=== PATIENT | female | born 1940 | race Asian ===

== ENCOUNTER 2022-01-25 21:34 | Inpatient (IN) | payer MEDICARE, OTHER ==
[~2022-01-25] VITALS: Ht 144.8 cm; Wt 56.7 kg
--- NOTE | 2022-01-25 22:19 | NUR ---
BIBPA/DAUGHTER FOR EVALUATION OF L1 FRACTURE. REFFERED BY DR SWIFT. PATIENT ALERT AND ORIENTED X3. AMBULATORY BUT BROUGHT IN BY STRETCHER. PATIENT IN BED 04 ON MONITOR AND POX AWAITING MD SARMIENTO.
[2022-01-25] MEDS ORDERED: MORPHINE SULFATE INJ 4 MG/ML DISP.SYRIN ONE (22:48)
[2022-01-25] MEDS ORDERED: MORPHINE SULFATE INJ 2 MG/ML DISP.SYRIN IV ONE (23:00)
--- NOTE | 2022-01-25 23:00 | NUR ---
BLOOD COLLECTED AND SENT TO LAB
--- NOTE | 2022-01-25 23:00 | NUR ---
COVID SWAB DONE AND SENT TO LAB
[2022-01-25 23:32] LABS: BASOPHILS % (AUTO) 0.2 % (0.0-2.0); EOSINOPHILS % (AUTO) 0.1 % (0.0-6.0); HEMATOCRIT 30 % (33-45); HEMOGLOBIN 9.9 g/dL (11.5-14.8); LYMPHOCYTES # (AUTO) 0.6 K/uL (0.8-4.8); LYMPHOCYTES % (AUTO) 11.1 % (20.0-44.0); MEAN CORPUSCULAR HGB CONC 34 g/dl (31.0-36.0); MEAN CORPUSCULAR VOLUME 94 fL (82-100); MONOCYTES # (AUTO) 0.3 K/uL (0.1-1.30); MONOCYTES % (AUTO) 5.8 % (2.0-12.0); NEUTROPHILS # (AUTO) 4.5 K/uL (1.8-8.9); NEUTROPHILS % (AUTO) 82.8 % (43.0-81.0); PLATELET COUNT (AUTO) 513 K/uL (150-450); RED BLOOD CELL COUNT(AUTO) 3.15 MIL/uL (4.0-5.2); WHITE BLOOD COUNT (AUTO) 5.4 K/uL (4.3-11.0)
[2022-01-25 23:44] LABS: CALCIUM, SERUM 9.1 mg/dL (8.5-10.1); CREATININE 1.2 mg/dL (0.6-1.3); POTASSIUM 5.7 mmol/L (3.5-5.1)
[2022-01-26] VITALS (32 sets, daily range): BP systolic 46–145; BP diastolic 27–100
[2022-01-26] MEDS ORDERED: DEXTROSE 50%-WATER 50 ML DISP.SYRIN IVP STA (00:10)
[2022-01-26] MEDS ORDERED: ACETAMINOPHEN 325 MG TABLET PO PRN (00:30)
[2022-01-26] MEDS ORDERED: MORPHINE SULFATE INJ 2 MG/ML DISP.SYRIN IV PRN (00:30)
[2022-01-26] MEDS ORDERED: ONDANSETRON HCL/PF 4 MG/2 ML VIAL IVP PRN (00:30)
--- NOTE | 2022-01-26 00:53 | NUR ---
REPORT GIVEN TO PHOEBE JHAVERI
[2022-01-26] MEDS ORDERED: Calcium Gluconate 1GM/10ML 4.65 MEQ in IV NS 0.9% 100 ML IV ONE (01:12)
[2022-01-26] MEDS ORDERED: INSULIN REGULAR, HUMAN 100 UNIT/ML 10 ML VIAL IV STA (01:13)
[2022-01-26] MEDS ORDERED: INSULIN REGULAR, HUMAN 100 UNIT/ML 10 ML VIAL ONE (02:13)
[2022-01-26] MEDS ORDERED: DEXTROSE 50%-WATER 50 ML DISP.SYRIN ONE (02:13)
[2022-01-26] MEDS ORDERED: Calcium Gluconate 0.465 MEQ/ML VIAL IV ONE (02:30)
[2022-01-26] MEDS: IV NS 0.9% 1,000 ML IV SCH ×2 (02:40→16:25)
[2022-01-26] MEDS ORDERED: ACETAMINOPHEN 325 MG TABLET ONE (02:44)
--- NOTE | 2022-01-26 03:05 | NUR ---
RT NOTE NASOTRACHEAL SUCTION DONE, MODERATE THICK BROWN SECRETIONS NOTED. PHOEBE SANDERSON AT BEDSIDE. B/S IMPROVED POST SUCTION.
[2022-01-26] MEDS ORDERED: VANCOMYCIN 1 GM VIAL ONE (03:58)
[2022-01-26] MEDS ORDERED: VANCOMYCIN 1 GM in IV D5W 250 ML IV SCH (04:00)
[2022-01-26] MEDS ORDERED: IV NS 0.9% 1,000 ML BAG IV ONE (04:00)
[2022-01-26] MEDS ORDERED: PIPERACILLIN /TAZOBACTAM 3.375 G VIAL IV ONE (05:06)
[2022-01-26] MEDS ORDERED: NOREPINEPHRINE 4 MG/4 ML AMPUL IV ONE (05:47)
--- NOTE | 2022-01-26 05:58 | NUR ---
LEVOPHED INITIATED AT 01.MCG/KG/MIN FOR SBP IN 60S.
[2022-01-26] MEDS ORDERED: PIPERACILLIN /TAZOBACTAM 3.375 G in IV D5W 50 ML IV SCH (06:00)
[2022-01-26] MEDS ORDERED: NOREPINEPHRINE 8 MG in IV NS 0.9% 242 ML IV PRN (06:00)
--- NOTE | 2022-01-26 06:12 | NUR ---
LEVOPHED TITRATED UP TO 0.2MCG/KG/MIN
[2022-01-26 06:13] LABS: HEMOGLOBIN 8.2 g/dL (11.5-14.8)
--- NOTE | 2022-01-26 07:30 | NUR ---
RECIVED PT FROM BIBI RN PT AWAKE AND ALERT FALLOW comand resportion spont and easy ON LEVOPHED DRIP AT 0.2MCg/kg/min infused and patent on rt for arm
--- NOTE | 2022-01-26 07:35 | NUR ---
WATING FOR ICU BED
--- NOTE | 2022-01-26 07:56 | NUR ---
room [id number]
[2022-01-26] MEDS ORDERED: PANT40TA49 PO (08:01)
[2022-01-26] MEDS ORDERED: METH750T3 PO (08:01)
[2022-01-26] MEDS ORDERED: AMLO-212 PO (08:01)
[2022-01-26] MEDS ORDERED: MULT-447 PO (08:01)
[2022-01-26] MEDS ORDERED: LOSA25TA27 PO (08:01)
[2022-01-26] MEDS ORDERED: GABA-532 PO (08:01)
[2022-01-26] MEDS ORDERED: CHOL100043 PO (08:01)
[2022-01-26] MEDS ORDERED: NEBI5TAB8 PO (08:01)
[2022-01-26] MEDS ORDERED: ATOR10TA PO (08:01)
[2022-01-26 08:07] LABS: ABG BASE EXCESS -5.7 mmol/L; ABG OXYGEN SATURATION 95.8 % (92.0-98.5); ABG PCO2 41.4 mmHg (35.0-45.0); ABG PH 7.306 (7.350-7.450); ABG PO2 90.2 mmHg (75.0-100.0); AaDO2 75.1 mmHg; COHb 0.4 % (0.5-1.5); MetHb 0.3 % (0.0-1.5); O2Hb 95.1 % (94.0-97.0); SITE, ABG Right Radial
--- NOTE | 2022-01-26 08:18 | NUR ---
HAND OFF TO ERIC LOWRY AT BED SIDE SEE PT condition up ate
[2022-01-26] MEDS ORDERED: ENOXAPARIN SODIUM 30 MG/0.3 ML DISP.SYRIN SQ SCH (09:00)
--- NOTE | 2022-01-26 09:00 | NUR ---
BILINGUAL TRAINER NOTES PATIENT ADMITTED FROM ER 81 Y/OLD FEMALE ON Dx OF FALL LOWER BACK FX, HYPOTENSION ON LEVOPHED 0.2 MCG/KG/MIN. PATIENT A/O X3, ON O2-2LNC. NO SOB, NO RESPIRATORY DISTRESS. SKIN ASSESSMENT DONE INTACT ONLY BRUISES BILATERAL FOOT, INNER SIDE, AND SCAB ON RIGHT KNEE. PICTURE TAKEN. PATIENT REFUSED PAIN. IV ACCESS ON RFA INTACT. INFUSING NS @75 ML/HR INTACT. CALL LIGHT WITHIN TO REACH. WILL FOLLOW UP.
[2022-01-26 09:42] LABS: ALANINE AMINOTRANSFERASE 94 U/L (12-78); ALBUMIN 1.6 g/dL (3.4-5.0); ALKALINE PHOSPHATASE 227 U/L (46-116); ASPARTATE AMINOTRANSFERASE 35 U/L (15-37); BILIRUBIN,TOTAL 0.8 mg/dL (0.2-1.0); CALCIUM, SERUM 8.7 mg/dL (8.5-10.1); CARBON DIOXIDE 22 mmol/L (21-32); CHLORIDE 92 mmol/L (98-107); CREATININE 1.3 mg/dL (0.6-1.3); GLUCOSE 82 mg/dL (74-106); MAGNESIUM 2.1 mg/dL (1.8-2.4); PHOSPHORUS 4.4 mg/dL (2.5-4.9); POTASSIUM 4.4 mmol/L (3.5-5.1); SODIUM SERUM 124 mmol/L (136-145); TOTAL PROTEIN, SERUM 5.4 g/dL (6.4-8.2); UREA NITROGEN, BLOOD 28 mg/dL (7-18)
[2022-01-26] MEDS ORDERED: ANESTHESIA TRAY IN PYXIS 1 EA TRAY MC ONE (10:10)
[2022-01-26] MEDS: IV NS 0.9% 1,000 ML IV PRN ×2 (10:11→16:25)
[2022-01-26] MEDS: NOREPINEPHRINE 8 MG in IV NS 0.9% 242 ML IV PRN ×3 (10:23→21:39)
[2022-01-26] MEDS ORDERED: BUPIVACAINE 0.25% 75 MG/30 ML VIAL ONE (10:33)
--- NOTE | 2022-01-26 11:00 | NUR ---
RN NOTES ORTHOPEDIC PA AT BEDSIDE AT THIS TIME ASSESSING PATIENT.PER PA PATIENT WILL GO SURGERY TOMORROW 1300PM. 1130- GET CALL FROM ORTHOPEDIC PA AND NOTIFIED SURGEON POSTPONED SURGERY,BECAUSE OF PATIENT COVID-19 POSITIVE.
[2022-01-26 11:24] LABS: EOSINOPHILS % (AUTO) 0.2 % (0.0-6.0); HEMATOCRIT 32 % (33-45); HEMOGLOBIN 10.3 g/dL (11.5-14.8); LYMPHOCYTES # (AUTO) 0.2 K/uL (0.8-4.8); LYMPHOCYTES % (AUTO) 13.5 % (20.0-44.0); MEAN CORPUSCULAR HGB CONC 32 g/dl (31.0-36.0); MEAN CORPUSCULAR VOLUME 99 fL (82-100); MONOCYTES # (AUTO) 0.2 K/uL (0.1-1.30); NEUTROPHILS # (AUTO) 1.4 K/uL (1.8-8.9); NEUTROPHILS % (AUTO) 77.3 % (43.0-81.0); PLATELET COUNT (AUTO) 383 K/uL (150-450); RED BLOOD CELL COUNT(AUTO) 3.23 MIL/uL (4.0-5.2)
[2022-01-26 11:34] LABS: WHITE BLOOD COUNT (AUTO) 1.8 K/uL (4.3-11.0)
[2022-01-26] MEDS: PIPERACILLIN /TAZOBACTAM 2.25 G in IV D5W 50 ML IV SCH ×2 (12:35→17:24)
--- NOTE | 2022-01-26 14:14 | NUR ---
rn notes patient picker/puller at this time for emergency surgery laparoscopic bowl surgery via surgeon Dr Shah. family next to the bed.
[2022-01-26] MEDS ORDERED: FENTANYL PF 100MCG/2ML AMPUL ONE (14:41)
[2022-01-26] MEDS ORDERED: ROCURONIUM BROMIDE 50 MG/5 ML ONE (14:42)
[2022-01-26] MEDS ORDERED: MIDAZOLAM HCL 2 MG/2ML VIAL ONE (14:42)
[2022-01-26] MEDS ORDERED: FAMOTIDINE/PF INJ 20 MG/2 ML VIAL IV ONE (14:42)
[2022-01-26] MEDS ORDERED: METHYLENE BLUE 10 ML VIAL ONE (15:29)
[2022-01-26 15:32] LABS: BAND % (MANUAL) 46 % (0.0-5.0); LYMPHOCYTES % (MANUAL) 18 % (16-48); METAMYELOCYTES % 5 % (0-0); MONOCYTES % (MANUAL) 5 % (0-11.0); MYELOCYTES % 1 % (0-0); NEUTROPHILS % (MANUAL) 25 (42-76)
--- NOTE | 2022-01-26 16:25 | NUR ---
RN NOTES PATIENT BACK AT THIS TIME FROM SURGERY, MECHANICAL VENTILATOR SETTING TUBE 7.0/18, AC-16, PEEP-5, TV- 400, FIO2-100%. PATIENT SEDATED AT THIS TIME. NG TUBE INSERTED, PATIENT HAS ABDOMINAL BIG INCISION, DRESSING INTACT, AND CLEAN. LAWRENCE PRESENT AND INTACT. APPLIED DVT PUMP. BILATERAL WRIST RESTRAIN INTACT, KELLY DRAINING VIA GRAVITY LIGHT YELLOW OUTPUT.IV ACCESS ON GLADIS MIDLINE INTACT INFUSING LEVOPHED 0.4MCG/KG/MIN, AND NS@250ML/HR. ASSIST TURN AND REPOSTION. WILL FOLLOW UP.
--- NOTE | 2022-01-26 16:48 | NUR ---
PT. received from OR and placed into mechanical ventilator via ET tube size 7.0 secured @ 18 cm lipline with settings below as ordered: AC 16 VT 400 ml FIO2 100% PEEP +5 BREATH SOUNDS CLEAR BILATERAL, SXN SMALL AMNT WHITISH SECRETIONS. VENT PLUGGED INTO RED OUTLET WITH ALARMS ON AND FUNCTIONAL. BVM @ BEDSIDE Addendum: 01/26/22 at 1656 by SELENE ROBLES RT Amended: Links added.
[2022-01-26] MEDS ORDERED: PROPOFOL 100 ML IV PRN (17:30)
[2022-01-26 17:37] LABS: ABG OXYGEN SATURATION 99.6 % (92.0-98.5); ABG PCO2 35.4 mmHg (35.0-45.0); ABG PH 7.252 (7.350-7.450); ABG PO2 412.3 mmHg (75.0-100.0); AaDO2 265.3 mmHg; MetHb 0.5 % (0.0-1.5); O2Hb 99.1 % (94.0-97.0); PEEP,BG 5 cm H2O; SITE, ABG Right Brachial; VT, ABG 400 mL
--- NOTE | 2022-01-26 17:47 | NUR ---
vent changes below per dr. rogers: vt 425 ml fio2 40% rn aware on vent changes made Addendum: 01/26/22 at 1747 by SELENE ROBLES RT Amended: Links added.
--- NOTE | 2022-01-26 18:30 | NUR ---
rn notes patient still sedated, no acute respiratory distress, [place]-10ml, urine output 600ml, dvt pump on, rechecked bilateral wrist circulation , restrain intact. infusing Levophed 0.4 mcg/kg/min, and ns @250 ml/he on andrew midline intact. assist turn and reposition q 2 hr.endorsed oncoming nurse lj.
--- NOTE | 2022-01-26 19:41 | NUR ---
RCVD PT ORALLY INTUBATED W/ 7.0 ETT SECURED @ 18 CM LIP LINE ON VENT WITH THE SETTINGS OF AC 16,VT 425, FIO2 40%, PEEP 5. PT IS SEDATED. VENT PLUGGED INTO RED OUTLET, VENT ALARMS ON AND AUDIBLE. AMBU BAG @ BEDSIDE. NO RESPIRATORY DISTRESS NOTED AT THIS TIME. WILL CONTINUE TO MONITOR T/O SHIFT.
[2022-01-27] VITALS (96 sets, daily range): BP systolic 55–143; BP diastolic 23–80
[2022-01-27] MEDS: PIPERACILLIN /TAZOBACTAM 2.25 G in IV D5W 50 ML IV SCH ×5 (00:14→23:29)
[2022-01-27] MEDS ORDERED: NOREPINEPHRINE 8MG/250ML RTU 250 ML IV ONE ×2 (02:18→06:16)
[2022-01-27] MEDS: NOREPINEPHRINE 8 MG in IV NS 0.9% 242 ML IV PRN ×2 (02:37→06:38)
[2022-01-27] MEDS: MORPHINE SULFATE INJ 2 MG/ML DISP.SYRIN IV PRN ×2 (02:59→19:58)
[2022-01-27] MEDS: VANCOMYCIN 0.75 GM in IV D5W 250 ML IV SCH (03:26)
[2022-01-27 04:24] LABS: EOSINOPHILS % (AUTO) 0.5 % (0.0-6.0); HEMATOCRIT 30 % (33-45); HEMOGLOBIN 9.6 g/dL (11.5-14.8); LYMPHOCYTES # (AUTO) 0.2 K/uL (0.8-4.8); LYMPHOCYTES % (AUTO) 4.8 % (20.0-44.0); MEAN CORPUSCULAR HGB CONC 33 g/dl (31.0-36.0); MEAN CORPUSCULAR VOLUME 96 fL (82-100); MONOCYTES # (AUTO) 0.1 K/uL (0.1-1.30); MONOCYTES % (AUTO) 2.7 % (2.0-12.0); NEUTROPHILS # (AUTO) 4.4 K/uL (1.8-8.9); PLATELET COUNT (AUTO) 311 K/uL (150-450); RED BLOOD CELL COUNT(AUTO) 3.08 MIL/uL (4.0-5.2); WHITE BLOOD COUNT (AUTO) 4.8 K/uL (4.3-11.0)
[2022-01-27 04:49] LABS: ALANINE AMINOTRANSFERASE 66 U/L (12-78); ALKALINE PHOSPHATASE 173 U/L (46-116); ASPARTATE AMINOTRANSFERASE 47 U/L (15-37); BILIRUBIN,TOTAL 0.8 mg/dL (0.2-1.0); CALCIUM, SERUM 7.1 mg/dL (8.5-10.1); CARBON DIOXIDE 15 mmol/L (21-32); CHLORIDE 102 mmol/L (98-107); CREATININE 1.5 mg/dL (0.6-1.3); GLUCOSE 110 mg/dL (74-106); MAGNESIUM 1.8 mg/dL (1.8-2.4); PHOSPHORUS 4.4 mg/dL (2.5-4.9); POTASSIUM 4.6 mmol/L (3.5-5.1); SODIUM SERUM 131 mmol/L (136-145); TOTAL PROTEIN, SERUM 5.1 g/dL (6.4-8.2); UREA NITROGEN, BLOOD 28 mg/dL (7-18)
[2022-01-27 04:54] LABS: ALBUMIN 1.3 g/dL (3.4-5.0)
[2022-01-27 05:45] LABS: ABG BASE EXCESS -13.1 mmol/L; ABG OXYGEN SATURATION 97.7 % (92.0-98.5); ABG PCO2 26.1 mmHg (35.0-45.0); ABG PH 7.284 (7.350-7.450); ABG PO2 109.7 mmHg (75.0-100.0); AaDO2 145.5 mmHg; COHb 0.2 % (0.5-1.5); MetHb 0.5 % (0.0-1.5); PEEP,BG 5 cm H2O; SITE, ABG Right Radial; VENT MODE, BG AC 16 425 40% +5; VT, ABG 425 mL
--- NOTE | 2022-01-27 07:05 | NUR ---
RN NOTES RECEIVED PT ON BED, INTUBATED AND SEDATED , ON DIPRIVAN AT 5 MCG/KG/MIN, RESPONDS TO PAINFUL STIMULI, ON TELE ST HR IN 120'S , KELLY DRAINING TO GRAVITY, ABD SURGICAL SITE ,CDI WITH LAWRENCE DRAIN ATTACHED TO BULB SUCTION, WITH SMALL AMOUNT OF BLOODY DRAINAGE, KELLY DRAINING TO GRAVITY, NGT INPLACED, PLACEMENT VERIFIED, IV SITE CDI, LEVO AT .8 FOR BP SUPPORT AND DIPRIVAN AT 5 MCG /KG/MIN RUNNING FOR SEDATION , SR UP x3, CALL LIGHT WITHIN EASY REACH, BED LOCKED AND IN LOWEST POSITION, CONTINUE TO MONITOR.
[2022-01-27] MEDS ORDERED: IV D5/ 0.9% NACL 1,000 ML IV PRN (07:30)
--- NOTE | 2022-01-27 07:38 | NUR ---
RN NOTES ENDORSED CARE OF PATIENT TO AM NURSE. PATIENT IS INTUBATED UNDER MECHANICAL VENTILATION WITH ORDERED SETTINGS, TOLERATING WELL, NO SOB NOTED, O2 SAT 99%. PATIENT IS SEDATED ON DIPRIVAN AT 5 MCG/KG/MIN. BP CONTROL WITH LEVO DRIP AT 0.8 MCG/KG/MIN. PATIENT HAS A LAWRENCE DRAINAGE, DRAINING SEROSANGUINEOUS FLUIDS. SAFETY MEASURES IMPLEMENTED PER HOSPITAL PROTOCOLS. ENDORSED CARE OF PATIENT TO AM NURSE FOR SUELLEN.
[2022-01-27] MEDS ORDERED: NOREPINEPHRINE 32 MG in IV NS 0.9% 218 ML IV PRN (10:30)
[2022-01-27] MEDS: Sodium Bicarbonate 100 MEQ in IV D5 / 0.2% NACL 1,000 ML IV SCH ×2 (10:31→20:31)
[2022-01-27] MEDS ORDERED: IV NS 0.9% 1,000 ML IV ONE (11:30)
--- NOTE | 2022-01-27 13:50 | NUR ---
RN NOTES HR IN 140"S , RR =27 , DR ATKINSON NOTIFIED , ORDER RECEIVED TO CHANGE LEVO TO WEST DRIP PER MD ORDER .
[2022-01-27] MEDS: PHENYLEPHRINE 100 MG in IV NS 0.9% 240 ML IV PRN (15:20)
[2022-01-27] MEDS: HEPARIN SODIUM, PORCINE 5000 UNITS/1 ML VIAL SQ SCH (16:18)
--- NOTE | 2022-01-27 18:30 | NUR ---
RN NOTES PT REMAINS INTUBATED , MORE ALET/ FOLLOWS SIMPLE COMMAND, TOLERAING VENT SETTING WELL, ON LEVO AT .2 MCG/KG/MIN, WEST AT 3 MCG/KG/MIN , IN PROCESS OF SWITCHING LEVO TO WEST , NGT TUBE TO BULB SUCTION WITH SMALL AMOUNT OF BLOODY DRAINAGE ,DRESSING TO ABD CDI, KELLY DRAINING TO GRAVITY, SR UP x3, CALL LIGHT WITHIN EASY REACH, BED LOCKED AND IN LOWEST POSITION, CONTINUE TO MONITOR .
[2022-01-28] VITALS (95 sets, daily range): BP systolic 69–149; BP diastolic 29–96
[2022-01-28] MEDS: Sodium Bicarbonate 100 MEQ in IV D5 / 0.2% NACL 1,000 ML IV SCH ×2 (04:14→10:16)
[2022-01-28] MEDS: VANCOMYCIN 0.75 GM in IV D5W 250 ML IV SCH (04:15)
[2022-01-28 04:41] LABS: CALCIUM, SERUM 6.2 mg/dL (8.5-10.1); CREATININE 1.2 mg/dL (0.6-1.3); POTASSIUM 3.5 mmol/L (3.5-5.1)
[2022-01-28] MEDS: PHENYLEPHRINE 100 MG in IV NS 0.9% 240 ML IV PRN (05:10)
[2022-01-28] MEDS: PIPERACILLIN /TAZOBACTAM 2.25 G in IV D5W 50 ML IV SCH ×4 (05:30→23:29)
--- NOTE | 2022-01-28 07:34 | NUR ---
RN/ICU PT RECEIVED IN STABLE CONDITON ON MECHANICAL VENILATOR NO S/S OF RESPIRATORY DISTRESS, BREATHS ARE EVEN AND UNLABORED. BEDSIDE MONITOR SHOWS SINUS TACHY C. 116, BP STABLE 97/49 REST OF VITAL WNL. PER REPORT DURING WEENING PT WAS ABLE TO BE ALERT AND ABLE TO FOLLOW COMMANDS. FURTHER WEENING WILL ASSESS FOR EXTUATION READINESS. PT IS ON LEVO 0.2 AND WEST AT 3 RUNNING THROUGH GLADIS MIDLINE. NG TUBE SET TO INTERMITTANT SUCTION IN PLACE NO S/S OF MIGRATION. KELLY CATHETER IN PLACE DRAINING URINE.
--- NOTE | 2022-01-28 08:00 | NUR ---
UPON FURTHER ASSESSMENT PT IS ALERT AND ABLE TO FOLLOW COMMANDS OFF LEVO CHANGED TO SIMV
[2022-01-28 09:00] LABS: BASOPHILS % (AUTO) 0.1 % (0.0-2.0); EOSINOPHILS % (AUTO) 0.2 % (0.0-6.0); HEMATOCRIT 21 % (33-45); LYMPHOCYTES # (AUTO) 0.2 K/uL (0.8-4.8); LYMPHOCYTES % (AUTO) 2.3 % (20.0-44.0); MEAN CORPUSCULAR HGB CONC 33 g/dl (31.0-36.0); MEAN CORPUSCULAR VOLUME 94 fL (82-100); MONOCYTES % (AUTO) 0.4 % (2.0-12.0); NEUTROPHILS # (AUTO) 9.7 K/uL (1.8-8.9); PLATELET COUNT (AUTO) 189 K/uL (150-450); RED BLOOD CELL COUNT(AUTO) 2.27 MIL/uL (4.0-5.2)
[2022-01-28] MEDS: HEPARIN SODIUM, PORCINE 5000 UNITS/1 ML VIAL SQ SCH ×2 (09:00→17:00)
[2022-01-28 09:03] LABS: ABG BASE EXCESS -1.6 mmol/L; ABG OXYGEN SATURATION 98.4 % (92.0-98.5); ABG PCO2 29.8 mmHg (35.0-45.0); ABG PH 7.478 (7.350-7.450); ABG PO2 122.2 mmHg (75.0-100.0); AaDO2 128.7 mmHg; COHb 0.3 % (0.5-1.5); MetHb 0.5 % (0.0-1.5); O2Hb 97.6 % (94.0-97.0); SITE, ABG Right Brachial; VENT MODE, BG SIMV 425 RR 4 40% +5
[2022-01-28] MEDS: HYDROCORTISONE SOD SUCCINATE 100 MG/2 ML VIAL IV SCH ×3 (09:28→21:11)
--- NOTE | 2022-01-28 09:50 | NUR ---
PT EXTUBATED OXYGENATING WELL NO LABOR. SLIGHT WHEEZING NOTED AFTER 5 MINUTES POST EXTUBATION BREATHING TREATMENT TO BE GIVEN
[2022-01-28] MEDS ORDERED: IPRATROPIUM NEB FS 0.5 MG/2.5 ML AMPUL.NEB NEB PRN (10:30)
[2022-01-28] MEDS ORDERED: ALBUTEROL HALF STRENGTH 1.25 MG/3 ML VIAL.NEB NEB PRN (10:30)
[2022-01-28] MEDS: ALBUTEROL HALF STRENGTH 1.25 MG/3 ML VIAL.NEB NEB SCH ×2 (15:37→19:49)
[2022-01-28] MEDS: IPRATROPIUM NEB FS 0.5 MG/2.5 ML AMPUL.NEB NEB SCH ×2 (15:37→19:49)
[2022-01-28] MEDS: IV D5/ 0.9% NACL 1,000 ML IV PRN (18:13)
[2022-01-28 21:40] LABS: BAND % (MANUAL) 4 % (0.0-5.0); LYMPHOCYTES % (MANUAL) 5 % (16-48); MONOCYTES % (MANUAL) 4 % (0-11.0); NEUTROPHILS % (MANUAL) 87 (42-76)
[2022-01-29] VITALS (96 sets, daily range): BP systolic 68–154; BP diastolic 32–104
[2022-01-29] MEDS: ALBUTEROL HALF STRENGTH 1.25 MG/3 ML VIAL.NEB NEB SCH ×4 (01:00→19:42)
[2022-01-29] MEDS: IPRATROPIUM NEB FS 0.5 MG/2.5 ML AMPUL.NEB NEB SCH ×4 (01:00→19:42)
--- NOTE | 2022-01-29 03:35 | NUR ---
DIRECTOR OF ADULT EPILEPSY PT NOTED IN RESP DIST ABG W/RESULTS pH 7.2 pCO2 49.5 pO2 181.7 HCO3 20.[address] PT ON BIPAP.
[2022-01-29 03:38] LABS: ABG BASE EXCESS -7.1 mmol/L; ABG OXYGEN SATURATION 98.8 % (92.0-98.5); ABG PCO2 49.5 mmHg (35.0-45.0); ABG PO2 181.7 mmHg (75.0-100.0); AaDO2 191.7 mmHg; COHb 0.3 % (0.5-1.5); MetHb 0.1 % (0.0-1.5); O2Hb 98.4 % (94.0-97.0); SITE, ABG Left Radial; VENT MODE, BG SM
--- NOTE | 2022-01-29 03:39 | NUR ---
STAT ABG DONE. RN NOTIFIED WITH THE RESULT.
--- NOTE | 2022-01-29 03:51 | NUR ---
PT PLACED ON BIPAP PER RUBBER BELT SPLICER BATACLAN.
[2022-01-29] MEDS: IV D5/ 0.9% NACL 1,000 ML IV PRN (04:01)
[2022-01-29] MEDS: PHENYLEPHRINE 100 MG in IV NS 0.9% 240 ML IV PRN (04:02)
[2022-01-29] MEDS: HYDROCORTISONE SOD SUCCINATE 100 MG/2 ML VIAL IV SCH ×3 (05:17→20:52)
[2022-01-29] MEDS: PIPERACILLIN /TAZOBACTAM 2.25 G in IV D5W 50 ML IV SCH ×3 (05:18→17:15)
[2022-01-29 05:55] LABS: CREATININE 1.1 mg/dL (0.6-1.3); POTASSIUM 2.9 mmol/L (3.5-5.1)
[2022-01-29 06:02] LABS: CALCIUM, SERUM 5.9 mg/dL (8.5-10.1)
--- NOTE | 2022-01-29 06:57 | NUR ---
ENGINEER AUTOMATED EQUIPMENT CALLED LAB FOR VANCO TROUGH RESULTS; THEY WILL CALL BACK WHEN READY. WILL ENDORSE TO DAY SHIFT TO ADMINISTER.
[2022-01-29] MEDS: VANCOMYCIN 0.75 GM in IV D5W 250 ML IV SCH (07:49)
[2022-01-29 07:58] LABS: BASOPHILS % (AUTO) 0.1 % (0.0-2.0); EOSINOPHILS % (AUTO) 0.1 % (0.0-6.0); HEMATOCRIT 26 % (33-45); HEMOGLOBIN 8.5 g/dL (11.5-14.8); LYMPHOCYTES # (AUTO) 0.2 K/uL (0.8-4.8); LYMPHOCYTES % (AUTO) 2.8 % (20.0-44.0); MEAN CORPUSCULAR HGB CONC 33 g/dl (31.0-36.0); MEAN CORPUSCULAR VOLUME 93 fL (82-100); MONOCYTES % (AUTO) 0.7 % (2.0-12.0); NEUTROPHILS # (AUTO) 6.9 K/uL (1.8-8.9); NEUTROPHILS % (AUTO) 96.3 % (43.0-81.0); PLATELET COUNT (AUTO) 96 K/uL (150-450); RED BLOOD CELL COUNT(AUTO) 2.75 MIL/uL (4.0-5.2); WHITE BLOOD COUNT (AUTO) 7.2 K/uL (4.3-11.0)
--- NOTE | 2022-01-29 09:04 | NUR ---
LATEST KAELA BP 90/60. LATEST AUTOMATIC CUFF BP AFTER SHOWS 89/58. PER DR. DONNELLY ORDER, IVF HAVE BEEN DISCONTINUED.
[2022-01-29] MEDS: HEPARIN SODIUM, PORCINE 5000 UNITS/1 ML VIAL SQ SCH ×2 (09:18→16:17)
[2022-01-29] MEDS: POTASSIUM CL. PREMIX PERIPHER. 50 ML IV SCH ×6 (09:19→14:49)
[2022-01-29 10:26] LABS: LYMPHOCYTES % (MANUAL) 9 % (16-48); MONOCYTES % (MANUAL) 9 % (0-11.0); NEUTROPHILS % (MANUAL) 82 (42-76)
--- NOTE | 2022-01-29 12:58 | NUR ---
Titrate FiO2 to 40%
--- NOTE | 2022-01-29 19:22 | NUR ---
rn notes pt is resting in bed, a/ox 1. on cont. bipap sating at 100%. tele reads st in 100's. iv access on rfa 18g and andrew midline runing bonnie at 1.5 mcg/kg/min. all safety measures in place, all fall precautions in place. will endorse to operations supervisor 2nd shift rn for lj.
[2022-01-30] VITALS (73 sets, daily range): BP systolic 81–218; BP diastolic 29–113
[2022-01-30] MEDS: PIPERACILLIN /TAZOBACTAM 2.25 G in IV D5W 50 ML IV SCH ×5 (00:01→23:30)
[2022-01-30] MEDS: IPRATROPIUM NEB FS 0.5 MG/2.5 ML AMPUL.NEB NEB SCH ×4 (01:40→19:30)
[2022-01-30] MEDS: ALBUTEROL HALF STRENGTH 1.25 MG/3 ML VIAL.NEB NEB SCH ×4 (01:40→19:30)
[2022-01-30 05:04] LABS: CREATININE 0.9 mg/dL (0.6-1.3); POTASSIUM 3.2 mmol/L (3.5-5.1)
[2022-01-30] MEDS: HYDROCORTISONE SOD SUCCINATE 100 MG/2 ML VIAL IV SCH ×3 (06:17→21:14)
--- NOTE | 2022-01-30 08:00 | NUR ---
RN NOTES RECEIVED PATIENT WITH BIPAP. NO ACUTE RESPIRATORY DISTRESS. , NGT INTACT WITH INTERMITTENT SUCTION, INFUSING LEVOPHED 1.1 MCG/KG/MIN. KEEP HOB ELEVATED. ABDOMINAL DRESSING INTACT, PATIENT HAS GENERALIZED EDEMA, ELEVATED USING PILLOWS, [id number] INTACT ON GLADIS [id number]. LAWRENCE INTACT. DVT PUMP ON. DUE MEDICATION ADMINISTERED, KELLY DRAINING VIA GRAVITY. WILL FOLLOW UP.
--- NOTE | 2022-01-30 08:05 | NUR ---
RT PATIENT REMOVED FROM BIPAP AND PLACED ON 3L NC MIESHA WELL. PATIENT AWAKE, RESPONSIVE, WITH NO COMPLAINTS OF SOB AT THIS TIME. PHOEBE HAYES NOTIFIED. Addendum: 01/30/22 at 0908 by SLAVA SILVA RT Amended: Links added.
[2022-01-30] MEDS: POTASSIUM CL. PREMIX PERIPHER. 50 ML IV SCH ×6 (08:41→14:20)
[2022-01-30] MEDS: HEPARIN SODIUM, PORCINE 5000 UNITS/1 ML VIAL SQ SCH ×2 (08:42→17:20)
[2022-01-30] MEDS: IV D5/ 0.9% NACL 1,000 ML IV PRN ×2 (09:56→18:22)
[2022-01-30] MEDS: FUROSEMIDE 40 MG/4 ML VIAL IV SCH ×3 (10:50→17:20)
--- NOTE | 2022-01-30 11:08 | NUR ---
rn notes per Dr Shah get order d/c ng, and swallow evaluation. order taken and carried out.
--- NOTE | 2022-01-30 12:00 | NUR ---
RN NOTES PATIENT AWAKE, NO ACUTE RESPIRATORY DISTRESS, TOLERATING NC @2L. PATIENT A/O X3/4, FAMILY NEXT TO THE BED. HELD LEVOPHED. ASSIST TURN AND REPOSTION Q 2 HR. WILL FOLLOW UP.
[2022-01-30] MEDS: IV NS 0.9% 250 ML IV PRN (17:00)
--- NOTE | 2022-01-30 18:37 | NUR ---
RN NOTES PM CARE DONE, PATIENT ROOM AIR, DUE MEDICATION ADMINISTERED, DRESSING CHANGED, PATIENT REFUSED PAIN, ASSIST TURN AND REPOSTION Q 2 HR. INFUSING D5NS@125 ML./HR ON GLADIS MIDLINE. DUE MEDICATION ADMINISTERED. KELLY OUTPUT WAS 2000ML, BP X3 WITH GREEN COLOR. CALL LIGHT WITHIN TO REACH. ENDORSED ONCOMING NURSE FOLLOW PLAN OF CARE.
[2022-01-31] VITALS (10 sets, daily range): BP systolic 91–168; BP diastolic 51–105
--- NOTE | 2022-01-31 | NUR ---
ROSA MARIA SANDHU NOTE PT CORE TEMP WAS LOW, BODY COLD TO TOUCH LATOYA SKAGGS INFORMED AND RECEIVED NEW ORDER FOR ASHLEY CAI. Addendum: 02/01/22 at 0407 by SANCHEZ GRANADOS RN WRONG DATE IT'S 02/01 NOT 01/31
[2022-01-31] MEDS: IV D5/ 0.9% NACL 1,000 ML IV PRN (01:35)
[2022-01-31] MEDS: IPRATROPIUM NEB FS 0.5 MG/2.5 ML AMPUL.NEB NEB SCH ×4 (01:47→20:12)
[2022-01-31] MEDS: ALBUTEROL HALF STRENGTH 1.25 MG/3 ML VIAL.NEB NEB SCH ×4 (01:48→20:11)
[2022-01-31] MEDS: PIPERACILLIN /TAZOBACTAM 2.25 G in IV D5W 50 ML IV SCH ×3 (05:00→17:35)
[2022-01-31] MEDS: HYDROCORTISONE SOD SUCCINATE 100 MG/2 ML VIAL IV SCH ×3 (05:00→21:23)
[2022-01-31 05:05] LABS: BASOPHILS % (AUTO) 0.1 % (0.0-2.0); HEMATOCRIT 28 % (33-45); HEMOGLOBIN 9.4 g/dL (11.5-14.8); LYMPHOCYTES # (AUTO) 0.2 K/uL (0.8-4.8); LYMPHOCYTES % (AUTO) 2.5 % (20.0-44.0); MEAN CORPUSCULAR HGB CONC 34 g/dl (31.0-36.0); MEAN CORPUSCULAR VOLUME 91 fL (82-100); MONOCYTES # (AUTO) 0.2 K/uL (0.1-1.30); MONOCYTES % (AUTO) 2.2 % (2.0-12.0); NEUTROPHILS # (AUTO) 7.3 K/uL (1.8-8.9); NEUTROPHILS % (AUTO) 95.2 % (43.0-81.0); PLATELET COUNT (AUTO) 111 K/uL (150-450); RED BLOOD CELL COUNT(AUTO) 3.05 MIL/uL (4.0-5.2); WHITE BLOOD COUNT (AUTO) 7.7 K/uL (4.3-11.0)
[2022-01-31 05:26] LABS: CALCIUM, SERUM 6.1 mg/dL (8.5-10.1)
[2022-01-31 05:35] LABS: POTASSIUM 2.8 mmol/L (3.5-5.1)
[2022-01-31 06:06] LABS: BAND % (MANUAL) 6 % (0.0-5.0); BASOPHILS % (MANUAL) 0 % (0.0-2.0); EOSINOPHILS % (MANUAL) 0 % (0-4); LYMPHOCYTES % (MANUAL) 4 % (16-48); MONOCYTES % (MANUAL) 3 % (0-11.0); NEUTROPHILS % (MANUAL) 87 (42-76)
--- NOTE | 2022-01-31 06:27 | NUR ---
BUSINESS OPERATIONS ANALYST NO OUTPUT FROM LAWRENCE DRAINAGE
--- NOTE | 2022-01-31 07:30 | NUR ---
RN NOTES RECEIVED PATIENT WITH BIPAP. NO ACUTE RESPIRATORY DISTRESS. , NGT INTACT WITH INTERMITTENT SUCTION, KEEP HOB ELEVATED. ABDOMINAL DRESSING INTACT, PATIENT HAS GENERALIZED EDEMA, ELEVATED USING PILLOWS, IV ACCESS INTACT ON GLADIS MIDLINE D5NS @125ML/HR. LAWRENCE INTACT. PATIENT NPO. KELLY DRAINING VIA GRAVITY. WILL CONTINUE THE CARE THROUGHOUT THE SHIFT.
[2022-01-31] MEDS ORDERED: POTASSIUM CL. PREMIX PERIPHER. 50 ML IV SCH (08:00)
[2022-01-31] MEDS ORDERED: AMIODARONE 150 MG in IV D5W 100 ML IV ONE (08:30)
[2022-01-31] MEDS: HEPARIN SODIUM, PORCINE 5000 UNITS/1 ML VIAL SQ SCH ×3 (08:40→18:46)
[2022-01-31] MEDS: MORPHINE SULFATE INJ 2 MG/ML DISP.SYRIN IV PRN (08:41)
[2022-01-31] MEDS: AMIODARONE 450 MG in IV D5W 250 ML IV PRN ×3 (08:58→19:50)
[2022-01-31] MEDS ORDERED: POTASSIUM CHLORIDE 20 MEQ TAB.PRT.SR PO ONE (11:00)
[2022-01-31] MEDS: IV NS 0.9% 250 ML IV PRN (11:23)
[2022-01-31 13:01] LABS: ABG BASE EXCESS -3.2 mmol/L; ABG OXYGEN SATURATION 93.1 % (92.0-98.5); ABG PCO2 33.1 mmHg (35.0-45.0); ABG PH 7.415 (7.350-7.450); ABG PO2 71.5 mmHg (75.0-100.0); AaDO2 38.6 mmHg; COHb 0.3 % (0.5-1.5); MetHb 0.1 % (0.0-1.5); O2Hb 92.7 % (94.0-97.0); SITE, ABG Right Radial; VENT MODE, BG ROOM AIR
[2022-01-31 17:16] LABS: OCCULT BLOOD STOOL POSITIVE (NEGATIVE)
[2022-01-31] MEDS ORDERED: FUROSEMIDE 40 MG/4 ML VIAL IV ONE (18:30)
--- NOTE | 2022-01-31 20:00 | NUR ---
ROSA MARIA RN NOTE PT IN BED AWAKE. A/O X 2, NO SOB, NO DISTRESS OR DISCOMFORT NOTED. DENIES PAIN. NOTED PT O2 SAT 88%, O2 2L NC APPLIED O2 SAT CAME UP 93%. ALSO RT IS GIVING BREATHING TX. WHICH IS HELPING.ON TELE MONITOR AFIB CONTROLLED HR 70. ABD SX DRESSING I/C/D. LAWRENCE DRAINING WITH SEROSANGUINEOUS FLUID. AMIO DRIP 0.5 MG/HR INFUSING WELL. B/P ON LOW SIDE. F/C INTACT AND PATENT DRAINING YELLOWISH COLOR URINE. ALL NEEDS ATTENDED. FAMILY AT BED SIDE. CONTINUE TO MONITOR HER.
--- NOTE | 2022-01-31 21:57 | NUR ---
ROSA MARIA RN NOTE ON TELE PT BECOME SR HR 72. CONTINUE TO MONITOR.
[2022-02-01] VITALS: BP 118/71
--- NOTE | 2022-02-01 00:02 | NUR ---
ROSA MARIA RN NOTE INFORMED DR KLEIN REGARDING MAG LEVEL 1.6. PER MD FOLLOW UP IN AM TEAM.
[2022-02-01] MEDS: PIPERACILLIN /TAZOBACTAM 2.25 G in IV D5W 50 ML IV SCH ×4 (00:45→17:00)
[2022-02-01] MEDS: IPRATROPIUM NEB FS 0.5 MG/2.5 ML AMPUL.NEB NEB SCH ×4 (02:37→20:13)
[2022-02-01] MEDS: ALBUTEROL HALF STRENGTH 1.25 MG/3 ML VIAL.NEB NEB SCH ×4 (02:37→20:13)
[2022-02-01 04:00] VITALS: BP 126/76
[2022-02-01] MEDS: HYDROCORTISONE SOD SUCCINATE 100 MG/2 ML VIAL IV SCH ×3 (05:25→21:15)
--- NOTE | 2022-02-01 06:15 | NUR ---
ROSA MARIA RN NOTE INFORMED DR MOTA PT HR 57 AND RYTHEM CHANGED TO SR SINCE [address] DEL VALLE TO STOPPED AMIO DRIP. PT IN NO DISTRESS.
--- NOTE | 2022-02-01 06:30 | NUR ---
ROSA MARIA RN NOTE PT IN BED ASLEEP, REMAIN JARED HUGGER ON. PT CORE TEMP STILL LOW. PT AT TIME NON COMPLIANT C/O B HUGGER TOO WARM. ON TELE SB 57. ABD SURGICAL DSG CHANGED DUE TO SPOILED. PT IN NO DISTRESS OR DISCOMFORT NOTED. KEPT HER DRY AND CLEAN. ALL NEEDS ATTENDED. WILL ENDORSE TO DAY SHIFT NURSE FOR CONTINUE TO CARE.
[2022-02-01 06:37] LABS: HEMATOCRIT 29 % (33-45); HEMOGLOBIN 9.5 g/dL (11.5-14.8); LYMPHOCYTES # (AUTO) 0.2 K/uL (0.8-4.8); LYMPHOCYTES % (AUTO) 2.6 % (20.0-44.0); MEAN CORPUSCULAR HGB CONC 33 g/dl (31.0-36.0); MEAN CORPUSCULAR VOLUME 92 fL (82-100); MONOCYTES # (AUTO) 0.1 K/uL (0.1-1.30); MONOCYTES % (AUTO) 1.3 % (2.0-12.0); NEUTROPHILS # (AUTO) 7.6 K/uL (1.8-8.9); NEUTROPHILS % (AUTO) 96.1 % (43.0-81.0); PLATELET COUNT (AUTO) 96 K/uL (150-450); RED BLOOD CELL COUNT(AUTO) 3.13 MIL/uL (4.0-5.2); WHITE BLOOD COUNT (AUTO) 7.9 K/uL (4.3-11.0)
--- NOTE | 2022-02-01 07:29 | NUR ---
RN OPENING NOTES PT IN BED AWAKE, ALERT AND RESPOSIVE. DENIES PAIN, NO FACIAL GRIMACING NOTED. ON 4L 02 VIA NC, LABORED BREATHING NOTED, NOT IN DISTRESS. ON TELE MONITOR READING SR WITH HR= 67. ABDOMINAL DRESSING DRESSING I/C/D. LAWRENCE DRAINING WITH LESS THAN 5CC SEROSANGUINEOUS FLUID F/C PATENT AND INTACT DRAINING YELLOWISH COLOR URINE. GLADIS MIDLINE NOTED PATENT AND INTACT, TKO. BED IN LOWEST POSITION. CALL LIGHT WITHIN REACH. BED RAILS UP. ALL NEEDS ATTENDED. WILL CONTINUE TO MONITOR.
[2022-02-01 08:00] VITALS: BP 145/67
[2022-02-01 08:07] LABS: ALANINE AMINOTRANSFERASE 37 U/L (12-78); ALKALINE PHOSPHATASE 191 U/L (46-116); ASPARTATE AMINOTRANSFERASE 25 U/L (15-37); BILIRUBIN,TOTAL 0.4 mg/dL (0.2-1.0); CARBON DIOXIDE 27 mmol/L (21-32); GLUCOSE 217 mg/dL (74-106); MAGNESIUM 1.4 mg/dL (1.8-2.4); PHOSPHORUS 2.3 mg/dL (2.5-4.9); TOTAL PROTEIN, SERUM 5.1 g/dL (6.4-8.2); UREA NITROGEN, BLOOD 26 mg/dL (7-18)
[2022-02-01 08:11] LABS: ALBUMIN 1.3 g/dL (3.4-5.0); CALCIUM, SERUM 5.9 mg/dL (8.5-10.1)
[2022-02-01] MEDS: HEPARIN SODIUM, PORCINE 5000 UNITS/1 ML VIAL SQ SCH ×2 (08:11→16:29)
[2022-02-01 08:15] LABS: CHLORIDE 103 mmol/L (98-107); POTASSIUM 2.9 mmol/L (3.5-5.1); SODIUM SERUM 139 mmol/L (136-145)
--- NOTE | 2022-02-01 09:00 | NUR ---
RN NOTES PATIENT SEEN BY MD ON BEDSIDE, INFORMED RUE SWELLING, WITH NEW ORDER: ULTRASOUND, D/C D5 05/02 NS FLUIDS AND CHANGED DIET TO SOFT DIET. NOTED AND CARRIED OUT. WILL CONTINUE TO MONITOR PATIENT. Addendum: 02/01/22 at 1043 by SELMA ROTHMAN RN WRONG CHART, WRONG ENTRY
[2022-02-01] MEDS: POTASSIUM CL. PREMIX PERIPHER. 50 ML IV SCH ×10 (09:11→20:20)
--- NOTE | 2022-02-01 10:55 | NUR ---
RN NOTES SEEN BY PT, PER PT PATIENT IS OK TO SIT AT THE EDGE OF THE BED. WILL CONTINUE TO MONITOR PATIENT.
[2022-02-01] MEDS ORDERED: Calcium Gluconate 0.465 MEQ/ML VIAL IV ONE (11:30)
[2022-02-01] MEDS ORDERED: ERGOCALCIFEROL (VITAMIN D 2) 50,000 UNIT CAPSULE PO SCH (11:30)
[2022-02-01 12:00] VITALS: BP 152/69
[2022-02-01] MEDS ORDERED: Calcium Gluconate 1GM/10ML 4.65 MEQ in IV NS 0.9% 100 ML IV ONE ×2 (12:00→13:00)
[2022-02-01] MEDS: ERGOCALCIFEROL (VITAMIN D2) 8,000 UNIT/ML PO SCH (12:13)
[2022-02-01 12:14] LABS: CALCIUM, SERUM 5.1 mg/dL (8.5-10.1)
[2022-02-01 12:15] LABS: BAND % (MANUAL) 13 % (0.0-5.0); LYMPHOCYTES % (MANUAL) 10 % (16-48); MONOCYTES % (MANUAL) 5 % (0-11.0); NEUTROPHILS % (MANUAL) 72 (42-76)
--- NOTE | 2022-02-01 12:45 | NUR ---
RN NOTES RECEIVED CALL FROM LABORATORY CALCIUM=5.1, NOTED PATIENT ON CALCIUM GLUCONATE. WILL CONTINUE TO MONITOR PATIENT.
--- NOTE | 2022-02-01 12:55 | NUR ---
RN NOTES TELEGRAPH MECHANIC NURSE PLACED PERIPHERAL LINE AT RIGHT HAND, PATENT AND INTACT. WILL CONTINUE TO MONITOR.
--- NOTE | 2022-02-01 13:32 | NUR ---
TEST BORE HELPER NOT SEEN BY RN SASHA DAVIS PATIENT CONDITION UPDATED , RT AT BEDSIDE ON BREATHING TX WILL. CONT TO MONITOR
--- NOTE | 2022-02-01 13:33 | NUR ---
director telemetry note ras hernandez at bedside notified that ca 2.1 albumin 1.3 with chest congestion and bp 152/69, ordered suction prn and stated will check medication for bp and hr , aware that patient has poor appetite
[2022-02-01] MEDS ORDERED: POTASSIUM PHOSPHATE MM 7.5 MMOL in IV NS 0.9% 100 ML IV SCH ×2 (15:00→21:00)
--- NOTE | 2022-02-01 15:30 | NUR ---
telephone operators supervisor note Millard cath is leaking patent refusing to place new Millard ,purewick placed, will monitor closely
[2022-02-01 16:00] VITALS: BP 141/62
--- NOTE | 2022-02-01 17:20 | NUR ---
television news photographer note dressing changed on mid abdomen s\p surgery, incision site intact ,no bleeding or drainage noted keep clean dry checked on bladder scanner for urinary retention no urine noted abdomen soft to touch ,no discomfort, able to urinate 200 ml using purewick ,will monitor
--- NOTE | 2022-02-01 17:35 | NUR ---
RN NOTES INFORMED MARCOS LEVEL GLASS FORMING MACHINE OPERATOR REGARDING BLOOD PRESSURE OF 141/62 HR=90, PATIENT S/P AMNIO DRIP LAST NIGHT, PER LEVEL GLASS FORMING MACHINE OPERATOR WILL RESUME HOME BP MEDICATIONS, WILL FOLLOW UP. WILL CONTINUE TO MONITOR PATIENT.
[2022-02-01] MEDS: LOSARTAN POTASSIUM 25 MG TABLET PO SCH (17:49)
[2022-02-01] MEDS: ATORVASTATIN 10 MG TABLET PO SCH (17:50)
[2022-02-01] MEDS: GABAPENTIN 100 MG CAPSULE PO SCH (17:51)
[2022-02-01] MEDS: METHOCARBAMOL (750MG) 750 MG TABLET PO SCH (18:37)
--- NOTE | 2022-02-01 18:38 | NUR ---
telemarketer supervisor note patient in bed awake alert ,on4l nc no sob noted at this time, with purewick noted yellow color urine, son at bedside, on tele monitor sr hr 85, .abdominal dressing keep clean dry and intact, cont on kcl iv infusion by rt upper arm mid line , rt hand hl intact and flushed well, bed in lowest and locked position , call light within reach, will cont to monitor
--- NOTE | 2022-02-01 18:51 | NUR ---
RN NOTES PATIENT'S SON REQUESTED METHOCARBAMOL TO TAKE IN A LATER TIME, WILL ENDORSE TO NIGHT NURSE.
[2022-02-01 20:00] VITALS: BP 140/63
--- NOTE | 2022-02-01 20:00 | NUR ---
EQUIPMENT WASHER NOTE PT IN BED AWAKE. A/O X 2, NO SOB, NO DISTRESS OR DISCOMFORT NOTED. DENIES PAIN. PT REMAIN CONGESTED. ON O2 4L VIA N/C O2 SAT 99%. ABD SURGICAL SITE DSG I/C/D. LAWRENCE DRAINAGE I/P DRAINING GREENISH/YELLOWISH COLOR FLUIDS PT IS GETTING POTASSIUM CHLORIDE 10 MEQ AT 50 ML/HR GLADIS MIDLINE, NO SS OF INFILTRATION NOTED. ALSO STARTED ON MAG IVF ORDERED. LUNGS SOUNDS WITH CRACKLES. ALL NEEDS ATTENDED. KEPT HER DRY AND CLEAN. REPOSITION HER FOR COMFORT AND SKIN MANAGEMENT. VSS. CONTINUE TO MONITOR HER. Addendum: 02/02/22 at 0007 by SANCHEZ GRANADOS RN ON TELE SR HR 68
[2022-02-01] MEDS: Magnesium 1GM/D5W 100ML PREMIX 100 ML IV SCH ×3 (20:21→22:24)
[2022-02-01] MEDS: METOPROLOL TARTRATE 25 MG TABLET PO SCH (21:15)
[2022-02-02] VITALS: BP 148/71
[2022-02-02] MEDS: IPRATROPIUM NEB FS 0.5 MG/2.5 ML AMPUL.NEB NEB SCH ×4 (00:40→19:41)
[2022-02-02] MEDS: ALBUTEROL HALF STRENGTH 1.25 MG/3 ML VIAL.NEB NEB SCH ×4 (00:40→19:41)
[2022-02-02] MEDS: PIPERACILLIN /TAZOBACTAM 2.25 G in IV D5W 50 ML IV SCH ×4 (00:44→17:46)
[2022-02-02 04:00] VITALS: BP 138/83
[2022-02-02] MEDS: HYDROCORTISONE SOD SUCCINATE 100 MG/2 ML VIAL IV SCH ×2 (05:19→13:02)
[2022-02-02 07:20] LABS: ALANINE AMINOTRANSFERASE 31 U/L (12-78); ALKALINE PHOSPHATASE 250 U/L (46-116); ASPARTATE AMINOTRANSFERASE 42 U/L (15-37); BILIRUBIN,TOTAL 0.5 mg/dL (0.2-1.0); CALCIUM, SERUM 6.3 mg/dL (8.5-10.1); CARBON DIOXIDE 30 mmol/L (21-32); CHLORIDE 104 mmol/L (98-107); CREATININE 0.8 mg/dL (0.6-1.3); GLUCOSE 207 mg/dL (74-106); MAGNESIUM 2.7 mg/dL (1.8-2.4); PHOSPHORUS 2.5 mg/dL (2.5-4.9); POTASSIUM 4.3 mmol/L (3.5-5.1); SODIUM SERUM 138 mmol/L (136-145); UREA NITROGEN, BLOOD 23 mg/dL (7-18)
[2022-02-02 07:23] LABS: ALBUMIN 1.3 g/dL (3.4-5.0)
--- NOTE | 2022-02-02 07:25 | NUR ---
RN OPENING NOTE RECEIVED PATIENT IN BED AWAKE, ALERT AND ORIENTED X3. PATIENT HAS NO SIGNS OF PAIN OR DISCOMFORT. PATIENT REMAINS CONGESTION. PATIENT IS ON O2 4L NASAL CANNULA O2 SATURATION ABOVE 93%. PATIENT HAS ABDOMINAL SURGICAL SITE INCISION AND LAWRENCE DRAINAGE. LAWRENCE DRAIN GREENISH/YELLOWISH COLOR. PATIENT HAS RIGHT UPPER ARM MIDLINE. INTACT AND PATENT, FLUSHING WELL. PATIENT HAS PERWICK. ALL SAFETY MEASURES IN PLACE. CALL LIGHT WITHIN REACH. BED LOCKED AT LOWEST POSITION. SIDE RAILS UP X2.
[2022-02-02 08:00] VITALS: BP 158/70
[2022-02-02 08:03] LABS: HEMATOCRIT 26 % (33-45); HEMOGLOBIN 8.6 g/dL (11.5-14.8); LYMPHOCYTES # (AUTO) 0.2 K/uL (0.8-4.8); LYMPHOCYTES % (AUTO) 2.3 % (20.0-44.0); MEAN CORPUSCULAR HGB CONC 34 g/dl (31.0-36.0); MEAN CORPUSCULAR VOLUME 91 fL (82-100); MONOCYTES # (AUTO) 0.1 K/uL (0.1-1.30); MONOCYTES % (AUTO) 0.9 % (2.0-12.0); NEUTROPHILS # (AUTO) 9.4 K/uL (1.8-8.9); NEUTROPHILS % (AUTO) 96.8 % (43.0-81.0); PLATELET COUNT (AUTO) 103 K/uL (150-450); WHITE BLOOD COUNT (AUTO) 9.7 K/uL (4.3-11.0)
[2022-02-02] MEDS ORDERED: Medication Not On Formulary EA (Nebivolol Hcl (Bystolic) 5 MG) PO SCH (09:00)
--- NOTE | 2022-02-02 09:17 | NUR ---
rn note spoke with charli mcginnis if ok to give heparin.platelets are 103. said ok to give
[2022-02-02] MEDS: METOPROLOL TARTRATE 25 MG TABLET PO SCH ×2 (09:27→22:07)
[2022-02-02] MEDS: LOSARTAN POTASSIUM 25 MG TABLET PO SCH ×2 (09:27→17:47)
[2022-02-02] MEDS: CHOLECALCIFEROL 1,000 UNIT TABLET (VIT D3) PO SCH (09:28)
[2022-02-02] MEDS: AMLODIPINE BESYLATE 5 MG TABLET PO SCH (09:28)
[2022-02-02] MEDS: MULTIVITAMIN/LUTEIN/MINERALS 1 TAB PO SCH (09:28)
[2022-02-02] MEDS: GABAPENTIN 100 MG CAPSULE PO SCH ×4 (09:28→17:00)
[2022-02-02] MEDS: METHOCARBAMOL (750MG) 750 MG TABLET PO SCH ×2 (09:29→17:00)
[2022-02-02] MEDS: ERGOCALCIFEROL (VITAMIN D2) 8,000 UNIT/ML PO SCH (09:29)
[2022-02-02] MEDS: PANTOPRAZOLE 40 MG TABLET.DR PO SCH (09:30)
[2022-02-02] MEDS: HEPARIN SODIUM, PORCINE 5000 UNITS/1 ML VIAL SQ SCH ×2 (09:36→17:52)
--- NOTE | 2022-02-02 12:00 | NUR ---
DR. KAN SAW PATIENT AND ORDER POTASSIUM PHOSPHATE 30 MMLOES AND ORDERED HANK RADHA DRAINAGE TO BE SENT TO LAB. SPECIMEN COLLECTED AND SENT TO LAB.
[2022-02-02] MEDS ORDERED: FUROSEMIDE 20 MG/2 ML VIAL IV ONE (14:40)
[2022-02-02 16:00] VITALS: BP 138/69
[2022-02-02] MEDS ORDERED: HYDROCORTISONE SOD SUCCINATE 100 MG/2 ML VIAL IV SCH (17:00)
[2022-02-02] MEDS: ATORVASTATIN 10 MG TABLET PO SCH (17:46)
--- NOTE | 2022-02-02 18:00 | NUR ---
NOTIFIED THADDEUS LOVE AND MD MARTINEZ IF OKAY TO GIVE POTASSIUM PHOSPHATE DUE TO LOW ELECTROLYTES LEVEL. SAID OK TO GIVE.
[2022-02-02] MEDS: POTASSIUM PHOSPHATE MM 15 MMOL in IV NS 0.9% 250 ML IV SCH ×2 (18:23→22:06)
--- NOTE | 2022-02-02 19:30 | NUR ---
RECEIVED PATIENT AWAKE IN BED WITH FAMILY AT BEDSIDE, ALERT AND ORIENTED X3. PATIENT HAS NO SIGNS OF PAIN OR DISCOMFORT. PATIENT REMAINS CONGESTED. PATIENT IS ON OXYGEN AT 4L VIA NASAL CANNULA WITH AN O2 SATURATION OF 92% TO 93%. PATIENT HAS ABDOMINAL SURGICAL SITE INCISION AND LAWRENCE DRAIN. LAWRENCE DRAIN OUTPUT IS GREENISH/YELLOWISH COLOR. PATIENT HAS RIGHT UPPER ARM MIDLINE. INTACT AND PATENT, FLUSHING WELL AND IS ON SALINE LOCK. PATIENT HAS PUREWICK IN PLACE. ALL SAFETY MEASURES IN PLACE. HEAD OF BED ELEVATED, CALL LIGHT WITHIN REACH. BED LOCKED AT LOWEST POSITION. SIDE RAILS UP X2, CALL LIGHT WITHIN REACH, BED ALARM ON, WILL CONTINUE PLAN OF CARE.
[2022-02-02 20:00] VITALS: BP 133/69
--- NOTE | 2022-02-02 20:01 | NUR ---
RN CLOSING NOTE PATIENT AWAKE, ALERT AND ORIENTED X3. NO SIGNS OF PAIN OR DISCOMFORT. PATIENT IS ON2 NASAL CANNULA SATURATING AT ABOVE 92%. KEPT ABDOMINAL DRESSING CLEAN AND DRY. EMPTIED HANK RADHA DRAINAGE 10 ML GREENISH COLOR. IV INTACT AND PATENT. ALL NEEDS MET. FAMILY AT BEDSIDE . ALL SAFETY MEASURES IN PLACE. CALL LIGHT WITHIN REACH. BED LOCKED AT LOWEST POSITION. BED ALARM ON
[2022-02-02 21:33] LABS: BAND % (MANUAL) 14 % (0.0-5.0); LYMPHOCYTES % (MANUAL) 1 % (16-48); MONOCYTES % (MANUAL) 2 % (0-11.0); NEUTROPHILS % (MANUAL) 83 (42-76)
[2022-02-03] VITALS: BP 155/77
[2022-02-03] MEDS: PIPERACILLIN /TAZOBACTAM 2.25 G in IV D5W 50 ML IV SCH ×4 (00:42→18:01)
[2022-02-03] MEDS: IPRATROPIUM NEB FS 0.5 MG/2.5 ML AMPUL.NEB NEB SCH ×4 (01:58→20:16)
[2022-02-03] MEDS: ALBUTEROL HALF STRENGTH 1.25 MG/3 ML VIAL.NEB NEB SCH ×4 (01:58→20:16)
[2022-02-03 04:00] VITALS: BP 132/91
--- NOTE | 2022-02-03 07:28 | NUR ---
PATIENT ASLEEP IN BED, ALERT AND ORIENTED X3. PATIENT HAS NO SIGNS OF PAIN OR DISCOMFORT. PATIENT IS ON OXYGEN AT 2L VIA NASAL CANNULA WITH AN O2 SATURATION OF 96%. PATIENT HAS ABDOMINAL SURGICAL SITE INCISION AND LAWRENCE DRAIN. LAWRENCE DRAIN HAD 10 ML OUTPUT IS GREENISH/YELLOWISH COLOR. PATIENT HAS RIGHT UPPER ARM MIDLINE. INTACT AND PATENT, FLUSHING WELL AND IS ON SALINE LOCK. PATIENT HAS PUREWICK IN PLACE. ALL SAFETY MEASURES MAINTAINED. HEAD OF BED ELEVATED, CALL LIGHT WITHIN REACH. BED LOCKED AT LOWEST POSITION. SIDE RAILS UP X2, CALL LIGHT WITHIN REACH, BED ALARM ON, WILL ENDORSE TO NEXT NURSE ON DUTY FOR CONTINUITY OF CARE.
[2022-02-03 07:29] LABS: EOSINOPHILS % (AUTO) 0.1 % (0.0-6.0); HEMATOCRIT 30 % (33-45); HEMOGLOBIN 9.7 g/dL (11.5-14.8); LYMPHOCYTES # (AUTO) 0.3 K/uL (0.8-4.8); LYMPHOCYTES % (AUTO) 3.2 % (20.0-44.0); MEAN CORPUSCULAR HGB CONC 33 g/dl (31.0-36.0); MEAN CORPUSCULAR VOLUME 93 fL (82-100); MONOCYTES # (AUTO) 0.3 K/uL (0.1-1.30); MONOCYTES % (AUTO) 3.6 % (2.0-12.0); NEUTROPHILS # (AUTO) 8.3 K/uL (1.8-8.9); NEUTROPHILS % (AUTO) 93.1 % (43.0-81.0); PLATELET COUNT (AUTO) 108 K/uL (150-450); WHITE BLOOD COUNT (AUTO) 8.9 K/uL (4.3-11.0)
--- NOTE | 2022-02-03 07:57 | NUR ---
RN OPENING NOTE RECEIVED PATIENT IN BED AWAKE, ALERT AND ORIENTED X3. PATIENT HAS NO SIGNS OF PAIN OR DISCOMFORT. PATIENT IS ON O2 4L NASAL CANNULA O2 SATURATION ABOVE 93%. PATIENT HAS ABDOMINAL SURGICAL SITE INCISION AND LAWRENCE DRAINAGE.PATIENT HAS RIGHT UPPER ARM MIDLINE. INTACT AND PATENT, FLUSHING WELL. PATIENT HAS PERWICK. ALL SAFETY MEASURES IN PLACE. CALL LIGHT WITHIN REACH. BED LOCKED AT LOWEST POSITION. SIDE RAILS UP X2.
[2022-02-03 08:00] VITALS: BP 131/80
[2022-02-03 08:05] LABS: CALCIUM, SERUM 6.3 mg/dL (8.5-10.1); CREATININE 0.7 mg/dL (0.6-1.3); MAGNESIUM 1.9 mg/dL (1.8-2.4); PHOSPHORUS 4.1 mg/dL (2.5-4.9); POTASSIUM 3.5 mmol/L (3.5-5.1)
[2022-02-03] MEDS: METHOCARBAMOL (750MG) 750 MG TABLET PO SCH ×2 (09:00→17:00)
[2022-02-03] MEDS: GABAPENTIN 100 MG CAPSULE PO SCH ×3 (09:00→17:00)
--- NOTE | 2022-02-03 09:04 | NUR ---
PATIENT IS AWAKE AND ALERT TITRATE O2 3 L DUE SLIGHTLY LOW SAT BUT PATIENT HAND IS VERY COLD Addendum: 02/03/22 at 0906 by PEYTON SALGADO RT Amended: Links added.
[2022-02-03] MEDS: PANTOPRAZOLE 40 MG TABLET.DR PO SCH (11:05)
[2022-02-03] MEDS: HYDROCORTISONE SOD SUCCINATE 100 MG/2 ML VIAL IV SCH ×2 (11:05→18:00)
[2022-02-03] MEDS: METOPROLOL TARTRATE 25 MG TABLET PO SCH ×2 (11:06→21:02)
[2022-02-03] MEDS: AMLODIPINE BESYLATE 5 MG TABLET PO SCH (11:06)
[2022-02-03] MEDS: LOSARTAN POTASSIUM 25 MG TABLET PO SCH ×2 (11:06→18:11)
[2022-02-03] MEDS: ERGOCALCIFEROL (VITAMIN D2) 8,000 UNIT/ML PO SCH (11:07)
[2022-02-03] MEDS: CHOLECALCIFEROL 1,000 UNIT TABLET (VIT D3) PO SCH (11:07)
[2022-02-03] MEDS: MULTIVITAMIN/LUTEIN/MINERALS 1 TAB PO SCH (11:07)
[2022-02-03] MEDS: HEPARIN SODIUM, PORCINE 5000 UNITS/1 ML VIAL SQ SCH (11:08)
[2022-02-03 12:00] VITALS: BP 146/78
--- NOTE | 2022-02-03 12:40 | NUR ---
RN NOTE PATIENT COMPLAINING OF PAIN. REFUSES GABAPENTIN. NOTIFIED ACCOUNTS PAYABLE OR RECEIVABLE CLERK SUSAN IF TYLENOL CAN BE ORDERED. IVAN ORDERED 650 MG TYLENOL Q6 PRN.
[2022-02-03] MEDS: ACETAMINOPHEN 325 MG TABLET PO PRN (13:21)
[2022-02-03 16:00] VITALS: BP 139/73
[2022-02-03] MEDS: GLUCERNA SHAKE 237 ML CAN PO SCH (17:00)
[2022-02-03] MEDS: ATORVASTATIN 10 MG TABLET PO SCH (18:01)
[2022-02-03 20:00] VITALS: BP 170/76
--- NOTE | 2022-02-03 20:49 | NUR ---
RN CLOSING NOTE PATIENT IN BED AWAKE, ALERT AND ORIENTED X3. PATIENT HAS NO SIGNS OF PAIN OR DISCOMFORT. PATIENT IS ON O2 4L NASAL CANNULA O2 SATURATION ABOVE 93%. PATIENT HAS ABDOMINAL SURGICAL SITE INCISION AND LAWRENCE DRAINAGE.EMPTIED 5 ML HANK RADHA DRAINAGE. GREENISH/BROWNISH COLOR. PATIENT HAS RIGHT UPPER ARM MIDLINE. INTACT AND PATENT, FLUSHING WELL. PATIENT RIGHT HAND IV GAUGE CAME OFF. REMOVED IV. PATIENT HAS PERWICK. ALL NEEDS MET. KEPT CLEAN AND DRY.FAMILY AT BEDSIDE.ALL SAFETY MEASURES IN PLACE. CALL LIGHT WITHIN REACH. BED LOCKED AT LOWEST POSITION. SIDE RAILS UP X2.BED ALARM ON
--- NOTE | 2022-02-03 23:30 | NUR ---
NAUMKEAG OPERATOR OPENING NOTE PT RECEIVED IN BED, AWAKE, A&O X4, CALM, COOPERATIVE. PT IS ON 2L NC WITH O2SAT OF 100%; NO S/S OF RESP DISTRESS, NO SOB OR COUGH, NON-LABORED AND EQUAL BREATHING. PT ATTACHED TO EXTERNAL MONITOR, SR WIT HR OF 76. PT NOTED TO HAVE LAWRENCE DRAIN, INTACT AND PATENT, WITH DRAINAGE THAT IS BROWNISH-YELLOW IN COLOR. PUREWICK IN PLACE, DRAINING CLEAR AND DARK YELLOW URINE. GLADIS MIDLINE INTACT AND PATENT, FLUSHES EASILY WITH NO RESISTANCE. BED IN LOWEST POSITION, CALL LIGHT WITHIN REACH, SIDE RAILS UP X2. WILL CONTINUE TO MONITOR THROUGHOUT THE NIGHT.
[2022-02-04] VITALS: BP 162/70
[2022-02-04] MEDS: PIPERACILLIN /TAZOBACTAM 2.25 G in IV D5W 50 ML IV SCH ×2 (00:06→06:08)
[2022-02-04] MEDS: ALBUTEROL HALF STRENGTH 1.25 MG/3 ML VIAL.NEB NEB SCH ×4 (01:56→20:00)
[2022-02-04] MEDS: IPRATROPIUM NEB FS 0.5 MG/2.5 ML AMPUL.NEB NEB SCH ×4 (01:56→20:00)
[2022-02-04 04:00] VITALS: BP 134/63
--- NOTE | 2022-02-04 06:56 | NUR ---
COAL WASHER TENDER CLOSING NOTE PT REMAINS IN BED, AWAKE, A&O X4, CALM, COOPERATIVE. CONTINUES TO BE ON 2L NC WITH O2SAT RANGING FROM 95%- 100%; NO S/S OF RESP DISTRESS, NO SOB OR COUGH, NON-LABORED AND EQUAL BREATHING. PT ATTACHED TO EXTERNAL MONITOR, SR WIT HR RANGING FROM 68- 76. LAWRENCE DRAIN INTACT AND PATENT, DRAINING BROWNISH FLUIDS IN COLOR THAT IS THICK IN CONSISTENCY WITH OUTPUT OF 5 ML. PUREWICK REMAINS IN PLACE, DRAINING CLEAR AND DARK YELLOW URINE. GLADIS MIDLINE INTACT AND PATENT, FLUSHES EASILY WITH NO RESISTANCE. INCISION CLEANSED WITH BETADINE AND NEW ABD PADS APPLIED. BED IN LOWEST POSITION, CALL LIGHT WITHIN REACH, SIDE RAILS UP X2. ALL DUE MEDS ADMINISTERED DURING THE NIGHT. WILL ENDORSE TO DAYSHIFT NURSE TO CONTINUE CARE.
--- NOTE | 2022-02-04 07:20 | NUR ---
RN NOTE RECEIVED PATIENT IN BED RESTING ALERT ORIENTED X4 VERBALLY RESPONSIVE ON 2L OXYGEN VIA NASAL CANNULA,O2:98% IV SITE IS ON RIGHT UPPER ARM MIDLINE INTACT PATENT,INCONTINENT BOWEL/BLADDER,SAFETY MEASURE IMPLEMENT,BED IN LOW POSITON AND LOCKED,CALL LIGHT WITHIN REACH,CONTINUE TO MONITOR.
[2022-02-04] MEDS: PANTOPRAZOLE 40 MG TABLET.DR PO SCH (07:34)
[2022-02-04] MEDS: GLUCERNA SHAKE 237 ML CAN PO SCH ×3 (07:56→17:22)
[2022-02-04 08:00] VITALS: BP 145/75
[2022-02-04] MEDS: HYDROCORTISONE SOD SUCCINATE 100 MG/2 ML VIAL IV SCH ×2 (08:48→17:01)
[2022-02-04] MEDS: FUROSEMIDE 40 MG/4 ML VIAL IV SCH ×2 (08:48→12:26)
[2022-02-04] MEDS: POTASSIUM CHLORIDE 20 MEQ TAB.PRT.SR PO SCH ×3 (08:49→10:33)
[2022-02-04] MEDS: METOPROLOL TARTRATE 25 MG TABLET PO SCH ×2 (08:49→21:22)
[2022-02-04] MEDS: AMLODIPINE BESYLATE 5 MG TABLET PO SCH (08:49)
[2022-02-04] MEDS: LOSARTAN POTASSIUM 25 MG TABLET PO SCH ×2 (08:50→17:01)
[2022-02-04] MEDS: MULTIVITAMIN/LUTEIN/MINERALS 1 TAB PO SCH (08:50)
[2022-02-04] MEDS: GABAPENTIN 100 MG CAPSULE PO SCH ×3 (08:52→17:00)
[2022-02-04] MEDS: CHOLECALCIFEROL 1,000 UNIT TABLET (VIT D3) PO SCH (08:52)
[2022-02-04] MEDS: ERGOCALCIFEROL (VITAMIN D2) 8,000 UNIT/ML PO SCH (09:03)
[2022-02-04] MEDS: METHOCARBAMOL (750MG) 750 MG TABLET PO SCH ×2 (09:04→17:00)
[2022-02-04 09:16] LABS: CHOLESTEROL 96 mg/dL (<200); HDL CHOLESTEROL 44 mg/dL (40-60); LDL 37 mg/dL (0-99); TRIGLYCERIDES 154 mg/dL (30-150)
[2022-02-04] MEDS: MICAFUNGIN SODIUM 100 MG in IV NS 0.9% 100 ML IV SCH (10:50)
[2022-02-04 12:00] VITALS: BP 141/64
[2022-02-04 16:00] VITALS: BP 125/66
[2022-02-04] MEDS: ATORVASTATIN 10 MG TABLET PO SCH (17:05)
--- NOTE | 2022-02-04 19:22 | NUR ---
RN NOTE PATIENT REMAINS ALERT ORIENTED X4 VERBALLY RESPONSIVE NO SOB NOT ACUTE DISTRESS NOTED,ALL DUE MEDS GIVEN MD ORDERED KEPT CLEAN AND DRY ALL THE TIME,KEPT HEAD OF THE BED ELEVATED,ENDORSE NEXT COMING SHIFT FOR CONTINUATION OF CARE.
[2022-02-04 20:00] VITALS: BP 137/80
--- NOTE | 2022-02-04 20:00 | NUR ---
ms rn opening notes Received pts in bed a/o x4 on 2liters of nc sating 96% , no sob no distress noted v/s stable afebrile . due meds given as ordered .abdominal sx site with staple dressing clean and dry no bleeding noted still jamaica drain ,all needs attended too call light within reach .no c/o of pain at this time turned and repositioned , with right ua midline intact and patent ,son at bedside updated with pts condition .will continue to monitor pts.
[2022-02-05] MEDS: ALBUTEROL HALF STRENGTH 1.25 MG/3 ML VIAL.NEB NEB SCH ×4 (01:36→20:07)
[2022-02-05] MEDS: IPRATROPIUM NEB FS 0.5 MG/2.5 ML AMPUL.NEB NEB SCH ×4 (01:36→20:07)
[2022-02-05 04:00] VITALS: BP 135/67
--- NOTE | 2022-02-05 04:13 | NUR ---
RT PT RECVD AWAKE AND VERBAL, NO SOB OR RESPIRATORY DISTRESS NOTED THROUGHOUT SHIFT. NEB TX GIVEN AND PT MIESHA WELL. PT SON WAS AT BEDSIDE.
--- NOTE | 2022-02-05 06:45 | NUR ---
ms rn closing notes Pts remain in bed a/o x4 on 2liters of nc sating 96% , no sob no distress noted v/s stable afebrile . abdominal sx site with staple dressing clean and dry no bleeding noted still jamaica drain ,all needs attended too call light within reach .no c/o of pain at this time turned and repositioned , with right ua midline intact and patent .will endorse to rn day shift continue of care.
--- NOTE | 2022-02-05 07:30 | NUR ---
MS RN NOTE RECEIVED PATIENT IN BED, ASLEEP, RESPONDS TO NAME AND TOUCH, ALERT ORIENTED X4 VERBALLY, ON 2L OXYGEN VIA NASAL CANNULA,O2 SAT 98%, DENIES PAIN, IV SITE IS ON RIGHT UPPER ARM MIDLINE FLUSHES WELL, SITE CLEAR. 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 SURGICAL SITE CLEAR, DRAIN IN PLACE. SAFETY MEASURE IMPLEMENT,BED IN LOW POSITION AND LOCKED,CALL LIGHT WITHIN REACH,WILL CONTINUE TO MONITOR.
[2022-02-05] MEDS: GLUCERNA SHAKE 237 ML CAN PO SCH ×3 (07:47→18:06)
[2022-02-05] MEDS: PANTOPRAZOLE 40 MG TABLET.DR PO SCH (07:47)
[2022-02-05 08:00] VITALS: BP 131/68
[2022-02-05] MEDS: METHOCARBAMOL (750MG) 750 MG TABLET PO SCH ×2 (08:42→17:00)
[2022-02-05] MEDS: ERGOCALCIFEROL (VITAMIN D2) 8,000 UNIT/ML PO SCH (08:42)
[2022-02-05] MEDS: HYDROCORTISONE SOD SUCCINATE 100 MG/2 ML VIAL IV SCH ×2 (08:42→08:45)
[2022-02-05] MEDS: MULTIVITAMIN/LUTEIN/MINERALS 1 TAB PO SCH (08:42)
[2022-02-05] MEDS: GABAPENTIN 100 MG CAPSULE PO SCH ×3 (08:42→17:00)
[2022-02-05] MEDS: LOSARTAN POTASSIUM 25 MG TABLET PO SCH ×2 (08:43→18:06)
[2022-02-05] MEDS: METOPROLOL TARTRATE 25 MG TABLET PO SCH ×2 (08:43→20:38)
[2022-02-05] MEDS: CHOLECALCIFEROL 1,000 UNIT TABLET (VIT D3) PO SCH (08:43)
[2022-02-05] MEDS: AMLODIPINE BESYLATE 5 MG TABLET PO SCH (08:44)
[2022-02-05] MEDS: MICAFUNGIN SODIUM 100 MG in IV NS 0.9% 100 ML IV SCH (09:11)
--- NOTE | 2022-02-05 09:30 | NUR ---
RN NOTES DUE MEDS GIVEN
[2022-02-05 16:00] VITALS: BP 140/72
--- NOTE | 2022-02-05 18:38 | NUR ---
MS RN CLOSING NOTE PATIENT IN BED, RESTING, RESPONDS TO NAME AND TOUCH, ALERT ORIENTED X4 VERBALLY, SON AT BEDSIDE. ON 2L OXYGEN VIA NASAL CANNULA,O2 SAT 98%, DENIES PAIN, IV SITE IS ON RIGHT UPPER ARM MIDLINE FLUSHES WELL, SITE CLEAR. 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 SURGICAL SITE CLEAR, DRAIN IN PLACE. SAFETY MEASURE IMPLEMENT,BED IN LOW POSITION AND LOCKED,CALL LIGHT WITHIN REACH, ALL NEEDS MET, NO OTHER SIGNIFICANT CHANGE IN CONDITION. WILL CONTINUE TO MONITOR.
--- NOTE | 2022-02-05 19:50 | NUR ---
MS RN OPENING NOTE RECEIVED PT IN BED, AWAKE, A&O X4, CALM, COOPERATIVE. PT IS ON 2L NC WITH O2SAT OF 94%; NO SOB OR COUGH, NON-LABORED AND EQUAL BREATHING. DENIES PAIN AT THIS TIME, PT NOTED TO HAVE LAWRENCE DRAIN, INTACT AND PATENT, WITH DRAINAGE THAT IS BROWNISH-YELLOW IN COLOR. PUREWICK IN PLACE, DRAINING CLEAR AND DARK YELLOW URINE. GLADIS MIDLINE INTACT AND PATENT, FLUSHES EASILY WITH NO RESISTANCE. BED IN LOWEST POSITION, CALL LIGHT WITHIN REACH, SIDE RAILS UP X2. WILL CONTINUE TO MONITOR THROUGHOUT THE NIGHT.
[2022-02-05 20:00] VITALS: BP 136/68
[2022-02-06] MEDS: ALBUTEROL HALF STRENGTH 1.25 MG/3 ML VIAL.NEB NEB SCH ×4 (01:29→20:25)
[2022-02-06] MEDS: IPRATROPIUM NEB FS 0.5 MG/2.5 ML AMPUL.NEB NEB SCH ×4 (01:29→20:25)
[2022-02-06 04:00] VITALS: BP 129/62
--- NOTE | 2022-02-06 05:35 | NUR ---
RT PT RECVD AWAKE ON 2 LPM NC, NO SOB OR RESPIRATORY DISTRESS NOTED. NEB TX GIVEN AND MIESHA WELL WITH NO ADVERSE REACTION NOTED.
[2022-02-06 06:22] LABS: EOSINOPHILS % (AUTO) 0.1 % (0.0-6.0); HEMATOCRIT 31 % (33-45); HEMOGLOBIN 10.2 g/dL (11.5-14.8); LYMPHOCYTES # (AUTO) 0.3 K/uL (0.8-4.8); LYMPHOCYTES % (AUTO) 3.8 % (20.0-44.0); MEAN CORPUSCULAR HGB CONC 33 g/dl (31.0-36.0); MEAN CORPUSCULAR VOLUME 94 fL (82-100); MONOCYTES # (AUTO) 0.2 K/uL (0.1-1.30); NEUTROPHILS # (AUTO) 6.4 K/uL (1.8-8.9); NEUTROPHILS % (AUTO) 93.1 % (43.0-81.0); PLATELET COUNT (AUTO) 158 K/uL (150-450); WHITE BLOOD COUNT (AUTO) 6.9 K/uL (4.3-11.0)
--- NOTE | 2022-02-06 06:43 | NUR ---
MS RN CLOSING NOTE PT REMAINS IN BED, AWAKE, A&O X4, CALM, COOPERATIVE. PT IS ON 2L NC WITH O2SAT OF 95%; NO SOB OR COUGH, NON-LABORED AND EQUAL BREATHING. DENIES PAIN AT THIS TIME, PT NOTED TO HAVE LAWRENCE DRAIN WITH OUTPUT OF 5 CC , INTACT AND PATENT, WITH DRAINAGE THAT IS YELLOW IN COLOR. PUREWICK IN PLAC, WITH GLADIS MIDLINE INTACT AND PATENT, FLUSHES EASILY WITH NO RESISTANCE. ALL DUE MEDS GIVEN, KEPT DRY AND CLEAN, BED IN LOWEST POSITION, CALL LIGHT WITHIN REACH, SIDE RAILS UP X2. WILL ENDORSE TO AM SHIFT NURSE FOR CONTINUITY OF CARE.
[2022-02-06 06:52] LABS: ALANINE AMINOTRANSFERASE 122 U/L (12-78); ALKALINE PHOSPHATASE 233 U/L (46-116); ASPARTATE AMINOTRANSFERASE 63 U/L (15-37); BILIRUBIN,TOTAL 0.5 mg/dL (0.2-1.0); CALCIUM, SERUM 7.2 mg/dL (8.5-10.1); CARBON DIOXIDE 34 mmol/L (21-32); CHLORIDE 101 mmol/L (98-107); CREATININE 0.5 mg/dL (0.6-1.3); GLUCOSE 107 mg/dL (74-106); MAGNESIUM 1.7 mg/dL (1.8-2.4); PHOSPHORUS 2.3 mg/dL (2.5-4.9); SODIUM SERUM 141 mmol/L (136-145); TOTAL PROTEIN, SERUM 5.1 g/dL (6.4-8.2); UREA NITROGEN, BLOOD 16 mg/dL (7-18)
--- NOTE | 2022-02-06 07:30 | NUR ---
MS RN AM NOTE RECEIVED PATIENT IN BED, ASLEEP, RESPONDS TO NAME AND TOUCH, ALERT ORIENTED X4 VERBALLY, ON 2L OXYGEN VIA NASAL CANNULA,O2 SAT 95%, DENIES PAIN, IV SITE IS ON RIGHT UPPER ARM MIDLINE FLUSHES WELL, SITE CLEAR. 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 SURGICAL SITE CLEAR, DRAIN IN PLACE. SAFETY MEASURE IMPLEMENT,BED IN LOW POSITION AND LOCKED,CALL LIGHT WITHIN REACH,WILL CONTINUE TO MONITOR.
[2022-02-06 07:33] LABS: ALBUMIN 1.4 g/dL (3.4-5.0); POTASSIUM 2.5 mmol/L (3.5-5.1)
[2022-02-06] MEDS: GLUCERNA SHAKE 237 ML CAN PO SCH ×3 (07:43→16:53)
[2022-02-06] MEDS: PANTOPRAZOLE 40 MG TABLET.DR PO SCH (07:43)
[2022-02-06 08:00] VITALS: BP 131/76
[2022-02-06] MEDS: ERGOCALCIFEROL (VITAMIN D2) 8,000 UNIT/ML PO SCH (08:24)
[2022-02-06] MEDS: CHOLECALCIFEROL 1,000 UNIT TABLET (VIT D3) PO SCH (08:25)
[2022-02-06] MEDS: MULTIVITAMIN/LUTEIN/MINERALS 1 TAB PO SCH (08:25)
[2022-02-06] MEDS: AMLODIPINE BESYLATE 5 MG TABLET PO SCH (08:26)
[2022-02-06] MEDS: METOPROLOL TARTRATE 25 MG TABLET PO SCH ×2 (08:26→21:09)
[2022-02-06] MEDS: LOSARTAN POTASSIUM 25 MG TABLET PO SCH ×2 (08:26→16:53)
[2022-02-06] MEDS: METHOCARBAMOL (750MG) 750 MG TABLET PO SCH ×2 (08:27→16:53)
[2022-02-06] MEDS: HYDROCORTISONE SOD SUCCINATE 100 MG/2 ML VIAL IV SCH (08:27)
[2022-02-06] MEDS: GABAPENTIN 100 MG CAPSULE PO SCH ×3 (08:27→16:53)
[2022-02-06] MEDS ORDERED: POTASSIUM CHLORIDE 10 MEQ/50 ML PREMIXED IVPB FOR PERIPHERAL LINE IV SCH (09:00)
[2022-02-06] MEDS ORDERED: MAGNESIUM OXIDE 400 MG TABLET PO ONE (09:00)
[2022-02-06] MEDS ORDERED: K PHOS NEUTRAL 250 MG TABLET PO ONE (09:00)
[2022-02-06] MEDS ORDERED: Magnesium 1GM/D5W 100ML PREMIX 100 ML IV SCH (09:00)
[2022-02-06] MEDS: POTASSIUM CHLORIDE 20 MEQ TAB.PRT.SR PO SCH ×5 (09:17→13:28)
[2022-02-06] MEDS: MICAFUNGIN SODIUM 100 MG in IV NS 0.9% 100 ML IV SCH (09:18)
--- NOTE | 2022-02-06 09:30 | NUR ---
RN NOTES DUE MEDS GIVEN
[2022-02-06] MEDS: methylPREDNISolone SOD SUCC 40 MG/ML VIAL IV SCH ×2 (13:30→21:09)
[2022-02-06 16:00] VITALS: BP 149/76
[2022-02-06 16:17] LABS: CALCIUM, SERUM 7.3 mg/dL (8.5-10.1); CREATININE 0.8 mg/dL (0.6-1.3); POTASSIUM 4.3 mmol/L (3.5-5.1)
--- NOTE | 2022-02-06 19:25 | NUR ---
RN OPENING NOTE PATIENT IN BED, AWAKE. PATIENT IS ABLE TO MAKE NEEDS KNOWN, A/O X 3. SON AT BEDSIDE NOW. PATIENT IS CURRENTLY ON 2 LPM O2 SUPPLEMENTATION VIA NC, SATTING 92%. PATIENT NOTED TO BE COUGHING. WILL SUCTION PATIENT NEEDED. PATIENT IS DOES NTO REPORT ANY PAIN AT THIS TIME. GLADIS MIDLINE PATENT AND INTACT, FLUSHING WELL. NOT IN ANY APPARENT DISTRESS. SAFETY MEASURES IN PLACE: BED LOCKED AND IN LOWEST POSITION, CALL LIGHT WITHIN REACH, SIDE RAILS UP. WILL MONITOR PATIENT CLOSELY.
[2022-02-06 20:00] VITALS: BP 148/63
--- NOTE | 2022-02-06 20:45 | NUR ---
RN OPENING NOTE PATIENT'S O2 INCREASED TO 4 LPM VIA NC D/T PATIENT DESATTING. NOW AT 95-98%. PATIENT SUCTIONED VIA NASOPHARYNGEAL SUCTIONING BY RT.
--- NOTE | 2022-02-06 22:30 | NUR ---
RN NOTE 02 TITRATED DOWN TO 3 LPM, 99% AT THIS TIME
[2022-02-07] MEDS: IPRATROPIUM NEB FS 0.5 MG/2.5 ML AMPUL.NEB NEB SCH ×6 (00:01→20:13)
[2022-02-07] MEDS: ALBUTEROL HALF STRENGTH 1.25 MG/3 ML VIAL.NEB NEB SCH ×6 (00:02→20:13)
[2022-02-07 04:00] VITALS: BP 140/63
[2022-02-07] MEDS: methylPREDNISolone SOD SUCC 40 MG/ML VIAL IV SCH (04:15)
[2022-02-07 06:42] LABS: HEMATOCRIT 27 % (33-45); HEMOGLOBIN 8.7 g/dL (11.5-14.8); LYMPHOCYTES # (AUTO) 0.2 K/uL (0.8-4.8); MEAN CORPUSCULAR HGB CONC 33 g/dl (31.0-36.0); MEAN CORPUSCULAR VOLUME 93 fL (82-100); MONOCYTES # (AUTO) 0.3 K/uL (0.1-1.30); MONOCYTES % (AUTO) 4.9 % (2.0-12.0); NEUTROPHILS # (AUTO) 5.3 K/uL (1.8-8.9); NEUTROPHILS % (AUTO) 92.1 % (43.0-81.0); PLATELET COUNT (AUTO) 225 K/uL (150-450); RED BLOOD CELL COUNT(AUTO) 2.85 MIL/uL (4.0-5.2); WHITE BLOOD COUNT (AUTO) 5.8 K/uL (4.3-11.0)
--- NOTE | 2022-02-07 06:54 | NUR ---
RN CLOSING NOTE PATIENT IN BED, EYES CLOSED, EASILY AWAKENED. PATIENT IS ABLE TO MAKE NEEDS KNOWN, A/O X 3. PATIENT IS CURRENTLY ON 3 LPM O2 SUPPLEMENTATION VIA NC, SATTING 99%. PATIENT NASOPHARYNGEAL SUCTIONED FOR THE CONGESTION. PATIENT DID NOT VERBALIZE ANY PAIN DURING THE SHIFT. GLADIS MIDLINE PATENT AND INTACT, FLUSHING WELL. LAWRENCE DRAIN DRAINING FLOYD DRAINAGE, 10 ML OUTPUT. ABD DRESSING CLEAN DRY AND INTACT. NOT IN ANY APPARENT DISTRESS. SAFETY MEASURES IN PLACE: BED LOCKED AND IN LOWEST POSITION, CALL LIGHT WITHIN REACH, SIDE RAILS UP. ALL NEEDS MET AND ATTENDED. ALL ORDERS CARRIED OUT. WILL ENDORSE TO DAY SHIFT NURSE FOR SUELLEN.
[2022-02-07 07:03] LABS: BILIRUBIN,TOTAL 0.5 mg/dL (0.2-1.0); CALCIUM, SERUM 7.4 mg/dL (8.5-10.1); CREATININE 0.7 mg/dL (0.6-1.3); MAGNESIUM 1.8 mg/dL (1.8-2.4); PHOSPHORUS 2.8 mg/dL (2.5-4.9); POTASSIUM 4.6 mmol/L (3.5-5.1); TOTAL PROTEIN, SERUM 5.5 g/dL (6.4-8.2)
[2022-02-07 07:07] LABS: ALBUMIN 1.3 g/dL (3.4-5.0)
[2022-02-07 08:00] VITALS: BP 150/67
[2022-02-07] MEDS: PANTOPRAZOLE 40 MG TABLET.DR PO SCH (08:05)
[2022-02-07] MEDS: GLUCERNA SHAKE 237 ML CAN PO SCH ×3 (08:05→17:53)
[2022-02-07] MEDS: GABAPENTIN 100 MG CAPSULE PO SCH ×4 (08:38→17:00)
[2022-02-07] MEDS: MULTIVITAMIN/LUTEIN/MINERALS 1 TAB PO SCH (08:38)
[2022-02-07] MEDS: METHOCARBAMOL (750MG) 750 MG TABLET PO SCH ×2 (08:39→17:00)
[2022-02-07] MEDS: METOPROLOL TARTRATE 25 MG TABLET PO SCH ×2 (08:39→20:46)
[2022-02-07] MEDS: LOSARTAN POTASSIUM 25 MG TABLET PO SCH ×2 (08:39→17:52)
[2022-02-07] MEDS: CHOLECALCIFEROL 1,000 UNIT TABLET (VIT D3) PO SCH (08:39)
[2022-02-07] MEDS: ERGOCALCIFEROL (VITAMIN D2) 8,000 UNIT/ML PO SCH (08:40)
[2022-02-07] MEDS: AMLODIPINE BESYLATE 5 MG TABLET PO SCH (08:40)
--- NOTE | 2022-02-07 09:00 | NUR ---
RN NOTE PATIENT REFUSED THE GABAPENTIN. AND THE DAUGHTER SAID HOLD GABAPENTIN AND METHACARBOMOL; SHE STATED THAT THAT LOW MEDICATION GIVEN IS BETTER.
[2022-02-07] MEDS: MICAFUNGIN SODIUM 100 MG in IV NS 0.9% 100 ML IV SCH (10:16)
[2022-02-07 12:00] VITALS: BP 149/63
[2022-02-07] MEDS ORDERED: methylPREDNISolone SOD SUCC 40 MG/ML VIAL IV SCH (13:00)
[2022-02-07 16:00] VITALS: BP 152/83
--- NOTE | 2022-02-07 18:21 | NUR ---
RN CLOSING NOTE PATIENT IN BED, DAUGHTER NEXT TO HER. PATIENT IS ABLE TO MAKE NEEDS KNOWN, A/O X 3. PATIENT IS CURRENTLY ON 3 L O2 NC, SATTING 95%. PATIENT NASOPHARYNGEAL SUCTIONED FOR THE CONGESTION. PATIENT DID NOT VERBALIZE ANY PAIN DURING THE SHIFT. GLADIS MIDLINE PATENT AND INTACT, FLUSHING WELL. LAWRENCE DRAIN DRAINING FLOYD DRAINAGE, 130 ML OUTPUT. ABD DRESSING CHANGED 2 TIMES DRY AND INTACT. NOT IN ANY APPARENT DISTRESS. SAFETY MEASURES IN PLACE: BED LOCKED AND IN LOWEST POSITION, CALL LIGHT WITHIN REACH, SIDE RAILS UP. ALL NEEDS MET AND ATTENDED. PATIENT REFUSED GABAPENTIN AND METHACARBAMOL, SHE STATED MAKES HER DIZZY. WILL ENDORSE TO THE FOOD QUALITY TECHNICIAN NURSE FOR SUELLEN.
--- NOTE | 2022-02-07 19:45 | NUR ---
RN OPENING NOTE PATIENT AWAKE IN BED W/ SON AT BEDSIDE. A/OX4. NO S/S OF DISTRESS, BREATHING WITHOUT DIFFICULTY ON 3L NC. GLADIS MIDLINE #18 SL INTACT AND PATENT. SAFETY MEASURES IN PLACE: BED LOCKED IN PLACE AND AT LOWEST POSITION, RAILS UP X2, CALL STEWART WITHIN REACH. WILL CONTINUE TO MONITOR PATIENT.
[2022-02-07 20:00] VITALS: BP 152/83
[2022-02-07 22:27] LABS: BAND % (MANUAL) 18 % (0.0-5.0); LYMPHOCYTES % (MANUAL) 4 % (16-48); METAMYELOCYTES % 2 % (0-0); MONOCYTES % (MANUAL) 4 % (0-11.0); NEUTROPHILS % (MANUAL) 72 (42-76)
[2022-02-08] MEDS: ALBUTEROL HALF STRENGTH 1.25 MG/3 ML VIAL.NEB NEB SCH ×7 (01:49→22:59)
[2022-02-08] MEDS: IPRATROPIUM NEB FS 0.5 MG/2.5 ML AMPUL.NEB NEB SCH ×7 (01:49→22:59)
--- NOTE | 2022-02-08 02:20 | NUR ---
RN NOTE PATIENT HANDED TO PHOEBE SOLIS, PER CHARGE NURSESANCHEZ.
[2022-02-08 04:00] VITALS: BP 140/70
--- NOTE | 2022-02-08 07:30 | NUR ---
RN OPENING NOTE PATIENT IS IN BED AWAKE, ALERT AND ORIENTED X 4. WITH O2 VIA NASAL CANNULA AT 3L/MIN. WITH RIGHT UPPER ARM MIDLINE INTACT AND PATENT. BREATHING UNLABORED AND NOT IN ANY FORM OF DISTRESS. BED IS LOCKED IN LOWEST POSITION, 3 SIDE RAILS UP, CALL LIGHT WITHIN REACH. WILL CONTINUE TO MONITOR THROUGHOUT SHIFT.
[2022-02-08 07:34] LABS: CALCIUM, SERUM 7.8 mg/dL (8.5-10.1); CARBON DIOXIDE 34 mmol/L (21-32); CHLORIDE 105 mmol/L (98-107); CREATININE 0.5 mg/dL (0.6-1.3); GLUCOSE 151 mg/dL (74-106); MAGNESIUM 1.7 mg/dL (1.8-2.4); PHOSPHORUS 2.5 mg/dL (2.5-4.9); POTASSIUM 3.7 mmol/L (3.5-5.1); SODIUM SERUM 143 mmol/L (136-145); UREA NITROGEN, BLOOD 17 mg/dL (7-18)
--- NOTE | 2022-02-08 07:36 | NUR ---
PATIENT ASLEEP IN BED BUT EASILY AWAKENS.. A/OX4. NO S/S OF DISTRESS, BREATHING WITHOUT DIFFICULTY ON 3L NC. GLADIS MIDLINE #18 SL INTACT AND PATENT. PUREWICK IN PLACE. SAFETY MEASURES MAINTAINED: BED LOCKED IN PLACE AND AT LOWEST POSITION, RAILS UP X2, CALL STEWART WITHIN REACH. WILL ENDORSE TO NEXT NURSE ON DUTY FOR CONTINUITY OF CARE.
[2022-02-08 07:52] LABS: EOSINOPHILS % (AUTO) 0.1 % (0.0-6.0); HEMATOCRIT 27 % (33-45); HEMOGLOBIN 8.7 g/dL (11.5-14.8); LYMPHOCYTES # (AUTO) 0.2 K/uL (0.8-4.8); LYMPHOCYTES % (AUTO) 4.4 % (20.0-44.0); MEAN CORPUSCULAR HGB CONC 33 g/dl (31.0-36.0); MEAN CORPUSCULAR VOLUME 93 fL (82-100); MONOCYTES # (AUTO) 0.2 K/uL (0.1-1.30); MONOCYTES % (AUTO) 3.7 % (2.0-12.0); NEUTROPHILS # (AUTO) 3.9 K/uL (1.8-8.9); NEUTROPHILS % (AUTO) 91.8 % (43.0-81.0); PLATELET COUNT (AUTO) 210 K/uL (150-450); RED BLOOD CELL COUNT(AUTO) 2.86 MIL/uL (4.0-5.2); WHITE BLOOD COUNT (AUTO) 4.2 K/uL (4.3-11.0)
[2022-02-08] MEDS: Magnesium 1GM/D5W 100ML PREMIX 100 ML IV SCH ×2 (08:37→09:52)
[2022-02-08] MEDS: METHOCARBAMOL (750MG) 750 MG TABLET PO SCH (08:38)
[2022-02-08] MEDS: AMLODIPINE BESYLATE 5 MG TABLET PO SCH (08:38)
[2022-02-08] MEDS: LOSARTAN POTASSIUM 25 MG TABLET PO SCH ×2 (08:39→18:35)
[2022-02-08] MEDS: CHOLECALCIFEROL 1,000 UNIT TABLET (VIT D3) PO SCH (08:39)
[2022-02-08] MEDS: PANTOPRAZOLE 40 MG TABLET.DR PO SCH (08:39)
[2022-02-08] MEDS: MULTIVITAMIN/LUTEIN/MINERALS 1 TAB PO SCH (08:39)
[2022-02-08] MEDS: GABAPENTIN 100 MG CAPSULE PO SCH ×2 (08:40→12:19)
[2022-02-08] MEDS: METOPROLOL TARTRATE 25 MG TABLET PO SCH ×2 (08:40→20:20)
[2022-02-08] MEDS: methylPREDNISolone SOD SUCC 40 MG/ML VIAL IV SCH (08:40)
[2022-02-08] MEDS: GLUCERNA SHAKE 237 ML CAN PO SCH ×3 (08:41→18:31)
[2022-02-08] MEDS: ERGOCALCIFEROL (VITAMIN D2) 8,000 UNIT/ML PO SCH (08:42)
[2022-02-08] MEDS: MICAFUNGIN SODIUM 100 MG in IV NS 0.9% 100 ML IV SCH (11:07)
[2022-02-08 12:00] VITALS: BP 130/70
[2022-02-08 12:08] LABS: BAND % (MANUAL) 25 % (0.0-5.0); LYMPHOCYTES % (MANUAL) 11 % (16-48); MONOCYTES % (MANUAL) 2 % (0-11.0); NEUTROPHILS % (MANUAL) 62 (42-76)
[2022-02-08] MEDS ORDERED: NEOMY SULF/BACITRAC ZN/POLY 15 GM TUBE TP PRN (17:00)
--- NOTE | 2022-02-08 17:00 | NUR ---
RN NOTE PATIENT'S O2 SAT NOED TO BE AT 85-87%. GALO PUBLIC IMPROVEMENT INSPECTOR INFORMED. SUCTIONING DONE BY RT. ABG DONE STAT ORDERED. WILL CONTINUE TO MONITOR.
[2022-02-08 18:15] LABS: ABG BASE EXCESS 7.4 mmol/L; ABG OXYGEN SATURATION 92.4 % (92.0-98.5); ABG PCO2 46.1 mmHg (35.0-45.0); AaDO2 169.2 mmHg; MetHb 0.2 % (0.0-1.5); O2Hb 92.2 % (94.0-97.0); SITE, ABG Right Radial; VENT MODE, BG 5L NC
--- NOTE | 2022-02-08 19:06 | NUR ---
RN CLOSING NOTE PATIENT'S O2 SAT NOW AT 93-95% AFTER SUCTIONING. TOLERATES O2 VIA NASAL CANNULA AT 5L/MIN. ALERT ORIENTED X 4. BREATHING UNLABORED AND NOT IN ANY FORM OF DISTRESS. IV LINE INTACT AND PATENT. LAWRENCE DRAIN INTACT AND DRAINING TO A YELLOW CLOUDY FLUID. ALL HOSPITAL SAFETY PRECAUTIONS IN PLACE. WILL ENDORSE TO LABOR ARBITRATOR NURSE.
--- NOTE | 2022-02-08 19:30 | NUR ---
PT RECEIVED IN BED AWAKE WITH FAMILY AT BEDSIDE, A/O X4. WITH O2 VIA NASAL CANNULA AT 5L/MIN. WITH RIGHT UPPER ARM MIDLINE INTACT AND PATENT. NOT IN ANY FORM OF DISTRESS. SAFETY MEASURES IN PLACE, BED IS LOCKED IN LOWEST POSITION, HEAD OF BED SLIGHTLY ELEVATED, SIDE RAILS UP X3, CALL LIGHT WITHIN REACH. WILL CONTINUE PLAN OF CARE.
[2022-02-08 20:00] VITALS: BP 170/79
[2022-02-08] MEDS ORDERED: LEVALBUTEROL HCL NEB 1.25 MG/0.5 ML VIAL.NEB NEB SCH (20:00)
[2022-02-08] MEDS ORDERED: FUROSEMIDE 20 MG/2 ML VIAL IV SCH (20:30)
--- NOTE | 2022-02-08 20:30 | NUR ---
PT SEEN BY ATTENDING. WILL CARRY OUT NEW ORDERS.
[2022-02-08] MEDS ORDERED: MEROPENEM 1 G VIAL IV ONE (22:20)
--- NOTE | 2022-02-08 22:49 | NUR ---
RN NOTES RECEIVED PATIENT FROM ROSA MARIA, A/0 X 3, VERBALLY RESPONSIVE, ON NRB @ 15 LPM, NO SOB NOTED. AFEBRILE. NO S/S OF DISTRESS NOTED. WITH GLADIS MID LINE, PATENT INTACT, NO S/S OF INFILTRATION NOTED. RUNNING WITH NS @ TKO AND WITH ONGOING ATB, MERREM 1G @ 200 ML/HR, TOLERATING WELL. PATIENT NOTED WITH ABDOMINAL INCISION WITH DRESSING INTACT, CONNECTED TO LAWRENCE DRAIN WITH 60 ML OF YELLOWISH DRAINAGE. V/S TAKEN AND RECORDED. OBTAINED NEW ORDER TO INSERT KELLY CATHETER NOTED AND CARRIED OUT. FAMILY AGREED FOR KELLY CATHETER INSERTION. ALL SAFETY PRECAUTION PROVIDED. FAMILY MEMBER AT BEDSIDE. CALL LIGHT WITH IN REACH.
[2022-02-08] MEDS ORDERED: MEROPENEM 1 G in IV NS 0.9% 100 ML IV SCH (23:00)
[2022-02-08] MEDS: ACETYLCYSTEINE 10% SOLN 400 MG/4 ML VIAL NEB SCH (23:00)
--- NOTE | 2022-02-08 23:00 | NUR ---
REPORT GIVEN TO CHEMISTRY LAB INSTRUCTOR. PT TRANSFERRED TO ICU VIA HOSPITAL BED WITH OXYGEN AND MONITOR ORDERED. PT TOLERATED PROCEDURE WELL.
[2022-02-09] VITALS (40 sets, daily range): BP systolic 70–148; BP diastolic 33–83
[2022-02-09] MEDS: IV NS 0.9% 250 ML IV PRN (02:18)
[2022-02-09 03:47] LABS: HEMATOCRIT 26 % (33-45); HEMOGLOBIN 8.6 g/dL (11.5-14.8); LYMPHOCYTES # (AUTO) 0.2 K/uL (0.8-4.8); LYMPHOCYTES % (AUTO) 3.7 % (20.0-44.0); MEAN CORPUSCULAR HGB CONC 33 g/dl (31.0-36.0); MEAN CORPUSCULAR VOLUME 93 fL (82-100); MONOCYTES # (AUTO) 0.1 K/uL (0.1-1.30); MONOCYTES % (AUTO) 1.2 % (2.0-12.0); NEUTROPHILS % (AUTO) 95.1 % (43.0-81.0); PLATELET COUNT (AUTO) 203 K/uL (150-450); RED BLOOD CELL COUNT(AUTO) 2.84 MIL/uL (4.0-5.2); WHITE BLOOD COUNT (AUTO) 4.2 K/uL (4.3-11.0)
[2022-02-09 03:59] LABS: CALCIUM, SERUM 7.6 mg/dL (8.5-10.1); CREATININE 0.6 mg/dL (0.6-1.3); POTASSIUM 3.4 mmol/L (3.5-5.1)
[2022-02-09] MEDS: IPRATROPIUM NEB FS 0.5 MG/2.5 ML AMPUL.NEB NEB SCH ×6 (04:10→23:46)
[2022-02-09] MEDS: ALBUTEROL HALF STRENGTH 1.25 MG/3 ML VIAL.NEB NEB SCH ×6 (04:10→23:46)
[2022-02-09 04:20] LABS: BAND % (MANUAL) 21 % (0.0-5.0); BASOPHILS % (MANUAL) 0 % (0.0-2.0); EOSINOPHILS % (MANUAL) 0 % (0-4); LYMPHOCYTES % (MANUAL) 5 % (16-48); MONOCYTES % (MANUAL) 3 % (0-11.0); NEUTROPHILS % (MANUAL) 71 (42-76)
--- NOTE | 2022-02-09 04:32 | NUR ---
RT NOTE NASOTRACHEAL SUCTION DONE, MODERATE THIN YELLOW SECRETIONS NOTED. RN FRANCES AWARE.
--- NOTE | 2022-02-09 07:18 | NUR ---
RN NOTES PATIENT ASLEEP, BUT EASY TO AROUSE, ON NRB @ 15LPM, SATING AT 95%. RESPIRATORY EVEN AND UNLABORED, NO SOB NOTED. REMAIN AFEBRILE, NO S/S OF DISTRESS NOTED. REPOSITION PATIENT EVERY 2 HRS. ALL DUE MEDS GIVEN. ALL SAFETY PRECAUTION PROVIDED, BED IN LOWEST POSITION, LOCKED. BED ALARM ARMED. CALL LIGHT WITH IN REACH. REPORT GIVEN TO MORNING SHIFT NURSE.
[2022-02-09] MEDS: ACETYLCYSTEINE 10% SOLN 400 MG/4 ML VIAL NEB SCH ×3 (07:35→23:46)
[2022-02-09] MEDS: GLUCERNA SHAKE 237 ML CAN PO SCH ×3 (08:00→16:14)
--- NOTE | 2022-02-09 08:00 | NUR ---
RN NOTES RECEIVED PATIENT IN THE BED NON -REBREATHER MASK 15L. PATIENT HAS NO ACUTE RESPIRATORY DISTRESS. BEDSIDE MONITOR SHOWS ST-114. ADMINISTERED SCHEDULED MEDICATION. INFUSING TKO @10 ML/HR. KELLY DRAINING VIA GRAVITY, ASSIST TURN AND REPOSTION Q 2 HR. WILL FOLLOW UP.
[2022-02-09 08:15] LABS: ABG BASE EXCESS 9.6 mmol/L; ABG OXYGEN SATURATION 93.9 % (92.0-98.5); ABG PCO2 61.4 mmHg (35.0-45.0); ABG PH 7.388 (7.350-7.450); ABG PO2 75.3 mmHg (75.0-100.0); AaDO2 576.3 mmHg; COHb 0.3 % (0.5-1.5); MetHb 0.3 % (0.0-1.5); O2Hb 93.3 % (94.0-97.0); SITE, ABG Right Radial; VENT MODE, BG NRB MASK
[2022-02-09] MEDS: CHOLECALCIFEROL 1,000 UNIT TABLET (VIT D3) PO SCH (08:48)
[2022-02-09] MEDS: LOSARTAN POTASSIUM 25 MG TABLET PO SCH ×2 (08:48→16:13)
[2022-02-09] MEDS: PANTOPRAZOLE 40 MG TABLET.DR PO SCH (08:48)
[2022-02-09] MEDS: MULTIVITAMIN/LUTEIN/MINERALS 1 TAB PO SCH (08:49)
[2022-02-09] MEDS: AMLODIPINE BESYLATE 5 MG TABLET PO SCH (08:50)
[2022-02-09] MEDS: METOPROLOL TARTRATE 25 MG TABLET PO SCH ×2 (08:50→21:24)
[2022-02-09] MEDS: methylPREDNISolone SOD SUCC 40 MG/ML VIAL IV SCH (08:51)
[2022-02-09] MEDS: ERGOCALCIFEROL (VITAMIN D2) 8,000 UNIT/ML PO SCH (09:06)
[2022-02-09] MEDS: MEROPENEM 1 G in IV NS 0.9% 100 ML IV SCH ×2 (09:07→21:32)
--- NOTE | 2022-02-09 09:10 | NUR ---
RN NOTES AFTER ANG RESULT PATIENT ON CPAP WITH SETTING OF 15/[address] AGEE ORDER . SCHEDULED MEDICATION ADMINISTERED, PATIENT NPO EXCEPT MEDS. DAUGHTER NEXT TO THE BED.
[2022-02-09] MEDS: POTASSIUM CL. PREMIX PERIPHER. 50 ML IV SCH ×2 (09:25→10:25)
[2022-02-09] MEDS: MICAFUNGIN SODIUM 100 MG in IV NS 0.9% 100 ML IV SCH (10:25)
--- NOTE | 2022-02-09 13:27 | NUR ---
RN NOTES SEEN PATIENT SPEACH THERAPIST UNABLE TO EVALUATE PATIENT BECAUSE OF DECREASING O2 SATURATION. WILL FOLLOW UP.
[2022-02-09] MEDS: VANCOMYCIN HCL 0.75 GM in IV D5W 250 ML IV SCH (13:30)
--- NOTE | 2022-02-09 18:30 | NUR ---
rn notes patient on BIPAP 15:5, ac-15, FIO2-80%. Bedside monitor shows SR 98. Patient refused pain. PM care done, assist turn and reposition q 2 hr. patient has poor urine output 225 ml, small BP x1. Seen patient via community service officer Dr Vale no new order at this time. Per md he will look and due orders as needed. Endorsed oncoming nurse follow lj.
--- NOTE | 2022-02-09 20:00 | NUR ---
Received patient resting in bed in no acute distress on BIPAP 12/09,RATE 15,FIO2 80% saturation 96%-99%.A/OX3.SR.Afebrile.On 01/26 S/P E.Lap and placement of drain. Abdomen soft.BS +.Abdominal dressing C/D/I LAWRENCE drain patent and draining.Denies pain. FC to gravity.Turned and repositioned to comfort.Call light at bedside instructed to call for assistance.
--- NOTE | 2022-02-09 23:45 | NUR ---
STAT EKG DONE.
[2022-02-09] MEDS ORDERED: AMIODARONE 150 MG/3 ML VIAL IV ONE ×2 (23:51→23:52)
[2022-02-09] MEDS ORDERED: PHENYLEPHRINE 10 MG/ML VIAL ONE (23:53)
--- NOTE | 2022-02-09 23:58 | NUR ---
Patient hemodynamically unstable low SBP 70''s -80's and AFIB with RVR 140's -150's notified EDMARREIMBURSEMENT LIAISON .Orders received and carried out.Dutch Synephrine gtt started at 0.5 mcg. Awaiting for Amiodarone to be started.assembler wet wash preparing meds.
[2022-02-10] VITALS (89 sets, daily range): BP systolic 64–233; BP diastolic 32–183
[2022-02-10] MEDS ORDERED: PHENYLEPHRINE 100 MG in IV NS 0.9% 240 ML IV PRN ×2
--- NOTE | 2022-02-10 00:19 | NUR ---
At 0018 Upon making rounds noted patient became somnolent breathing became shallow. Blood sugar checked 106.BP not appreciated,pulse not palpable then became apneic. 0019 CODE BLUE called.Please refer to Cardiopulmonary Arrest Record.
[2022-02-10] MEDS: PROPOFOL 100 ML IV PRN ×3 (00:45→19:39)
--- NOTE | 2022-02-10 00:57 | NUR ---
@0019 PT CODED. CPR INITIATED, RN AT BEDSIDE RT AT BEDSIDE. AT BEDSIDE FOR INTUBATION. PT INTUBATED @0033. COLOR CHANGE ON CO2 DETECTOR. ETT SIZE 7.5 @20CM. PT PLACED ON VENT. SX'D MOD AMT OF THICK YELLOW SECRETIONS. CONTINUE TO MONITOR. Addendum: 02/10/22 at 0101 by KATHYA BADILLO RT Amended: Links added.
--- NOTE | 2022-02-10 01:00 | NUR ---
Patient Temp 93.[address] on Fara hugger will monitor closely.
[2022-02-10] MEDS: VANCOMYCIN HCL 0.75 GM in IV D5W 250 ML IV SCH ×2 (01:25→12:41)
[2022-02-10] MEDS: IV NS 0.9% 250 ML IV PRN (01:35)
[2022-02-10] MEDS ORDERED: NOREPINEPHRINE 4 MG/4 ML AMPUL IV ONE (02:08)
[2022-02-10] MEDS ORDERED: NOREPINEPHRINE 32 MG in IV NS 0.9% 218 ML IV PRN (02:30)
[2022-02-10 04:08] LABS: ABG BASE EXCESS 4.6 mmol/L; ABG OXYGEN SATURATION 98.6 % (92.0-98.5); ABG PCO2 39.1 mmHg (35.0-45.0); ABG PH 7.479 (7.350-7.450); ABG PO2 137.6 mmHg (75.0-100.0); AaDO2 536.3 mmHg; COHb 0.3 % (0.5-1.5); MetHb 0.1 % (0.0-1.5); O2Hb 98.2 % (94.0-97.0); PEEP,BG 5 cm H2O; SITE, ABG Left Radial
--- NOTE | 2022-02-10 04:11 | NUR ---
ABG DONE POST INTUBATION. RN NOTIFIED. FIO2 TITRATED TO 60%.
[2022-02-10] MEDS: ALBUTEROL HALF STRENGTH 1.25 MG/3 ML VIAL.NEB NEB SCH ×6 (04:18→23:46)
[2022-02-10] MEDS: IPRATROPIUM NEB FS 0.5 MG/2.5 ML AMPUL.NEB NEB SCH ×6 (04:18→23:46)
[2022-02-10 05:04] LABS: CALCIUM, SERUM 7.3 mg/dL (8.5-10.1); CARBON DIOXIDE 34 mmol/L (21-32); CHLORIDE 102 mmol/L (98-107); CREATININE 0.9 mg/dL (0.6-1.3); GLUCOSE 221 mg/dL (74-106); POTASSIUM 4.2 mmol/L (3.5-5.1); SODIUM SERUM 140 mmol/L (136-145); UREA NITROGEN, BLOOD 29 mg/dL (7-18)
--- NOTE | 2022-02-10 06:55 | NUR ---
Patient remains hemodynamically unstable.Dutch synephrine titrated.Patient converted to SR/ST post CODE Amiodarone not started.ST low 100's.No distress noted.LAWRENCE drain drained 130 ml.No BM noted.Oliguric.Remains FULL CODE status.Family here at 0100.Will endorse to day shift for SUELLEN
[2022-02-10] MEDS: PANTOPRAZOLE 40 MG TABLET.DR PO SCH (07:30)
--- NOTE | 2022-02-10 07:30 | NUR ---
RN NOTES PT FOUND SEMI FOWLERS, FLACC = 0, RIKERS = 3-4, BILATERAL RISE AND FALL OF THE CHEST OBSERVED. JARED HUGGER ON PT BUT ON STANDBY, CURRENT TEMP READS 99.4. R UA ML IS PATIENT AND INTACT. BILATERAL SOFT WRISTS APPLIED, PULSES PALPATED DISTALLY AND CAP REFILL < 3 SECONDS BILATERALLY. KELLY CATH RESERVOIR BELOW PATIENT DRAINING BY GRAVITY. RN WILL CONTINUE CARE PLAN AND ANTICIPATE NEEDS. SAFETY MEASURES IN PLACE, BED LOCKED AND IN LOWEST POSITION, SIDE RAILS UPX2, CALL LIGHT WITHIN REACH, BED ALARM ARMED.
[2022-02-10] MEDS: GLUCERNA SHAKE 237 ML CAN PO SCH ×2 (08:00→12:00)
--- NOTE | 2022-02-10 08:00 | NUR ---
NURSING NOTES ALL PO RX NOT GIVEN, PT INTUBATED LAST NIGHT, NO CURRENT G-TUBE. PT CURRENTLY HEMODYNAMICALLY UNSTABLE. RN WILL START G-TUBE WHEN PT CONDITION IMPROVES.
[2022-02-10] MEDS: LOSARTAN POTASSIUM 25 MG TABLET PO SCH (08:05)
[2022-02-10] MEDS: ERGOCALCIFEROL (VITAMIN D2) 8,000 UNIT/ML PO SCH (08:06)
[2022-02-10] MEDS: METOPROLOL TARTRATE 25 MG TABLET PO SCH (08:06)
[2022-02-10] MEDS: CHOLECALCIFEROL 1,000 UNIT TABLET (VIT D3) PO SCH (08:06)
[2022-02-10] MEDS: AMLODIPINE BESYLATE 5 MG TABLET PO SCH (08:06)
[2022-02-10] MEDS: MULTIVITAMIN/LUTEIN/MINERALS 1 TAB PO SCH (08:06)
--- NOTE | 2022-02-10 08:10 | NUR ---
MD VISIT DR MOTA VISITED PT, PERFORMED ASSESSMENT. MD GAVE ORDERS: MODIFY PROTOCOL FOR NEOSYNEPHRINE TITRATION FROM 0.1 RESIDENTIAL/KG/MIN TO 0.3 MCG/KG/MIN. RN ACKNOWLEDGED AND WILL EXECUTE ORDERS.
[2022-02-10] MEDS: ACETYLCYSTEINE 10% SOLN 400 MG/4 ML VIAL NEB SCH ×3 (08:20→23:46)
[2022-02-10] MEDS: methylPREDNISolone SOD SUCC 40 MG/ML VIAL IV SCH (08:41)
[2022-02-10] MEDS ORDERED: EPINEPHRINE (1:10,000) SYRINGE 1 MG/10 ML DISP.SYRIN IVP ONE (08:55)
[2022-02-10] MEDS ORDERED: ROCURONIUM BROMIDE 50 MG/5 ML IV ONE (09:01)
[2022-02-10] MEDS ORDERED: ETOMIDATE 2 MG/ML VIAL IV ONE (09:01)
[2022-02-10] MEDS: HYDROCORTISONE SOD SUCCINATE 100 MG/2 ML VIAL IV SCH ×3 (09:02→20:53)
[2022-02-10] MEDS: MEROPENEM 1 G in IV NS 0.9% 100 ML IV SCH ×2 (09:02→22:01)
[2022-02-10] MEDS: PHENYLEPHRINE 100 MG in IV NS 0.9% 240 ML IV PRN ×2 (09:53→12:45)
[2022-02-10] MEDS: MICAFUNGIN SODIUM 100 MG in IV NS 0.9% 100 ML IV SCH (10:00)
--- NOTE | 2022-02-10 15:50 | NUR ---
MD COMMUNICATION RN INFORMED MD OF PT HIGH HEART RATE. MD ORDERED EKG. RN INFORMED MD OF RESULTS, MD ORDERED AMIODARONE BOLUS AND MAINTENANCE. RN ACKNOWLEDGED AND WILL EXECUTE ORDERS.
[2022-02-10] MEDS ORDERED: AMIODARONE 150 MG in IV D5W 100 ML IV ONE ×3 (16:00)
[2022-02-10] MEDS ORDERED: AMIODARONE 450 MG in IV D5W 241 ML IV PRN ×3 (16:00)
[2022-02-10] MEDS: AMIODARONE 450 MG in IV D5W 241 ML IV PRN ×2 (16:21→22:33)
[2022-02-10] MEDS ORDERED: FENTANYL CITRAT IV 2,500 MCG in IV NS 0.9% 200 ML IV PRN (18:30)
--- NOTE | 2022-02-10 19:28 | NUR ---
RN NOTES PT FOUND SEMI FOWLERS, FLACC = 0, RIKERS = 3, BILATERAL RISE AND FALL OF THE CHEST OBSERVED. PT FEBRILE, COOLING BLANKET TO BE PLACED SHORTLY. R UA ML REMOVED, REPLACED WITH PICC. R UA PICC IS IS PATIENT AND INTACT. BILATERAL SOFT WRISTS REMOVED BUT ON STAND BY. A-LINE STARTED, TRANSDUCER ZEROED AND PLACED AT THE LEVEL OF THE HEART. KELLY CATH RESERVOIR BELOW PATIENT DRAINING BY GRAVITY. SBAR AND REPORT GIVEN TO DRILL RUNNER, ALL QUESTIONS ANSWERED. SAFETY MEASURES IN PLACE, BED LOCKED AND IN LOWEST POSITION, SIDE RAILS UPX2, CALL LIGHT WITHIN REACH, BED ALARM ARMED.
--- NOTE | 2022-02-10 20:00 | NUR ---
Received patient orally intubated with prescribed settings well tolerated no acute distress noted. Patient sedated on Diprivan gtt at 80 mcg.Hemodynamically unstable.[id number]'s with ongoing Dutch Synephrine gtt max dose and Levophed gtt for BP support.Amiodarone gtt infusing at 1mg/hr and will adjust per protocol.R NGT placement verified with Nepro feeding in progress.No residual noted.Maintain HOB elevated.Abdomen soft BS + abdominal dressing C/D/I.LAWRENCE drain in place with pus like output.FC to gravity.Patient febrile 104.4 cooling measures continued.Cooling blanket in place.Turned and repositioned.Closely monitored.
[2022-02-10] MEDS: ACETAMINOPHEN 325 MG TABLET PO PRN (20:53)
--- NOTE | 2022-02-10 22:00 | NUR ---
Shayanfrom ID here evaluated patient with orders and carried out.Blood C/S and Urine C/S obtained and sent to lab.RT aware patient needs sputum sample.Per RT patient is dry.
[2022-02-11] VITALS (94 sets, daily range): BP systolic 60–186; BP diastolic 33–83
--- NOTE | 2022-02-11 | NUR ---
Patient remains sedated/intubated.No acute distress noted.Latest temp 100.1.Continues cooling measures done.Was given tylenol for fever.Turned and repositioned.
[2022-02-11] MEDS: PHENYLEPHRINE 100 MG in IV NS 0.9% 240 ML IV PRN ×2 (00:23→12:20)
[2022-02-11] MEDS: PROPOFOL 100 ML IV PRN ×3 (00:30→09:02)
[2022-02-11] MEDS: VANCOMYCIN HCL 0.75 GM in IV D5W 250 ML IV SCH (01:00)
[2022-02-11] MEDS: IPRATROPIUM NEB FS 0.5 MG/2.5 ML AMPUL.NEB NEB SCH ×6 (03:24→23:30)
[2022-02-11] MEDS: ALBUTEROL HALF STRENGTH 1.25 MG/3 ML VIAL.NEB NEB SCH ×6 (03:24→23:30)
[2022-02-11 03:42] LABS: BASOPHILS % (AUTO) 0.2 % (0.0-2.0); EOSINOPHILS % (AUTO) 0.2 % (0.0-6.0); HEMATOCRIT 26 % (33-45); HEMOGLOBIN 8.8 g/dL (11.5-14.8); LYMPHOCYTES # (AUTO) 0.4 K/uL (0.8-4.8); LYMPHOCYTES % (AUTO) 2.2 % (20.0-44.0); MEAN CORPUSCULAR HGB CONC 34 g/dl (31.0-36.0); MEAN CORPUSCULAR VOLUME 93 fL (82-100); MONOCYTES # (AUTO) 0.2 K/uL (0.1-1.30); NEUTROPHILS % (AUTO) 96.4 % (43.0-81.0); PLATELET COUNT (AUTO) 120 K/uL (150-450); RED BLOOD CELL COUNT(AUTO) 2.76 MIL/uL (4.0-5.2); WHITE BLOOD COUNT (AUTO) 18.7 K/uL (4.3-11.0)
[2022-02-11] MEDS: HYDROCORTISONE SOD SUCCINATE 100 MG/2 ML VIAL IV SCH (04:30)
[2022-02-11 06:20] LABS: CALCIUM, SERUM 7.3 mg/dL (8.5-10.1); CARBON DIOXIDE 30 mmol/L (21-32); CHLORIDE 100 mmol/L (98-107); CREATININE 1.7 mg/dL (0.6-1.3); SODIUM SERUM 135 mmol/L (136-145); UREA NITROGEN, BLOOD 52 mg/dL (7-18)
--- NOTE | 2022-02-11 06:20 | NUR ---
Patient status unchanged.AM care done.BM small amount brown soft stools.Kept clean and dry. All IV's infusing well.Amiodarone at 0.5 mcg/hr,Dutch Synephrine at 3 mcg max dose,Levophed at 0.1 mcg Diprivan at 80 mcg.Fentanyl gtt not started patient well sedated.Tolerating vent settings. Tolerating feeding per NGT.Oliguric.LAWRENCE drain looks like pus or tube feeding color.Turned and repositioned Q 2hrs.Patient remains critical.Will endorse to day shift for SUELLEN.
[2022-02-11 06:26] LABS: ALANINE AMINOTRANSFERASE 219 U/L (12-78); ALKALINE PHOSPHATASE 167 U/L (46-116); ASPARTATE AMINOTRANSFERASE 155 U/L (15-37); BILIRUBIN,TOTAL 0.6 mg/dL (0.2-1.0); PHOSPHORUS 4.9 mg/dL (2.5-4.9); TOTAL PROTEIN, SERUM 4.6 g/dL (6.4-8.2)
[2022-02-11 06:37] LABS: ALBUMIN 0.9 g/dL (3.4-5.0); GLUCOSE 410 mg/dL (74-106)
[2022-02-11] MEDS ORDERED: DEXTROSE 50%-WATER 50 ML DISP.SYRIN IV PRN ×2 (07:00→13:30)
--- NOTE | 2022-02-11 07:05 | NUR ---
Received abnormal labs from [place] from lab Glucose =410,Pshmjbpc=158,Albumin=0.9 called to Jade Joel NP.Orders received and carried out.Report given to PHOEBE Trinh for SUELLEN.
--- NOTE | 2022-02-11 07:10 | NUR ---
RN NOTE RN UPON REPORT STOPPED TF WHEN FLOYD FLUID OBSERVED IN LAWRENCE DRAIN, RN WILL SEEK CLARIFICATION FROM PROVIDER SHORTLY.
--- NOTE | 2022-02-11 07:15 | NUR ---
RN NOTES PT FOUND SEMI FOWLERS DISPLAYING NO S/S OF DISTRESS, FLACC = 0, RIKERS = 2 AND BILATERAL RISE AND FALL OF THE CHEST OBSERVED. L EJ 20G IS PATIENT AND INTACT. R UA PICC IS PATIENT AND INTACT. RESPIRATORY RATE AND HEART RATE ARE CONTROLLED. KELLY CATHETER RESERVOIR IS BELOW PATIENT DRAINING BY GRAVITY. RN WILL CONTINUE CARE PLAN AND ANTICIPATE NEEDS. SAFETY MEASURES IN PLACE, BED LOCKED AND IN LOWEST POSITION, SIDE RAILS UPX2, CALL LIGHT WITHIN REACH, BED ALARM ARMED.
[2022-02-11] MEDS: PANTOPRAZOLE 40 MG TABLET.DR PO SCH (07:30)
[2022-02-11] MEDS: INSULIN REGULAR, HUMAN 100 UNIT/ML 3 ML VIAL SQ PRN ×4 (07:39→23:46)
--- NOTE | 2022-02-11 07:45 | NUR ---
DNP COMMUNICATION RN INFORMED SASHA MCKENZIE OF OBSERVATION OF LAWRENCE DRAIN. DNP GAVE ORDERS: STAT KUMarcy. RN ACKNOWLEDGED AND WILL EXECUTE ORDER.
[2022-02-11] MEDS: ACETYLCYSTEINE 10% SOLN 400 MG/4 ML VIAL NEB SCH (08:11)
--- NOTE | 2022-02-11 08:15 | NUR ---
MD COMMUNICATION RN COMMUNICATED W/ DR SRIVASTAVA ABOUT OBSERVATIONS, MD GAVE ORDERS: ADD BLUE DYE TO TF AND OBSERVE LAWRENCE DRAIN. RN ACKNOWLEDGED AND WILL EXECUTE ORDER.
[2022-02-11 08:58] LABS: TRIGLYCERIDES 728 mg/dL (30-150)
[2022-02-11] MEDS: MULTIVITAMIN/LUTEIN/MINERALS 1 TAB PO SCH (09:00)
[2022-02-11] MEDS: CHOLECALCIFEROL 1,000 UNIT TABLET (VIT D3) PO SCH (09:00)
[2022-02-11 09:05] LABS: ABG BASE EXCESS 3.9 mmol/L; ABG OXYGEN SATURATION 91.4 % (92.0-98.5); ABG PCO2 54.7 mmHg (35.0-45.0); ABG PH 7.359 (7.350-7.450); ABG PO2 67.1 mmHg (75.0-100.0); AaDO2 227.9 mmHg; COHb 0.3 % (0.5-1.5); MetHb 0.2 % (0.0-1.5); O2Hb 90.9 % (94.0-97.0); PEEP,BG 5 cm H2O; SITE, ABG Right Radial; VT, ABG 400 mL
[2022-02-11] MEDS: methylPREDNISolone SOD SUCC 40 MG/ML VIAL IV SCH (09:38)
[2022-02-11] MEDS: IV NS 0.9% 250 ML IV PRN (09:38)
[2022-02-11 10:21] LABS: BAND % (MANUAL) 22 % (0.0-5.0); LYMPHOCYTES % (MANUAL) 2 % (16-48); METAMYELOCYTES % 2 % (0-0); MONOCYTES % (MANUAL) 2 % (0-11.0); MYELOCYTES % 2 % (0-0); NEUTROPHILS % (MANUAL) 70 (42-76)
--- NOTE | 2022-02-11 11:00 | NUR ---
MD COMMUNICATION RN CONTACTED DR SRIVASTAVA, INFORMED MD OF CURRENT BLUE DYE IN HAND, DOUBLE CHECKED WITH SURGEON FOR PATIENT SAFETY. SAID, "SURE". RN GAVE BLUE DYE MIXED WITH NEPRO AND WILL ASSESS LAWRENCE DRAIN Q1H.
[2022-02-11] MEDS: MEROPENEM 1 G in IV NS 0.9% 100 ML IV SCH ×2 (11:25→22:01)
[2022-02-11] MEDS: MICAFUNGIN SODIUM 100 MG in IV NS 0.9% 100 ML IV SCH (11:25)
[2022-02-11] MEDS ORDERED: BLOOD SUGAR DIAGNOSTIC 1 EACH STRIP IN SCH (12:00)
[2022-02-11] MEDS ORDERED: TPN/PPN PER PHARMACY IV PRN (12:30)
[2022-02-11] MEDS ORDERED: MIDAZOLAM HCL 200 MG in IV NS 0.9% 60 ML IV PRN (13:30)
[2022-02-11] MEDS ORDERED: HYDROCORTISONE SOD SUCCINATE 100 MG/2 ML VIAL IV SCH (14:00)
[2022-02-11] MEDS ORDERED: TPN BAG #1 IV SCH ×4 (14:00)
[2022-02-11] MEDS ORDERED: VANCOMYCIN 500 MG in IV D5W 100ml IV SCH (14:00)
[2022-02-11 14:01] LABS: BASOPHILS % (AUTO) 0.2 % (0.0-2.0); EOSINOPHILS % (AUTO) 0.2 % (0.0-6.0); HEMATOCRIT 26 % (33-45); HEMOGLOBIN 8.2 g/dL (11.5-14.8); LYMPHOCYTES # (AUTO) 0.4 K/uL (0.8-4.8); MEAN CORPUSCULAR HGB CONC 32 g/dl (31.0-36.0); MEAN CORPUSCULAR VOLUME 92 fL (82-100); MONOCYTES # (AUTO) 0.1 K/uL (0.1-1.30); MONOCYTES % (AUTO) 0.4 % (2.0-12.0); NEUTROPHILS # (AUTO) 20.6 K/uL (1.8-8.9); NEUTROPHILS % (AUTO) 97.2 % (43.0-81.0); PLATELET COUNT (AUTO) 96 K/uL (150-450); RED BLOOD CELL COUNT(AUTO) 2.76 MIL/uL (4.0-5.2); WHITE BLOOD COUNT (AUTO) 21.2 K/uL (4.3-11.0)
[2022-02-11] MEDS: AMIODARONE 450 MG in IV D5W 241 ML IV PRN (14:01)
[2022-02-11] MEDS: FENTANYL CITRAT IV 2,500 MCG in IV NS 0.9% 200 ML IV PRN (14:33)
[2022-02-11] MEDS: MIDAZOLAM HCL 100 MG in IV NS 0.9% 80 ML IV PRN (14:35)
[2022-02-11 15:02] LABS: ALBUMIN 0.9 g/dL (3.4-5.0)
[2022-02-11] MEDS: BLOOD SUGAR DIAGNOSTIC 1 EACH STRIP IN SCH ×2 (18:08→23:43)
--- NOTE | 2022-02-11 19:28 | NUR ---
RN NOTES PT FOUND SEMI FOWLERS DISPLAYING NO S/S OF DISTRESS, FLACC = 0, RIKERS = 3 AND BILATERAL RISE AND FALL OF THE CHEST OBSERVED. L EJ 20G IS PATIENT AND INTACT. R UA PICC IS PATIENT AND INTACT. RESPIRATORY RATE AND HEART RATE CONTINUE TO BE CONTROLLED. KELLY CATHETER RESERVOIR IS BELOW PATIENT DRAINING BY GRAVITY. LAWRENCE DRAIN INTACT, SUCTIONING. NG TUBE ON LOW INTERMITTENT SUCTIONING. SBAR AND REPORT GIVEN TO RPG PROGRAMMER ANALYST RN, ALL QUESTIONS ANSWERED. SAFETY MEASURES IN PLACE, BED LOCKED AND IN LOWEST POSITION, SIDE RAILS UPX2, CALL LIGHT WITHIN REACH, BED ALARM ARMED.
--- NOTE | 2022-02-11 20:00 | NUR ---
RN NOTE RECEIVED PT ORALLY INTUBATED CONNECTED TO [facility]. NO SIGNS OF DISTRESS NOTED. PT SEDATED. ON VERSED AT 1MG/HR. AND FENTANYL 25MCG/HR. MAX ON WEST AT 3MCG/KG/MIN AND LEVOPHED AT 0.04MCG/KG/MIN. WILL TITRATE TOLERATED PER PROTOCOL. ABDOMINAL SURGICAL DRESSING INTACT, NOTED WITH SOME DRAINAGE, ROSALINA INTACT, NO BLEEDING NOTED. LAWRENCE IN PLACE WITH BLUE DYE COLORED OUTPUT. R NARE NGT IN PLACE. CONNECTED TO LOW INTERMITTENT SUCTION. KELLY CATH IN PLACE WITH CLEAR URINE OUTPUT. FAMILY AT BEDSIDE. WILL CONTINUE TO MONITOR.
[2022-02-11] MEDS: NOREPINEPHRINE 8 MG in IV NS 0.9% 242 ML IV PRN (20:50)
[2022-02-11 22:30] LABS: BAND % (MANUAL) 22 % (0.0-5.0); LYMPHOCYTES % (MANUAL) 5 % (16-48); METAMYELOCYTES % 8 % (0-0); MONOCYTES % (MANUAL) 1 % (0-11.0); NEUTROPHILS % (MANUAL) 64 (42-76)
--- NOTE | 2022-02-11 23:45 | NUR ---
RN NOTE TURNED OFF THERMAL BLANKET, PT T. 98. SKIN WARM TO TOUCH. WILL CONTINUE TO MONITOR.
[2022-02-12] VITALS (98 sets, daily range): BP systolic 68–165; BP diastolic 25–71
[2022-02-12] MEDS: PHENYLEPHRINE 100 MG in IV NS 0.9% 240 ML IV PRN ×2 (00:03→15:26)
[2022-02-12] MEDS: IPRATROPIUM NEB FS 0.5 MG/2.5 ML AMPUL.NEB NEB SCH ×5 (02:39→20:22)
[2022-02-12] MEDS: ALBUTEROL HALF STRENGTH 1.25 MG/3 ML VIAL.NEB NEB SCH ×5 (02:39→20:22)
--- NOTE | 2022-02-12 04:45 | NUR ---
RN NOTE PT WITH EDEMA IN BUE BLE AND ABDOMEN. 150ML URINE OUTPUT. ALSO NOTED WITH SOME LEAKAGE ON LUCIO SITE. NOTIFIED AUDIENCE COORDINATOR EMERGENCY MANAGEMENT DIRECTOR MARIA LUISA SCHOFIELD. TO KEEP LUCIO FOR NOW. READING WITH GOOD WAVE FORM. WILL CONTINUE TO MONITOR.
--- NOTE | 2022-02-12 05:00 | NUR ---
RN NOTE PLACED BACK TO JARED BROOKS. TEMP 96.4
[2022-02-12 05:01] LABS: BASOPHILS % (AUTO) 0.2 % (0.0-2.0); EOSINOPHILS % (AUTO) 0.1 % (0.0-6.0); HEMATOCRIT 23 % (33-45); HEMOGLOBIN 7.5 g/dL (11.5-14.8); LYMPHOCYTES # (AUTO) 0.3 K/uL (0.8-4.8); MEAN CORPUSCULAR HGB CONC 32 g/dl (31.0-36.0); MEAN CORPUSCULAR VOLUME 93 fL (82-100); MONOCYTES # (AUTO) 0.3 K/uL (0.1-1.30); MONOCYTES % (AUTO) 1.6 % (2.0-12.0); NEUTROPHILS # (AUTO) 15.9 K/uL (1.8-8.9); NEUTROPHILS % (AUTO) 96.1 % (43.0-81.0); PLATELET COUNT (AUTO) 65 K/uL (150-450); RED BLOOD CELL COUNT(AUTO) 2.52 MIL/uL (4.0-5.2); WHITE BLOOD COUNT (AUTO) 16.6 K/uL (4.3-11.0)
[2022-02-12 05:17] LABS: CALCIUM, SERUM 7.2 mg/dL (8.5-10.1); CARBON DIOXIDE 26 mmol/L (21-32); CHLORIDE 100 mmol/L (98-107); CREATININE 1.8 mg/dL (0.6-1.3); GLUCOSE 259 mg/dL (74-106); POTASSIUM 3.5 mmol/L (3.5-5.1); SODIUM SERUM 133 mmol/L (136-145)
[2022-02-12] MEDS: BLOOD SUGAR DIAGNOSTIC 1 EACH STRIP IN SCH ×4 (05:27→23:26)
[2022-02-12] MEDS: INSULIN REGULAR, HUMAN 100 UNIT/ML 3 ML VIAL SQ PRN ×4 (05:29→23:29)
[2022-02-12 05:33] LABS: UREA NITROGEN, BLOOD 68 mg/dL (7-18)
[2022-02-12] MEDS ORDERED: TPN BAG #2 IV SCH ×2 (06:00)
[2022-02-12] MEDS: IV NS 0.9% 250 ML IV PRN (06:40)
--- NOTE | 2022-02-12 07:15 | NUR ---
RN NOTE PT TOLERATES VENT SETTINGS, O2 SAT AT 99%. NO SIGNS OF DISTRESS. STILL SEDATED. LEVO AND WEST TITRATED PER PROTOCOL. TOLERATES TPN. INFUSING WELL, PIC LINE INTACT AND PATENT. LAWRENCE DRAIN TOTAL OUTPUT 55ML BLUE COLORED. URINE OUTPUT 175ML, YELLOWISH WITH SOME BLUE COLOR. NO OUTPUT FROM NGT SUCTION. 2BM. CARE DONE RENDERED. SEROUS DRAINAGE FROM ABDOMINAL SURGICAL SITE. DRESSING CHANGED. ALL SAFETY MEASURES REMAIN IN PLACE. ENDORSED TO RONEY FOR SUELLEN.
[2022-02-12] MEDS: PANTOPRAZOLE 40 MG TABLET.DR PO SCH (07:30)
--- NOTE | 2022-02-12 07:30 | NUR ---
OPENING NOTE: REPORT RECEIVED FROM REGLA SANDHU. ORDERS AND LABS REVIEWED DURING REPORT. PT CURRENTLY ON LEVOPHED, WEST, FENTANYL, VERSED AND TPN INFUSING PER MD ORDERS, SEE IV SPREADSHEET FOR CURRENT INFUSION RATES. NG TUBE TO LIS PER MD ORDERS, SMALL AMOUNT OF RETURNS OF BLUE LIQUID. BLUE DYE INJECTED IN NG YESTERDAY TO SEE IF IT WOULD COME OUT THE LAWRENCE. BLUE LIQUID CAME OUT LAWRENCE DRAIN. MD'S AWARE. PT CHECKED ON HOURLY AND PRN BY NURSING STAFF.
[2022-02-12] MEDS: CHOLECALCIFEROL 1,000 UNIT TABLET (VIT D3) PO SCH (07:45)
[2022-02-12] MEDS: MULTIVITAMIN/LUTEIN/MINERALS 1 TAB PO SCH (07:45)
[2022-02-12] MEDS ORDERED: VANCOMYCIN 500 MG in IV D5W 100ml IV SCH ×2 (08:00→17:00)
[2022-02-12] MEDS: MEROPENEM 1 G in IV NS 0.9% 100 ML IV SCH (09:14)
[2022-02-12 09:47] LABS: LYMPHOCYTES % (MANUAL) 6 % (16-48); MONOCYTES % (MANUAL) 2 % (0-11.0); NEUTROPHILS % (MANUAL) 92 (42-76)
[2022-02-12] MEDS: PANTOPRAZOLE 40 MG VIAL IV SCH (10:16)
[2022-02-12] MEDS: MICAFUNGIN SODIUM 100 MG in IV NS 0.9% 100 ML IV SCH (10:16)
--- NOTE | 2022-02-12 11:26 | NUR ---
et-tube pulled back 2cm per md order. 18 cm at lip Addendum: 02/12/22 at 1126 by JARROD URIAS RT Amended: Links added.
--- NOTE | 2022-02-12 11:53 | NUR ---
VERSED TURNED OFF AT 0852 FOR SEDATION VACATION. PT NOT RESPONDING TO PAINFUL STIMULI. DR ATKINSON AWARE. AT 1138 PT STARTED WAKING UP, GOT SLIGHTLY AGITATED, RESPIRATIONS GOING UP. VERSED RESUMED AT 1138. DR ATKINSON NOTIFIED.
[2022-02-12] MEDS ORDERED: FAT EMULSION 20% 500 ML in PREMIX 1 EA IV SCH (15:00)
[2022-02-12] MEDS: FENTANYL CITRAT IV 2,500 MCG in IV NS 0.9% 200 ML IV PRN (15:27)
[2022-02-12] MEDS: MIDAZOLAM HCL 100 MG in IV NS 0.9% 80 ML IV PRN (15:28)
[2022-02-12 17:05] LABS: BASOPHILS # (AUTO) 0.1 K/uL (0.0-0.2); BASOPHILS % (AUTO) 0.5 % (0.0-2.0); EOSINOPHILS % (AUTO) 0.1 % (0.0-6.0); HEMATOCRIT 27 % (33-45); LYMPHOCYTES # (AUTO) 0.4 K/uL (0.8-4.8); LYMPHOCYTES % (AUTO) 2.6 % (20.0-44.0); MEAN CORPUSCULAR HGB CONC 37 g/dl (31.0-36.0); MEAN CORPUSCULAR VOLUME 99 fL (82-100); MONOCYTES # (AUTO) 0.1 K/uL (0.1-1.30); MONOCYTES % (AUTO) 0.6 % (2.0-12.0); NEUTROPHILS # (AUTO) 13.7 K/uL (1.8-8.9); NEUTROPHILS % (AUTO) 96.2 % (43.0-81.0); PLATELET COUNT (AUTO) 53 K/uL (150-450); RED BLOOD CELL COUNT(AUTO) 2.72 MIL/uL (4.0-5.2); WHITE BLOOD COUNT (AUTO) 14.2 K/uL (4.3-11.0)
[2022-02-12 17:29] LABS: PREALBUMIN 9.2 MG/DL (18.0-35.7)
[2022-02-12 17:37] LABS: ALBUMIN 0.6 g/dL (3.4-5.0)
[2022-02-12] MEDS ORDERED: TPN BAG #3 IV SCH ×4 (18:00)
[2022-02-12 18:02] LABS: BAND % (MANUAL) 11 % (0.0-5.0); EOSINOPHILS % (MANUAL) 2 % (0-4); LYMPHOCYTES % (MANUAL) 4 % (16-48); METAMYELOCYTES % 18 % (0-0); NEUTROPHILS % (MANUAL) 65 (42-76)
--- NOTE | 2022-02-12 18:18 | NUR ---
END OF SHIFT NOTE: PT HAD A FAIRLY UNEVENTFUL SHIFT. PER PREVIOUSLY NOTED VERSED OF OFF FOR A FEW HOURS, PT WOKE UP AND GOT SLIGHTLY AGITATED, VERSED RESUMED. FENTANYL GTT INCREASED TO 50 MCG/HR FOR RR OF 32 AT END OF SHIFT. NO BM THIS SHIFT. LAWRENCE 12ML OUT, KELLY 150ML, NG TUBE 0. LEVOPHED TITRATED OFF. WEST-SYNEPHRINE INFUSING AT 2.4 MCG/KG/MIN PER MD ORDERS. 1 UNIT OF PRBCS GIVEN PER MD ORDERS. PT CHECKED ON HOURLY AND PRN BY NURSING STAFF.
--- NOTE | 2022-02-12 20:00 | NUR ---
MANAGER BEVERAGE RT UNABLE TO INDUCE SPUTUM TO SEND SPECIMEN
[2022-02-12] MEDS: MEROPENEM 500 MG in IV NS 0.9% 50 ML IV SCH (21:16)
[2022-02-13] VITALS (99 sets, daily range): BP systolic 78–152; BP diastolic 28–64
[2022-02-13] MEDS: IPRATROPIUM NEB FS 0.5 MG/2.5 ML AMPUL.NEB NEB SCH ×7 (00:03→23:30)
[2022-02-13] MEDS: ALBUTEROL HALF STRENGTH 1.25 MG/3 ML VIAL.NEB NEB SCH ×7 (00:03→23:30)
[2022-02-13 04:04] LABS: BASOPHILS % (AUTO) 0.2 % (0.0-2.0); EOSINOPHILS % (AUTO) 1.3 % (0.0-6.0); HEMATOCRIT 26 % (33-45); HEMOGLOBIN 9.3 g/dL (11.5-14.8); LYMPHOCYTES # (AUTO) 0.4 K/uL (0.8-4.8); LYMPHOCYTES % (AUTO) 2.5 % (20.0-44.0); MEAN CORPUSCULAR HGB CONC 36 g/dl (31.0-36.0); MEAN CORPUSCULAR VOLUME 92 fL (82-100); MONOCYTES % (AUTO) 0.3 % (2.0-12.0); NEUTROPHILS # (AUTO) 15.7 K/uL (1.8-8.9); NEUTROPHILS % (AUTO) 95.7 % (43.0-81.0); RED BLOOD CELL COUNT(AUTO) 2.85 MIL/uL (4.0-5.2); WHITE BLOOD COUNT (AUTO) 16.4 K/uL (4.3-11.0)
[2022-02-13 04:06] LABS: PLATELET COUNT (AUTO) 46 K/uL (150-450)
[2022-02-13 04:23] LABS: CALCIUM, SERUM 6.1 mg/dL (8.5-10.1); CARBON DIOXIDE 24 mmol/L (21-32); CHLORIDE 96 mmol/L (98-107); CREATININE 1.9 mg/dL (0.6-1.3); GLUCOSE 305 mg/dL (74-106); MAGNESIUM 1.7 mg/dL (1.8-2.4); PHOSPHORUS 3.7 mg/dL (2.5-4.9); POTASSIUM 3.3 mmol/L (3.5-5.1); SODIUM SERUM 127 mmol/L (136-145)
[2022-02-13 04:26] LABS: CHOLESTEROL 72 mg/dL (<200); HDL CHOLESTEROL 11 mg/dL (40-60); LDL 37 mg/dL (0-99); TRIGLYCERIDES 611 mg/dL (30-150)
[2022-02-13 04:40] LABS: UREA NITROGEN, BLOOD 90 mg/dL (7-18)
[2022-02-13 04:55] LABS: BAND % (MANUAL) 16 % (0.0-5.0); BASOPHILS % (MANUAL) 0 % (0.0-2.0); EOSINOPHILS % (MANUAL) 0 % (0-4); LYMPHOCYTES % (MANUAL) 6 % (16-48); MONOCYTES % (MANUAL) 4 % (0-11.0); NEUTROPHILS % (MANUAL) 74 (42-76)
[2022-02-13] MEDS: BLOOD SUGAR DIAGNOSTIC 1 EACH STRIP IN SCH ×4 (05:06→23:55)
[2022-02-13] MEDS: PHENYLEPHRINE 100 MG in IV NS 0.9% 240 ML IV PRN ×2 (05:59→18:55)
[2022-02-13] MEDS ORDERED: TPN BAG #4 IV SCH ×2 (06:00)
[2022-02-13] MEDS: INSULIN REGULAR, HUMAN 100 UNIT/ML 3 ML VIAL SQ PRN ×3 (06:09→17:27)
[2022-02-13 07:46] LABS: ABG BASE EXCESS -5.9 mmol/L; ABG OXYGEN SATURATION 90.6 % (92.0-98.5); ABG PCO2 45.4 mmHg (35.0-45.0); ABG PH 7.276 (7.350-7.450); ABG PO2 58.1 mmHg (75.0-100.0); AaDO2 247.3 mmHg; COHb 0.3 % (0.5-1.5); MetHb 0.4 % (0.0-1.5); SITE, ABG A-Line
--- NOTE | 2022-02-13 08:00 | NUR ---
RN NOTES RECEIVED PATIENT IN THE ETT/VENT SETTINGS OF FIO2- 50%, PEEP-5, AC-14. BEDSIDE MONITOR SHOWS- SR-101. PATIENT SEDATED ON FENTANYL 25MCG/KG/MIN, AND VERSED 1MG/ML/HR. PATIENT ON LUCIO ON RIGHT GROIN. PICC LINE GLADIS INFUSING LIPIDS 21 ML/HR, TPN 80 ML/HR, NORSYNEPHRINE 2.3 MCG/KG/MIN, AND TPN @10 ML/HR INTACT. NGT INTERMITTENT SUCTIONING OUTPUT IS 10ML. LAWRENCE DRAINING MENDOZA OUTPUT. KELLY CATHETER DRAINING VIA GRAVITY. ABDOMINAL INCISION INTACT . PATIENT HAS GENERALIZED EDEMA. OOZING FROM UPPER EXTREMITIES, AND ABDOMEN, DVT PUMP ON. ASSIST TURN AND REPOSTION Q 2 HR . PATIENT FULL CODE, ON CREITICAL CONDITION. DAUGHTER NEXT TO THE BED. WILL FOLLOW UP.
[2022-02-13] MEDS: MULTIVITAMIN/LUTEIN/MINERALS 1 TAB PO SCH (08:51)
[2022-02-13] MEDS: MEROPENEM 500 MG in IV NS 0.9% 50 ML IV SCH ×2 (08:58→20:27)
[2022-02-13] MEDS: VANCOMYCIN 500 MG in IV D5W 100ml IV SCH (08:58)
[2022-02-13] MEDS: PANTOPRAZOLE 40 MG VIAL IV SCH (08:58)
[2022-02-13] MEDS: IV NS 0.9% 250 ML IV PRN (09:09)
--- NOTE | 2022-02-13 09:31 | NUR ---
RN NOTES BP -88/39, P-105 TITRATED UP NEOSYNEPHRINE 2.5 MCG/KG/MIN, PATIENT HAS NO URINE OUTPUT, GENERALIZED EDEMA , AND OZZING FROM ARMS, AND ABDOMEN. NO SEDATION VACATION TODAY PER Dr AGEE ORDER. WILL FOLLOW UP.
--- NOTE | 2022-02-13 10:00 | NUR ---
VENT CHANGES PER DR. DEMETRIO OBANDO 22, 425, 60%, +8 Addendum: 02/13/22 at 1001 by PEYTON SALGADO RT Amended: Links added.
[2022-02-13] MEDS: MICAFUNGIN SODIUM 100 MG in IV NS 0.9% 100 ML IV SCH (11:01)
[2022-02-13] MEDS: NOREPINEPHRINE 8 MG in IV NS 0.9% 242 ML IV PRN ×2 (11:06→23:55)
[2022-02-13] MEDS ORDERED: Magnesium 1GM/D5W 100ML PREMIX 100 ML IV SCH (12:00)
[2022-02-13] MEDS ORDERED: POTASSIUM CL. PREMIX PERIPHER. 50 ML IV SCH (12:00)
--- NOTE | 2022-02-13 12:40 | NUR ---
rn notes bs-262 mg/dl coverage given, son next to the bed. Changed abdominal dressing, bp 93/30 arterial line, p-119,changed vent setting via RT. very poor urine output. will follow up closely.
--- NOTE | 2022-02-13 17:11 | NUR ---
RN NOTES PATIENT IS DNR . BS-222MG/DL, COVERAGE GIVEN, DUE MEDICATION ADMINISTERED.
[2022-02-13] MEDS: FENTANYL CITRAT IV 2,500 MCG in IV NS 0.9% 200 ML IV PRN (17:38)
[2022-02-13] MEDS: MIDAZOLAM HCL 100 MG in IV NS 0.9% 80 ML IV PRN (17:40)
[2022-02-13] MEDS ORDERED: TPN BAG #5 IV SCH ×4 (18:00)
--- NOTE | 2022-02-13 18:23 | NUR ---
PATIENT WITH 7.5 ETT 18@ LIP NON VERBAL WITH ELEVATED HR. PATIENT IS ON VENT WITH OXYGEN AND CONNECTED TO RED POWER SOURCE. BVM BY THE BED SIDE. ETT IN PLACE. PATIENT TOLERATING VENT CHANGES ORDERED BY DEMETRIO SKAGGS. Addendum: 02/13/22 at 1826 by PEYTON SALGADO RT Amended: Links added.
--- NOTE | 2022-02-13 18:30 | NUR ---
RN NOTES HR-130 AT BEDSIDE MONITOR, GENERALIZED EDEMA, UNSTABLE CONDITION. MAX ON NEOSYNEPHRINE 3MCG/KG/MIN, LEVOPHED 0.2 MCG/KG/MIN, TPN @80ML/HR, FENTANYL 25MCG/KG/MIN, VERSED 1 MG/KG/HR. PM CARE DONE LAWRENCE-60ML, POOR URINE OUTPUT 50ML. ASSIST TURN AND REPOSTION Q 2 HR. ENDORSED ONCOMING NURSE SUELLEN.
--- NOTE | 2022-02-13 19:57 | NUR ---
DANCING MASTER HR [id number] STAT EKG REQUESTED
--- NOTE | 2022-02-13 20:00 | NUR ---
CHEST PAIN COORDINATOR RT UNABLE TO INDUCE SPUTUM TO SEND SPECIMEN
[2022-02-13 20:17] LABS: HEMOGLOBIN 10.2 g/dL (11.5-14.8)
[2022-02-13] MEDS ORDERED: AMIODARONE 150 MG/3 ML VIAL IV ONE (20:18)
[2022-02-13] MEDS: AMIODARONE 450 MG in IV D5W 241 ML IV PRN (20:27)
[2022-02-13] MEDS ORDERED: AMIODARONE 150 MG in IV D5W 100 ML IV ONE (20:30)
--- NOTE | 2022-02-13 20:56 | NUR ---
TRACK HELPER PT CONVERTED TO NSR
[2022-02-14] VITALS (96 sets, daily range): BP systolic 88–168; BP diastolic 22–77
[2022-02-14] MEDS: INSULIN REGULAR, HUMAN 100 UNIT/ML 3 ML VIAL SQ PRN ×4 (00:13→18:16)
[2022-02-14] MEDS: ALBUTEROL HALF STRENGTH 1.25 MG/3 ML VIAL.NEB NEB SCH ×6 (02:58→23:38)
[2022-02-14] MEDS: IPRATROPIUM NEB FS 0.5 MG/2.5 ML AMPUL.NEB NEB SCH ×6 (02:58→23:38)
[2022-02-14] MEDS ORDERED: AMIODARONE 150 MG/3 ML VIAL IV ONE (04:41)
[2022-02-14] MEDS: AMIODARONE 450 MG in IV D5W 241 ML IV PRN ×3 (05:06→20:51)
[2022-02-14] MEDS: PHENYLEPHRINE 100 MG in IV NS 0.9% 240 ML IV PRN ×2 (05:06→16:14)
[2022-02-14] MEDS: BLOOD SUGAR DIAGNOSTIC 1 EACH STRIP IN SCH ×3 (05:07→18:16)
[2022-02-14 05:20] LABS: EOSINOPHILS % (AUTO) 0.6 % (0.0-6.0); HEMATOCRIT 26 % (33-45); HEMOGLOBIN 8.3 g/dL (11.5-14.8); LYMPHOCYTES # (AUTO) 0.5 K/uL (0.8-4.8); LYMPHOCYTES % (AUTO) 2.6 % (20.0-44.0); MEAN CORPUSCULAR HGB CONC 32 g/dl (31.0-36.0); MEAN CORPUSCULAR VOLUME 91 fL (82-100); MONOCYTES # (AUTO) 0.2 K/uL (0.1-1.30); MONOCYTES % (AUTO) 0.7 % (2.0-12.0); NEUTROPHILS # (AUTO) 20.2 K/uL (1.8-8.9); NEUTROPHILS % (AUTO) 96.1 % (43.0-81.0); RED BLOOD CELL COUNT(AUTO) 2.83 MIL/uL (4.0-5.2); WHITE BLOOD COUNT (AUTO) 21.1 K/uL (4.3-11.0)
[2022-02-14 05:29] LABS: PLATELET COUNT (AUTO) 42 K/uL (150-450)
[2022-02-14 05:35] LABS: CALCIUM, SERUM 6.7 mg/dL (8.5-10.1); CARBON DIOXIDE 21 mmol/L (21-32); CHLORIDE 91 mmol/L (98-107); CREATININE 2.1 mg/dL (0.6-1.3); GLUCOSE 225 mg/dL (74-106); MAGNESIUM 1.6 mg/dL (1.8-2.4); POTASSIUM 3.3 mmol/L (3.5-5.1)
[2022-02-14 05:44] LABS: SODIUM SERUM 120 mmol/L (136-145)
[2022-02-14 05:45] LABS: UREA NITROGEN, BLOOD 111 mg/dL (7-18)
[2022-02-14] MEDS ORDERED: TPN BAG #6 IV SCH ×2 (06:00)
[2022-02-14 06:05] LABS: BAND % (MANUAL) 20 % (0.0-5.0); LYMPHOCYTES % (MANUAL) 4 % (16-48); MONOCYTES % (MANUAL) 6 % (0-11.0); NEUTROPHILS % (MANUAL) 66 (42-76)
[2022-02-14 06:06] LABS: METAMYELOCYTES % 2 % (0-0); MYELOCYTES % 2 % (0-0)
--- NOTE | 2022-02-14 07:30 | NUR ---
RN NOTES PT FOUND SEMI FOWLERS DISPLAYING NO S/S OF ACUTE DISTRESS, FLACC = 0, RIKERS = 3 AND BILATERAL RISE AND FALL OF THE CHEST OBSERVED. A LINE TRANSDUCER IS ZEROED AND PLACED AT THE LEVEL OF THE HEART. CVP TRANSDUCER IS ZEROED AND PLACED AT THE LEVEL OF THE HEART. R UA PICC IS PATIENT AND INTACT. KELLY CATH RESERVOIR BELOW PATIENT DRAINING BY GRAVITY. LAWRENCE DRAIN HAS BLACK/BROWN SUBSTANCE IN DRAIN. RN WILL CONTINUE CARE PLAN AND ANTICIPATE NEEDS. SAFETY MEASURES IN PLACE, BED LOCKED AND IN LOWEST POSITION, SIDE RAILS UPX2, CALL LIGHT WITHIN REACH, BED ALARM ARMED.
[2022-02-14] MEDS: MULTIVITAMIN/LUTEIN/MINERALS 1 TAB PO SCH (08:23)
[2022-02-14] MEDS: PANTOPRAZOLE 40 MG VIAL IV SCH (08:25)
[2022-02-14] MEDS: MEROPENEM 500 MG in IV NS 0.9% 50 ML IV SCH ×2 (08:25→21:13)
[2022-02-14 09:02] LABS: ABG BASE EXCESS -10.5 mmol/L; ABG OXYGEN SATURATION 96.1 % (92.0-98.5); ABG PCO2 44.1 mmHg (35.0-45.0); ABG PH 7.201 (7.350-7.450); ABG PO2 87.3 mmHg (75.0-100.0); COHb 0.3 % (0.5-1.5); MetHb 0.4 % (0.0-1.5); O2Hb 95.4 % (94.0-97.0); PEEP,BG 8 cm H2O; SITE, ABG A-Line; VENT MODE, BG AC 60%; VT, ABG 425 mL
--- NOTE | 2022-02-14 09:10 | NUR ---
vent changes below per dr. rogers: vt 450 ml Addendum: 02/14/22 at 0910 by SELENE ROBLES RT Amended: Links added.
[2022-02-14] MEDS: MICAFUNGIN SODIUM 100 MG in IV NS 0.9% 100 ML IV SCH (09:57)
[2022-02-14] MEDS ORDERED: Magnesium 1GM/D5W 100ML PREMIX 100 ML IV SCH (11:00)
[2022-02-14] MEDS ORDERED: POTASSIUM CL. PREMIX PERIPHER. 50 ML IV SCH (11:00)
[2022-02-14] MEDS: IV NS 0.9% 250 ML IV PRN (11:13)
[2022-02-14 12:02] LABS: HEMOGLOBIN 8.6 g/dL (11.5-14.8)
[2022-02-14 12:20] LABS: PREALBUMIN 11.4 MG/DL (18.0-35.7)
[2022-02-14 14:12] LABS: ALBUMIN < 0.6 g/dL (3.4-5.0)
[2022-02-14] MEDS: NOREPINEPHRINE 8 MG in IV NS 0.9% 242 ML IV PRN (14:44)
[2022-02-14] MEDS: MIDAZOLAM HCL 100 MG in IV NS 0.9% 80 ML IV PRN (16:57)
[2022-02-14] MEDS: FENTANYL CITRAT IV 2,500 MCG in IV NS 0.9% 200 ML IV PRN (17:02)
[2022-02-14] MEDS ORDERED: TPN BAG #7 IV SCH ×4 (18:00)
--- NOTE | 2022-02-14 19:28 | NUR ---
RN NOTES PT FOUND SEMI FOWLERS DISPLAYING NO S/S OF ACUTE DISTRESS, FLACC = 0, RIKERS = 3 AND BILATERAL RISE AND FALL OF THE CHEST OBSERVED. A LINE TRANSDUCER IS ZEROED AND PLACED AT THE LEVEL OF THE HEART. CVP TRANSDUCER IS ZEROED AND PLACED AT THE LEVEL OF THE HEART. R UA PICC IS PATIENT AND INTACT. KELLY CATH RESERVOIR BELOW PATIENT DRAINING BY GRAVITY. LAWRENCE DRAIN HAS BLACK/BROWN SUBSTANCE IN DRAIN. SBAR AND REPORT GIVEN TO LAY BROTHER RN, ALL QUESTIONS ANSWERED. SAFETY MEASURES IN PLACE, BED LOCKED AND IN LOWEST POSITION, SIDE RAILS UPX2, CALL LIGHT WITHIN REACH, BED ALARM ARMED.
[2022-02-15] VITALS (95 sets, daily range): BP systolic 83–159; BP diastolic 28–66
[2022-02-15] MEDS: BLOOD SUGAR DIAGNOSTIC 1 EACH STRIP IN SCH ×4 (00:15→18:41)
[2022-02-15] MEDS: INSULIN REGULAR, HUMAN 100 UNIT/ML 3 ML VIAL SQ PRN ×4 (00:20→17:25)
[2022-02-15] MEDS: NOREPINEPHRINE 8 MG in IV NS 0.9% 242 ML IV PRN ×2 (01:18→23:11)
[2022-02-15] MEDS: PHENYLEPHRINE 100 MG in IV NS 0.9% 240 ML IV PRN ×2 (03:00→15:02)
--- NOTE | 2022-02-15 03:03 | NUR ---
MED NOTE: VERSED INSURANCE VERIFICATION REPRESENTATIVE TUBING HAD TO BE CHANGED AND PRIMMED DUE TO AIR IN LINE.
[2022-02-15 03:25] LABS: BASOPHILS % (AUTO) 0.2 % (0.0-2.0); EOSINOPHILS % (AUTO) 0.2 % (0.0-6.0); HEMATOCRIT 25 % (33-45); LYMPHOCYTES # (AUTO) 0.5 K/uL (0.8-4.8); LYMPHOCYTES % (AUTO) 2.3 % (20.0-44.0); MEAN CORPUSCULAR HGB CONC 33 g/dl (31.0-36.0); MEAN CORPUSCULAR VOLUME 91 fL (82-100); MONOCYTES # (AUTO) 0.1 K/uL (0.1-1.30); MONOCYTES % (AUTO) 0.4 % (2.0-12.0); NEUTROPHILS # (AUTO) 21.5 K/uL (1.8-8.9); NEUTROPHILS % (AUTO) 96.9 % (43.0-81.0); WHITE BLOOD COUNT (AUTO) 22.2 K/uL (4.3-11.0)
[2022-02-15 03:41] LABS: CARBON DIOXIDE 18 mmol/L (21-32); CHLORIDE 88 mmol/L (98-107); CREATININE 2.1 mg/dL (0.6-1.3); GLUCOSE 196 mg/dL (74-106); POTASSIUM 3.7 mmol/L (3.5-5.1)
[2022-02-15 03:42] LABS: CHOLESTEROL 63 mg/dL (<200); HDL CHOLESTEROL 21 mg/dL (40-60); LDL 35 mg/dL (0-99); TRIGLYCERIDES 53 mg/dL (30-150)
[2022-02-15] MEDS: ALBUTEROL HALF STRENGTH 1.25 MG/3 ML VIAL.NEB NEB SCH ×6 (04:13→23:46)
[2022-02-15] MEDS: IPRATROPIUM NEB FS 0.5 MG/2.5 ML AMPUL.NEB NEB SCH ×6 (04:13→23:46)
[2022-02-15 04:36] LABS: SODIUM SERUM 114 mmol/L (136-145); UREA NITROGEN, BLOOD 124 mg/dL (7-18)
[2022-02-15 04:36] LABS: PLATELET COUNT (AUTO) 39 K/uL (150-450)
[2022-02-15 04:43] LABS: BAND % (MANUAL) 16 % (0.0-5.0); BASOPHILS % (MANUAL) 0 % (0.0-2.0); EOSINOPHILS % (MANUAL) 0 % (0-4); LYMPHOCYTES % (MANUAL) 6 % (16-48); METAMYELOCYTES % 1 % (0-0); MONOCYTES % (MANUAL) 3 % (0-11.0); NEUTROPHILS % (MANUAL) 74 (42-76)
--- NOTE | 2022-02-15 05:07 | NUR ---
ICU/RN: CRITICAL LABS RELAYED TO MARIA LUISA SCHOFIELD ACNP SODIUM 114, BUN 124 AND PLATLET 39 NO NEW ORDERS.
[2022-02-15] MEDS: TPN BAG #8 IV SCH ×4 (05:17→11:20)
--- NOTE | 2022-02-15 07:46 | NUR ---
A line Pressure and Cuff Pressure are not corrrelating. Performed " Manual BP" and obtained a pressure reading of 120/45. Dr Barajas notified. Will titrate Vasopressor based on "Cuff" pressure reading. Will notify PMD
[2022-02-15 08:42] LABS: ABG BASE EXCESS -13.2 mmol/L; ABG OXYGEN SATURATION 88.8 % (92.0-98.5); ABG PCO2 40.5 mmHg (35.0-45.0); ABG PH 7.169 (7.350-7.450); ABG PO2 59.3 mmHg (75.0-100.0); AaDO2 251.6 mmHg; COHb 0.3 % (0.5-1.5); MetHb 0.5 % (0.0-1.5); O2Hb 88.1 % (94.0-97.0); SITE, ABG A-Line
[2022-02-15] MEDS: PANTOPRAZOLE 40 MG VIAL IV SCH (08:48)
[2022-02-15] MEDS: MEROPENEM 500 MG in IV NS 0.9% 50 ML IV SCH ×2 (08:48→20:32)
[2022-02-15] MEDS: VANCOMYCIN 500 MG in IV D5W 100ml IV SCH (08:49)
[2022-02-15] MEDS: MULTIVITAMIN/LUTEIN/MINERALS 1 TAB PO SCH (08:50)
--- NOTE | 2022-02-15 09:14 | NUR ---
Protonix Held. Possible link with side effect of Throbocytopenia Platlett count trending down. Plt 39. will notify
[2022-02-15] MEDS: MICAFUNGIN SODIUM 100 MG in IV NS 0.9% 100 ML IV SCH (09:57)
[2022-02-15] MEDS ORDERED: IV Sodium Chloride 3% 500 ML 500 ML IV ONE (11:00)
[2022-02-15] MEDS ORDERED: IV Sodium Chloride 3% 500 ML 500 ML IV PRN (11:00)
[2022-02-15] MEDS ORDERED: CLINDAMYCIN IV RTU IN D5W 900 MG/50 ML PIGGYBACK IV SCH (12:00)
[2022-02-15] MEDS: CLINDAMYCIN 900 MG in IV D5W 50 ML IV SCH ×2 (12:03→20:02)
[2022-02-15] MEDS: AMIODARONE 450 MG in IV D5W 241 ML IV PRN (13:14)
[2022-02-15 17:39] LABS: CALCIUM, SERUM 6.8 mg/dL (8.5-10.1); CARBON DIOXIDE 15 mmol/L (21-32); CHLORIDE 90 mmol/L (98-107); CREATININE 2.3 mg/dL (0.6-1.3); GLUCOSE 138 mg/dL (74-106); POTASSIUM 3.6 mmol/L (3.5-5.1)
[2022-02-15 17:56] LABS: SODIUM SERUM 117 mmol/L (136-145); UREA NITROGEN, BLOOD 131 mg/dL (7-18)
[2022-02-15] MEDS: MIDAZOLAM HCL 100 MG in IV NS 0.9% 80 ML IV PRN (19:19)
--- NOTE | 2022-02-15 19:50 | NUR ---
ICU/RN: PER DAYSHIFT COMMUNICATION WITH DR. SVETLANA DEL VALLE TO STOP AMIODARONE DRIP.
[2022-02-15] MEDS ORDERED: TPN BAG #9 IV SCH ×4 (20:00)
[2022-02-15] MEDS ORDERED: VANCOMYCIN 500 MG in IV D5W 100ml IV SCH (21:00)
--- NOTE | 2022-02-15 22:30 | NUR ---
ICU/RN: LEVOPHED RESUMED FOR BP SUPPORT.
[2022-02-16] VITALS (90 sets, daily range): BP systolic 85–136; BP diastolic 33–60
[2022-02-16] MEDS: BLOOD SUGAR DIAGNOSTIC 1 EACH STRIP IN SCH ×4 (00:40→17:47)
[2022-02-16] MEDS: PHENYLEPHRINE 100 MG in IV NS 0.9% 240 ML IV PRN ×2 (01:53→12:24)
[2022-02-16 03:28] LABS: EOSINOPHILS % (AUTO) 0.2 % (0.0-6.0); HEMATOCRIT 22 % (33-45); LYMPHOCYTES # (AUTO) 0.5 K/uL (0.8-4.8); LYMPHOCYTES % (AUTO) 2.5 % (20.0-44.0); MEAN CORPUSCULAR HGB CONC 32 g/dl (31.0-36.0); MEAN CORPUSCULAR VOLUME 90 fL (82-100); MONOCYTES # (AUTO) 0.2 K/uL (0.1-1.30); MONOCYTES % (AUTO) 0.9 % (2.0-12.0); NEUTROPHILS # (AUTO) 20.4 K/uL (1.8-8.9); NEUTROPHILS % (AUTO) 96.4 % (43.0-81.0); RED BLOOD CELL COUNT(AUTO) 2.39 MIL/uL (4.0-5.2); WHITE BLOOD COUNT (AUTO) 21.1 K/uL (4.3-11.0)
[2022-02-16 03:38] LABS: PLATELET COUNT (AUTO) 46 K/uL (150-450)
[2022-02-16 03:43] LABS: CALCIUM, SERUM 7.3 mg/dL (8.5-10.1); CARBON DIOXIDE 14 mmol/L (21-32); CHLORIDE 88 mmol/L (98-107); CREATININE 2.4 mg/dL (0.6-1.3); GLUCOSE 111 mg/dL (74-106); MAGNESIUM 1.9 mg/dL (1.8-2.4); PHOSPHORUS 4.3 mg/dL (2.5-4.9); POTASSIUM 4.1 mmol/L (3.5-5.1)
[2022-02-16] MEDS: ALBUTEROL HALF STRENGTH 1.25 MG/3 ML VIAL.NEB NEB SCH ×6 (03:43→23:17)
[2022-02-16] MEDS: IPRATROPIUM NEB FS 0.5 MG/2.5 ML AMPUL.NEB NEB SCH ×6 (03:43→23:17)
[2022-02-16 03:59] LABS: SODIUM SERUM 116 mmol/L (136-145); UREA NITROGEN, BLOOD 140 mg/dL (7-18)
[2022-02-16 04:23] LABS: BAND % (MANUAL) 18 % (0.0-5.0); BASOPHILS % (MANUAL) 0 % (0.0-2.0); EOSINOPHILS % (MANUAL) 1 % (0-4); LYMPHOCYTES % (MANUAL) 8 % (16-48); MONOCYTES % (MANUAL) 9 % (0-11.0); NEUTROPHILS % (MANUAL) 64 (42-76)
[2022-02-16] MEDS: CLINDAMYCIN 900 MG in IV D5W 50 ML IV SCH ×3 (05:07→23:10)
--- NOTE | 2022-02-16 05:54 | NUR ---
ICU/RN: CRITICAL LABS RELAYED TO GAGAN KYLE ACNP. PLATLETS 46, SODIUM 116, AND BUN 140. ALSO RELAYED DROP IN HGB FROM 8 TO 7. NEW ORDER FOR 1 UNIT PRBCS. DEFER TO RENAL GROUP FOR SODIUM MANAGMENT.
--- NOTE | 2022-02-16 07:10 | NUR ---
CUSTOM GARMENT DESIGNER Bedside report taken from [facility] nurse Ronnie SANDHU. pt sedated and intubated. pt unresponsive, no movement or withdrawals in bue or ble. perrla, pt does not open eyes or follow commands. pt on ac vent setting with fio2 60%, pt tolerating well. fio2 100%. pt has ngt to low intermittent suction, intact and draining brown output. pt NSR on monitor. pt afebrile. pt npo at this time. pt has mcconnell, intact and draining minimal ck color urine, pt oliguric. pt has wounds, see flowsheet. pt has generalized weeping . all lines traced. all drips verified. safety measures in place. will continue to monitor.
[2022-02-16] MEDS: MEROPENEM 500 MG in IV NS 0.9% 50 ML IV SCH ×2 (08:06→23:10)
[2022-02-16] MEDS: PANTOPRAZOLE 40 MG VIAL IV SCH ×2 (08:11→17:44)
[2022-02-16] MEDS: MULTIVITAMIN/LUTEIN/MINERALS 1 TAB PO SCH (08:11)
--- NOTE | 2022-02-16 08:15 | NUR ---
OCEAN FREIGHT AGENT Dr Barajas at bedside assessing pt and updated on pt status. md talking with pt daughter at bedside and udpating on pt condition and plan of care. new orders pending per md at this time
[2022-02-16 08:17] LABS: ABG BASE EXCESS -13.3 mmol/L; ABG PCO2 31.9 mmHg (35.0-45.0); ABG PO2 88.7 mmHg (75.0-100.0); COHb 0.3 % (0.5-1.5); MetHb 0.8 % (0.0-1.5); O2Hb 94.9 % (94.0-97.0); SITE, ABG A-Line
--- NOTE | 2022-02-16 09:13 | NUR ---
COLOR PRINT INSPECTOR Dr Krueger at bedside assessing pt and updated on pt status. talking with pt daughter at bedside and udpating on pt condition and plan of care. no new orders at this time.
[2022-02-16] MEDS: MICAFUNGIN SODIUM 100 MG in IV NS 0.9% 100 ML IV SCH (09:15)
[2022-02-16] MEDS: FUROSEMIDE 100 MG/10 ML VIAL IV SCH ×3 (11:12→18:18)
[2022-02-16 12:14] LABS: PREALBUMIN 9.1 MG/DL (18.0-35.7)
[2022-02-16] MEDS ORDERED: TPN BAG #10 IV SCH ×2 (12:50)
--- NOTE | 2022-02-16 13:55 | NUR ---
SUPERVISOR FILTER ASSEMBLY central supply called 3 times for TPN tubing, awaiting TPN tubing to be delivered to ICU from central supply. charge nurse Lawerence aware.
[2022-02-16 13:59] LABS: ALBUMIN < 0.6 g/dL (3.4-5.0)
--- NOTE | 2022-02-16 14:10 | NUR ---
DATA ADMINISTRATOR Dr Sheth aware that critical albumin <0.6, no new orders at this time. charge nurse Benigno SANDHU aware.
[2022-02-16 15:21] LABS: HEMOGLOBIN 10.1 g/dL (11.5-14.8)
[2022-02-16] MEDS: INSULIN REGULAR, HUMAN 100 UNIT/ML 3 ML VIAL SQ PRN (17:50)
--- NOTE | 2022-02-16 19:03 | NUR ---
METALLURGICAL LAB TECHNICIAN Bedside report given to armaan Munoz RN, pt sedated and intubated. all lines traced. all drips verified. pt clean and dry. safety measures in place, no signs of acute distress at this time. family at bedside.
--- NOTE | 2022-02-16 20:05 | NUR ---
DATA PROCESSING SYSTEMS CONSULTANT. INITIAL ASSESSMENT. RECEIVED THE PT REST IN BED. ORALLY INTUBATED. SEDATED WITH VERSED 2MG/H, TPN 60 ML/H, WEST 2MCG/KG/MIN, REMAINING SAME VENT SETTINGS TOLEARTED WELL. SAT 99%, LILLI CUTE DISTRESS NOTED. OPERATION SUPERVISOR SHOWING NSR. IV RT IJ HD CATH, RT UPPERA RM PICC LINE. FC PATENT. HOB ELEVATED. WILL CONTINUE TO MONITOR VITALS.
--- NOTE | 2022-02-16 23:44 | NUR ---
CHICKEN AND FISH BUTCHER. HD CATH PLACED RT IJ . DURING PROCEDURE NO COMPLICATION NOTED
[2022-02-17] VITALS (84 sets, daily range): BP systolic 78–147; BP diastolic 30–69
[2022-02-17] MEDS: BLOOD SUGAR DIAGNOSTIC 1 EACH STRIP IN SCH ×4 (00:05→18:11)
[2022-02-17] MEDS: ALBUTEROL HALF STRENGTH 1.25 MG/3 ML VIAL.NEB NEB SCH ×6 (03:10→23:39)
[2022-02-17] MEDS: IPRATROPIUM NEB FS 0.5 MG/2.5 ML AMPUL.NEB NEB SCH ×6 (03:10→23:39)
--- NOTE | 2022-02-17 04:36 | NUR ---
HIV COUNSELOR. AM CARE GIVEN. REMAINING SAME VENT SETTINGS ON. SAT 98%. DIRECTOR PRODUCT SGOWING NSR. IV RT UPPER ARM PICC LINE. WEST 2MCG/KG/MIN, VERSED 2MG/H, TPN 60 ML/H. FC PATENT. URINE DRAINING. NGT LOW INTERMITTENT SUCTION. TURN AND REPOSITION Q2H. WILL CONTINUE TO MONITOR VITALS.
[2022-02-17] MEDS: CLINDAMYCIN 900 MG in IV D5W 50 ML IV SCH ×3 (04:40→23:10)
[2022-02-17] MEDS ORDERED: TPN BAG #11 IV SCH ×2 (05:00)
[2022-02-17 05:06] LABS: CALCIUM, SERUM 7.3 mg/dL (8.5-10.1); CARBON DIOXIDE 14 mmol/L (21-32); CHLORIDE 88 mmol/L (98-107); CREATININE 2.5 mg/dL (0.6-1.3); GLUCOSE 131 mg/dL (74-106); MAGNESIUM 1.9 mg/dL (1.8-2.4); PHOSPHORUS 5.6 mg/dL (2.5-4.9)
[2022-02-17 05:08] LABS: BASOPHILS # (AUTO) 0.1 K/uL (0.0-0.2); BASOPHILS % (AUTO) 0.4 % (0.0-2.0); EOSINOPHILS % (AUTO) 0.6 % (0.0-6.0); HEMATOCRIT 30 % (33-45); HEMOGLOBIN 9.9 g/dL (11.5-14.8); LYMPHOCYTES # (AUTO) 0.2 K/uL (0.8-4.8); MEAN CORPUSCULAR HGB CONC 33 g/dl (31.0-36.0); MEAN CORPUSCULAR VOLUME 89 fL (82-100); MONOCYTES # (AUTO) 0.1 K/uL (0.1-1.30); MONOCYTES % (AUTO) 0.4 % (2.0-12.0); NEUTROPHILS # (AUTO) 20.9 K/uL (1.8-8.9); NEUTROPHILS % (AUTO) 97.6 % (43.0-81.0); RED BLOOD CELL COUNT(AUTO) 3.41 MIL/uL (4.0-5.2); WHITE BLOOD COUNT (AUTO) 21.4 K/uL (4.3-11.0)
[2022-02-17 05:13] LABS: HDL CHOLESTEROL 12 mg/dL (40-60); LDL 27 mg/dL (0-99); TRIGLYCERIDES 58 mg/dL (30-150)
[2022-02-17 05:43] LABS: SODIUM SERUM 116 mmol/L (136-145); UREA NITROGEN, BLOOD 151 mg/dL (7-18)
[2022-02-17 05:45] LABS: CHOLESTEROL < 50 mg/dL (<200)
[2022-02-17 05:46] LABS: PLATELET COUNT (AUTO) 31 K/uL (150-450)
[2022-02-17] MEDS: INSULIN REGULAR, HUMAN 100 UNIT/ML 3 ML VIAL SQ PRN ×3 (06:19→18:14)
[2022-02-17] MEDS: MIDAZOLAM HCL 100 MG in IV NS 0.9% 80 ML IV PRN (06:58)
--- NOTE | 2022-02-17 07:25 | NUR ---
RN NOTES PT FOUND SEMI FOWLERS DISPLAYING NO S/S OF DISTRESS, FLACC = 0, RIKERS = 3 AND BILATERAL RISE AND FALL OF THE CHEST OBSERVED. R IJ HD CATH DRESSING IS CLEAN AND DRY. L EJ 20G IS PATENT AND INTACT. R UA PICC IS PATENT AND INTACT. KELLY CATH RESERVOIR BELOW PATIENT DRAINING BY GRAVITY. CVP MONITORING ONGOING, TRANSDUCER ZEROED AND LEVELED AT THE HEART. RN WILL CONTINUE CARE PLAN AND ANTICIPATE NEEDS. SAFETY MEASURES IN PLACE, BED LOCKED AND IN LOWEST POSITION, SIDE RAILS UPX2, CALL LIGHT WITHIN REACH, BED ALARM ARMED.
[2022-02-17] MEDS: MEROPENEM 500 MG in IV NS 0.9% 50 ML IV SCH ×2 (08:19→23:10)
[2022-02-17] MEDS: MULTIVITAMIN/LUTEIN/MINERALS 1 TAB PO SCH (08:20)
[2022-02-17] MEDS: PANTOPRAZOLE 40 MG VIAL IV SCH ×2 (08:20→17:48)
--- NOTE | 2022-02-17 08:20 | NUR ---
NURSES NOTES OCUVITE NOT GIVEN, ONGOING LOW INTERMITTENT SUCTIONING.
[2022-02-17] MEDS: MICAFUNGIN SODIUM 100 MG in IV NS 0.9% 100 ML IV SCH (10:10)
[2022-02-17 11:05] LABS: PREALBUMIN 8.9 MG/DL (18.0-35.7)
[2022-02-17 11:23] LABS: BAND % (MANUAL) 18 % (0.0-5.0); LYMPHOCYTES % (MANUAL) 1 % (16-48); METAMYELOCYTES % 1 % (0-0); MONOCYTES % (MANUAL) 8 % (0-11.0); NEUTROPHILS % (MANUAL) 72 (42-76)
[2022-02-17 11:47] LABS: ALBUMIN 0.5 g/dL (3.4-5.0)
--- NOTE | 2022-02-17 14:50 | NUR ---
MD COMMUNICATION RN SPOKE TO DR ATKINSON ABOUT PT HIGH POST DIALYSIS RR. MD GAVE ORDERS: RESTART FENTANYL AND TITRATE TO HAVE RR APPROACH AC. RN ACKNOWLEDGED AND WILL EXECUTE ORDER.
[2022-02-17] MEDS ORDERED: FENTANYL CITRAT IV 2,500 MCG in IV NS 0.9% 200 ML IV PRN (15:00)
[2022-02-17] MEDS: PHENYLEPHRINE 100 MG in IV NS 0.9% 240 ML IV PRN (18:31)
--- NOTE | 2022-02-17 19:15 | NUR ---
RN NOTES PT FOUND SEMI FOWLERS DISPLAYING NO S/S OF DISTRESS, FLACC = 0, RIKERS = 3 AND BILATERAL RISE AND FALL OF THE CHEST OBSERVED. R IJ HD CATH DRESSING IS CLEAN AND DRY. L EJ 20G IS PATENT AND INTACT. R UA PICC IS PATENT AND INTACT. KELLY CATH RESERVOIR BELOW PATIENT DRAINING BY GRAVITY. CVP MONITORING ONGOING, TRANSDUCER ZEROED AND LEVELED AT THE HEART. SBAR AND REPORT GIVEN TO DRAFTER ELECTRICAL RN, ALL QUESTIONS ANSWERED. SAFETY MEASURES IN PLACE, BED LOCKED AND IN LOWEST POSITION, SIDE RAILS UPX2, CALL LIGHT WITHIN REACH, BED ALARM ARMED.
--- NOTE | 2022-02-17 19:58 | NUR ---
PT RCVD ORALLY INTUBATED W/ 7.5 ETT SECURED @ 18 CM LIP LINE ON [facility] VENT SETTINGS OF AC 22, VT 475 PEEP 8, FIO2 60%. Q4 BREATHING TX GIVEN PER MD'S ORDER., NO ADVERSE REACTION NOTED. SUCTIONED SMALL AMOUNT OF WHITE THIN SECRETIONS. VENT PLUGGED INTO RED OUTLET, ALARMS ON AND AUDIBLE. AMBU BAG @ BEDSIDE . WILL CONTINUE TO MONITOR T/O SHIFT.
[2022-02-17] MEDS ORDERED: TPN BAG #12 IV SCH ×4 (21:00)
[2022-02-18] VITALS (85 sets, daily range): BP systolic 60–160; BP diastolic 27–76
[2022-02-18] MEDS: ALBUTEROL HALF STRENGTH 1.25 MG/3 ML VIAL.NEB NEB SCH ×6 (03:25→23:16)
[2022-02-18] MEDS: IPRATROPIUM NEB FS 0.5 MG/2.5 ML AMPUL.NEB NEB SCH ×6 (03:25→23:16)
[2022-02-18 05:02] LABS: CALCIUM, SERUM 7.1 mg/dL (8.5-10.1); CARBON DIOXIDE 21 mmol/L (21-32); CHLORIDE 95 mmol/L (98-107); CREATININE 1.6 mg/dL (0.6-1.3); GLUCOSE 85 mg/dL (74-106); MAGNESIUM 1.6 mg/dL (1.8-2.4); POTASSIUM 3.1 mmol/L (3.5-5.1); SODIUM SERUM 127 mmol/L (136-145)
[2022-02-18 05:03] LABS: CHOLESTEROL 38 mg/dL (<200); HDL CHOLESTEROL 12 mg/dL (40-60); LDL 24 mg/dL (0-99); TRIGLYCERIDES 48 mg/dL (30-150)
[2022-02-18 05:05] LABS: UREA NITROGEN, BLOOD 101 mg/dL (7-18)
[2022-02-18 05:14] LABS: BASOPHILS # (AUTO) 0.1 K/uL (0.0-0.2); BASOPHILS % (AUTO) 0.4 % (0.0-2.0); EOSINOPHILS % (AUTO) 0.2 % (0.0-6.0); HEMATOCRIT 29 % (33-45); HEMOGLOBIN 9.7 g/dL (11.5-14.8); LYMPHOCYTES # (AUTO) 0.2 K/uL (0.8-4.8); LYMPHOCYTES % (AUTO) 0.9 % (20.0-44.0); MEAN CORPUSCULAR HGB CONC 33 g/dl (31.0-36.0); MEAN CORPUSCULAR VOLUME 88 fL (82-100); MONOCYTES # (AUTO) 0.1 K/uL (0.1-1.30); MONOCYTES % (AUTO) 0.4 % (2.0-12.0); NEUTROPHILS % (AUTO) 98.1 % (43.0-81.0); RED BLOOD CELL COUNT(AUTO) 3.33 MIL/uL (4.0-5.2); WHITE BLOOD COUNT (AUTO) 19.4 K/uL (4.3-11.0)
--- NOTE | 2022-02-18 05:16 | NUR ---
INCREASED FIO2 TO 75% DUE TO DESATTING. RN LIZETTE AWARE
[2022-02-18] MEDS: CLINDAMYCIN 900 MG in IV D5W 50 ML IV SCH ×3 (05:35→21:01)
[2022-02-18] MEDS: BLOOD SUGAR DIAGNOSTIC 1 EACH STRIP IN SCH ×4 (05:46→18:26)
[2022-02-18 05:49] LABS: PLATELET COUNT (AUTO) 22 K/uL (150-450)
--- NOTE | 2022-02-18 06:06 | NUR ---
TEST INSPECTION ENGINEER. PT DESATURATED FIO2 INCREASED TO 70%. SAT 95%, WILL CONTINUE TO MONITOR.
--- NOTE | 2022-02-18 06:08 | NUR ---
BUYER AGENT. AM CARE GIVEN REMAINIING SAME VENT SETTINGS TOLERATED WELL. SAT 95%. FIO2 INCREASED TO 70%. BAG MACHINE TENDER SHOWING NSR. IV RT UPPER ARM PICC LINE WEST 3MCG/KG/MIN, TPN 60 ML/H, VERSED 2MG/H, WEST 3MCG/H. HOB ELEVATED. LAWRENCE DRAIN INTACT. FC PATENT. URINE DRAINING, NPO. NGT LOW INTERMITTENT SUCTION. TURN AND REPOSITION Q2H. WILL CONTINUE TO MONITOR VITALS.
--- NOTE | 2022-02-18 07:15 | NUR ---
PRESCHOOL ASSOCIATE TEACHER Bedside report taken from [facility] nurse Tammy SANDHU. pt sedated and intubated. pt unresponsive, no movement or withdrawals in bue or ble. perrla, pt does not open eyes or follow commands. pt on ac vent setting with fio2 70%, pt tolerating well. spo2 92%. pt has ngt to low intermittent suction, intact and draining brown output. pt NSR on monitor. pt afebrile. pt npo at this time. pt has mcconnell, intact and draining minimal ck color urine, pt oliguric. pt has wounds, see flowsheet. pt has generalized weeping . all lines traced. all drips verified. safety measures in place. Pt hypotensive with sbp 60s, pharmacy called, vasopressin and levophed requested stat. fentanyl and versed off at this time d/t hypotension. charge nurse Aki SANDHU aware. will continue to monitor.
[2022-02-18] MEDS: NOREPINEPHRINE 8 MG in IV NS 0.9% 242 ML IV PRN ×2 (07:31→21:06)
[2022-02-18] MEDS: PHENYLEPHRINE 100 MG in IV NS 0.9% 240 ML IV PRN ×2 (07:50→18:31)
[2022-02-18] MEDS: MEROPENEM 500 MG in IV NS 0.9% 50 ML IV SCH ×2 (08:13→21:00)
[2022-02-18] MEDS: MULTIVITAMIN/LUTEIN/MINERALS 1 TAB PO SCH (08:15)
[2022-02-18] MEDS: PANTOPRAZOLE 40 MG VIAL IV SCH ×2 (08:15→17:11)
--- NOTE | 2022-02-18 09:14 | NUR ---
fio2 increased from 75% to 90% due to 88-89% spo2. Addendum: 02/18/22 at 0915 by SELENE ROBLES RT Amended: Links added.
[2022-02-18 09:31] LABS: NEUTROPHILS % (MANUAL) 80 (42-76)
[2022-02-18 09:32] LABS: BAND % (MANUAL) 11 % (0.0-5.0); LYMPHOCYTES % (MANUAL) 6 % (16-48); MONOCYTES % (MANUAL) 3 % (0-11.0)
--- NOTE | 2022-02-18 09:45 | NUR ---
MANAGEMENT AND BUDGET ANALYST spoke to pharmacy and updated on start of vasopressin. pharmacy informed that vasopressin was started before levophed drip has been maxed out d/t pt heart rate increase. pt currently tachycardic with HR 109 and increasing as levophed is increased. pt has history of tachycardia/afib RVR and placed on amio drip in the past. ok per pharmacy. charge nurse Aki SANDHU aware.
[2022-02-18] MEDS: VASOPRESSIN INJ 40 UNIT in IV NS 0.9% 38 ML IV PRN ×2 (09:47→21:07)
[2022-02-18] MEDS: MICAFUNGIN SODIUM 100 MG in IV NS 0.9% 100 ML IV SCH (09:51)
[2022-02-18 10:09] LABS: ABG BASE EXCESS -14.4 mmol/L; ABG OXYGEN SATURATION 96.5 % (92.0-98.5); ABG PH 7.213 (7.350-7.450); ABG PO2 92.7 mmHg (75.0-100.0); COHb 0.3 % (0.5-1.5); MetHb 0.4 % (0.0-1.5); O2Hb 95.8 % (94.0-97.0); SITE, ABG A-Line; VENT MODE, BG ac 22 475 60% +10
[2022-02-18 10:09] LABS: ABG OXYGEN SATURATION 85.2 % (92.0-98.5); ABG PCO2 39.3 mmHg (35.0-45.0); ABG PH 7.282 (7.350-7.450); ABG PO2 52.8 mmHg (75.0-100.0); AaDO2 440.2 mmHg; COHb 0.2 % (0.5-1.5); MetHb 0.5 % (0.0-1.5); O2Hb 84.6 % (94.0-97.0); PEEP,BG 8 cm H2O; SITE, ABG Right Radial; VT, ABG 475 mL
[2022-02-18] MEDS ORDERED: Magnesium 1GM/D5W 100ML PREMIX 100 ML IV SCH (11:00)
[2022-02-18] MEDS ORDERED: POTASSIUM CL. PREMIX PERIPHER. 50 ML IV SCH ×2 (12:00→19:00)
[2022-02-18] MEDS ORDERED: TPN BAG #13 IV SCH ×4 (13:00)
--- NOTE | 2022-02-18 13:28 | NUR ---
vent changes below per dr. rogers: vt 450 ml peep +10 Addendum: 02/18/22 at 1329 by SELENE ROBLES RT Amended: Links added.
[2022-02-18] MEDS: FAT EMULSION 20% 500 ML in PREMIX 1 EA IV SCH (14:20)
--- NOTE | 2022-02-18 15:45 | NUR ---
TELEPHONE ASSEMBLER HD nurse at bedside to start HD. pt on 3 vasopressors, vitals stable. daughter at bedside. no signs of acute distress at this time. will continue to monitor.
--- NOTE | 2022-02-18 16:41 | NUR ---
FIO2 INCREASED FROM 90% TO 100% DUE TO 91% SPO2 Addendum: 02/18/22 at 1641 by SELENE ROBLES RT Amended: Links added.
[2022-02-18] MEDS: INSULIN REGULAR, HUMAN 100 UNIT/ML 3 ML VIAL SQ PRN (17:40)
--- NOTE | 2022-02-18 19:40 | NUR ---
BARREL CUTTER Bedside report given to [facility] nurse Sohan SANDHU. pt sedated and intubated. all lines traced. all drips verified. pt clean and dry. safety measures in place. vitals stable. no signs of acute distress at this time.
--- NOTE | 2022-02-18 19:45 | NUR ---
PROOF MACHINE OPERATOR NOTES RECEIVED PT FOR CONTINUITY OF CARE. PATIENT OBTUNDED IN NO S/SX OF ACUTE DISTRESS AT THIS TIME; CURRENTLY ON MECHANICAL VENT; SETTING PRESCRIBED, WITH 02 SAT 99% AT THIS TIME. RECEIVED PT WITH RUNNING DRIPS FOLLOWS: WEST RECEIVED AT 3MCG/KG/MIN ,PITRESSIN AT 0.03U/MIN, BOTH RUNNING , MONITORED AND ADJUSTED PER PROTOCOL. ALSO HAS RUNNING LIPIDS@20.83MLS/HR AND TPN @80MLS/HR. WITH NGT ON R NARE PLACEMENT VERIFIED VIA AUSCULTATION CONNECTED TO LIS. KELLY CATH IN PLACE, SMALL URINE OUTPUT NOTED. WILL ENSURE SAFETY MEASURES WITHIN THE SHIFT. PATIENT BED ALARM IS ON. HEAD OF BED ELEVATED. BED IS LOCKED, IN LOWEST POSITION AND SIDE RAILS UP. CALL LIGHT WITHIN REACH OF THE PATIENT.WILL CONTINUE TO MONITOR AND REASSESS FOR ANY CHANGES AND WILL CARRY OUT ANY ONGOING AND ACTIVE MD ORDER.
[2022-02-19] VITALS (88 sets, daily range): BP systolic 79–150; BP diastolic 37–83
[2022-02-19] MEDS: BLOOD SUGAR DIAGNOSTIC 1 EACH STRIP IN SCH ×4 (00:06→18:32)
[2022-02-19] MEDS: INSULIN REGULAR, HUMAN 100 UNIT/ML 3 ML VIAL SQ PRN ×4 (00:07→18:32)
[2022-02-19] MEDS ORDERED: TPN BAG #14 IV SCH ×2 (01:00)
[2022-02-19] MEDS: IPRATROPIUM NEB FS 0.5 MG/2.5 ML AMPUL.NEB NEB SCH ×6 (03:22→23:29)
[2022-02-19] MEDS: ALBUTEROL HALF STRENGTH 1.25 MG/3 ML VIAL.NEB NEB SCH ×6 (03:22→23:29)
--- NOTE | 2022-02-19 04:00 | NUR ---
CREDIT RATING INSPECTOR NOTES PATIENT REMAINED TO BE IN NO SIGNS OF ACUTE RESPIRATORY DISTRESS , VITAL SIGNS STABLE AT THIS TIME. REGULAR TURNING AND REPOSITIONING DONE, SUCTIONING DONE, SX DRESSING CHANGED AND AM PATIENT CARE RENDERED WILL CONTINUE TO MONITOR AND REASSESS FOR ANY CHANGES THROUGHOUT THE SHIFT.
[2022-02-19 04:44] LABS: BASOPHILS # (AUTO) 0.1 K/uL (0.0-0.2); BASOPHILS % (AUTO) 0.4 % (0.0-2.0); EOSINOPHILS % (AUTO) 2.1 % (0.0-6.0); HEMATOCRIT 31 % (33-45); HEMOGLOBIN 11.4 g/dL (11.5-14.8); LYMPHOCYTES # (AUTO) 0.2 K/uL (0.8-4.8); LYMPHOCYTES % (AUTO) 1.4 % (20.0-44.0); MEAN CORPUSCULAR HGB CONC 38 g/dl (31.0-36.0); MEAN CORPUSCULAR VOLUME 89 fL (82-100); MONOCYTES # (AUTO) 0.1 K/uL (0.1-1.30); MONOCYTES % (AUTO) 0.5 % (2.0-12.0); NEUTROPHILS # (AUTO) 16.5 K/uL (1.8-8.9); NEUTROPHILS % (AUTO) 95.6 % (43.0-81.0); RED BLOOD CELL COUNT(AUTO) 3.44 MIL/uL (4.0-5.2); WHITE BLOOD COUNT (AUTO) 17.2 K/uL (4.3-11.0)
[2022-02-19 05:00] LABS: CALCIUM, SERUM 6.6 mg/dL (8.5-10.1); CARBON DIOXIDE 22 mmol/L (21-32); CHLORIDE 96 mmol/L (98-107); GLUCOSE 280 mg/dL (74-106); MAGNESIUM 1.7 mg/dL (1.8-2.4); PHOSPHORUS 3.9 mg/dL (2.5-4.9); POTASSIUM 3.6 mmol/L (3.5-5.1); SODIUM SERUM 127 mmol/L (136-145); UREA NITROGEN, BLOOD 72 mg/dL (7-18)
[2022-02-19 05:15] LABS: PLATELET COUNT (AUTO) 31 K/uL (150-450)
[2022-02-19] MEDS: CLINDAMYCIN 900 MG in IV D5W 50 ML IV SCH ×3 (05:17→21:54)
[2022-02-19 05:39] LABS: CREATININE 1.2 mg/dL (0.6-1.3)
--- NOTE | 2022-02-19 06:50 | NUR ---
WASTE MACHINE TENDER CLOSING NOTE: PATIENT REMAINS IN ROOM IN NO SIGNS OF RESPIRATORY DISTRESS, PATIENT STILL ON MECH VENT; SETTINGS PRESCRIBED;TOLERATING WELL SATURATING @ >95% SP02. SR-ST ON MONITOR DURING THE SHIFT. CVP REMAINED AND MAINTAINED WITHIN 10-15 MMHG. SAFETY MEASURES IMPLEMENTED, BED IN LOWEST POSITION, LOCKED, SIDE RAILS UP, CALL LIGHT WITHIN REACH. ALL NEEDS AND ORDERS ADDRESSED DURING THE SHIFT. IV ACCESS MAINTAINED INTACT, SECURED AND FLUSHING WELL. ALL DUE MEDS GIVEN ORDERED & SCHEDULED ; PATIENT TOLERATED WELL. STILL WITH ONGOING DRIP FOLLOWS: WEST@3MCG/KG/MIN, LEVO@0.1 MCG/KG/MIN AND PITRESSIN@.02 UNITS/MIN ALL RUNNING AND MONITORED PER PROTOCOL. STILL WITH TPN AND LIPIDS RUNNING ORDERED. NGT ON R NARE INTACT AND SECURED STILL CONNECTED TO LIS, 50CC OUTPUT NOTED DURING THE SHIFT. SURGICAL SITE WITH ROSALINA INTACT NO NOTED BLEEDING OR SIGNS OF INFECTION, DRESSING CHANGED DONE. LAWRENCE DRAIN ALSO INTACT WITH 20CC OUTPUT NOTED DURING THE SHIFT. PATIENT KEPT CLEAN AND COMFORTABLE WITHIN THE SHIFT. PATIENT ENDORSED TO INCOMING SHIFT RN WITH STABLE VITAL SIGN AND FOR CONTINUITY OF CARE.
[2022-02-19] MEDS: PHENYLEPHRINE 100 MG in IV NS 0.9% 240 ML IV PRN ×2 (07:07→16:28)
--- NOTE | 2022-02-19 07:45 | NUR ---
ICU/RN PT INTUBATED ON THE VENT AC MODE,FIO2-100%,PEEP-10,SAT O2-94%,OFF SEDATION NOT RESPONSIVE, COMATOSE.NO REFLEXES.ON 3 PRESSORS.TPN ,LIPIDS.RIGHT UPPER ARM PICC LINE.RIGHT IJ HD CATHETER.CVP-14.RIGHT FEMORAL A-LINE.GENERALIZED EDEMA PRESENT .BLISTERS AND OPEN WOUNDS ALL OVER THE BODY.PT IS POST EXPLORATORY LAPAROTOMY HAS ABDOMINAL ROSALINA.COVERED WITH DRESSING ,LAWRENCE DRAINING WITH GREEN FLUIDS.NG TUBE CONNECTED TO LOW INTERMEDIATE SUCTION WITH MINIMAL BROWN SECRETION.PT IS NPO.AFEBRILE.LABS REVIEW. NOTIFIED.
[2022-02-19] MEDS: MULTIVITAMIN/LUTEIN/MINERALS 1 TAB PO SCH (09:00)
[2022-02-19] MEDS: MICAFUNGIN SODIUM 100 MG in IV NS 0.9% 100 ML IV SCH (09:15)
[2022-02-19] MEDS: PANTOPRAZOLE 40 MG VIAL IV SCH ×2 (09:15→16:21)
[2022-02-19] MEDS: MEROPENEM 500 MG in IV NS 0.9% 50 ML IV SCH ×2 (09:15→21:39)
[2022-02-19 09:57] LABS: LYMPHOCYTES % (MANUAL) 12 % (16-48); NEUTROPHILS % (MANUAL) 83 (42-76)
[2022-02-19 09:58] LABS: MONOCYTES % (MANUAL) 5 % (0-11.0)
[2022-02-19] MEDS ORDERED: Magnesium 1GM/D5W 100ML PREMIX 100 ML IV SCH ×2 (13:00→17:00)
[2022-02-19] MEDS ORDERED: TPN BAG #15 IV SCH ×4 (13:00)
--- NOTE | 2022-02-19 15:00 | NUR ---
ICU/RN EEG DONE.MD NOTIFIED.
[2022-02-19] MEDS: NOREPINEPHRINE 8 MG in IV NS 0.9% 242 ML IV PRN (16:29)
[2022-02-19] MEDS: IV NS 0.9% 250 ML IV PRN (16:53)
--- NOTE | 2022-02-19 17:00 | NUR ---
ICU/RN PT IS NOT TOLERATED HD,HR UP TO140 BPM.BP DECREASED.HD STOP.400 ML OUT.
--- NOTE | 2022-02-19 18:00 | NUR ---
ICU/RN PM CARE PROVIDED.DUE MEDS ARE GIVEN ORDERED.WOUND DRESSING DONE ORDERED.CONTINUE MONITORING.FAMILY AT BEDSIDE.
--- NOTE | 2022-02-19 21:20 | NUR ---
ICU/OPERATIONS RESEARCH SCIENTIST INCREASED HEART RATE TO 150'S, PT APPEARS TO GO IN AND OUT OF AFIB AND ST. EKG WAS DONE SHOWS SINUS TACH. CHARGE NURSE MADE AWARE. WILL CONTINUE TO MONITOR THIS PT
--- NOTE | 2022-02-19 21:34 | NUR ---
RT NOTE INCREASED HR NOTED. EKG DONE. RESULTS REPORTED TO NURSE RAMEY
--- NOTE | 2022-02-19 21:45 | NUR ---
ICU/SECTION CUTTER PT IS HAVING INCREASED PEEK PRESSURE ALONG WITH DESATURATION. ORDERED STAT CHEST XRAY TO R/O PNEMOTHORAX. WILL CONTINUE TO MONITOR THIS PT AND HER SATURATION
--- NOTE | 2022-02-19 23:30 | NUR ---
ICU/NICKER AND BREAKER CHARGE NURSE MADE AWARE OF PT'S LOW BP EARLY IN SHIFT, CHARGE NURSE TITRATED THE LEVO UP AND DOWN. NOW CURRENTLY AT 0.3. WILL CONTINUE TO MONITOR THIS PT AND HER SATURATION.
[2022-02-20] VITALS (102 sets, daily range): BP systolic 81–166; BP diastolic 40–90
--- NOTE | 2022-02-20 | NUR ---
ICU/INDEPENDENT FILM MAKER THERE IS NO CHANGE ON THE XRAY FROM YESTERDAY. WILL CONTINUE TO MONITOR THIS PT AND HER SATURATION
[2022-02-20] MEDS: BLOOD SUGAR DIAGNOSTIC 1 EACH STRIP IN SCH ×5 (00:17→23:57)
[2022-02-20] MEDS: INSULIN REGULAR, HUMAN 100 UNIT/ML 3 ML VIAL SQ PRN ×3 (00:19→23:58)
[2022-02-20] MEDS: NOREPINEPHRINE 8 MG in IV NS 0.9% 242 ML IV PRN ×3 (00:25→17:59)
[2022-02-20] MEDS ORDERED: TPN BAG #16 IV SCH ×2 (01:00)
[2022-02-20] MEDS: ALBUTEROL HALF STRENGTH 1.25 MG/3 ML VIAL.NEB NEB SCH ×6 (03:53→23:22)
[2022-02-20] MEDS: IPRATROPIUM NEB FS 0.5 MG/2.5 ML AMPUL.NEB NEB SCH ×6 (03:53→23:22)
[2022-02-20] MEDS: PHENYLEPHRINE 100 MG in IV NS 0.9% 240 ML IV PRN ×2 (04:04→14:32)
[2022-02-20] MEDS: CLINDAMYCIN 900 MG in IV D5W 50 ML IV SCH ×3 (04:30→21:31)
[2022-02-20 04:56] LABS: BASOPHILS # (AUTO) 0.1 K/uL (0.0-0.2); BASOPHILS % (AUTO) 0.3 % (0.0-2.0); HEMATOCRIT 31 % (33-45); HEMOGLOBIN 10.1 g/dL (11.5-14.8); LYMPHOCYTES # (AUTO) 0.2 K/uL (0.8-4.8); LYMPHOCYTES % (AUTO) 0.8 % (20.0-44.0); MEAN CORPUSCULAR HGB CONC 33 g/dl (31.0-36.0); MEAN CORPUSCULAR VOLUME 89 fL (82-100); MONOCYTES # (AUTO) 0.2 K/uL (0.1-1.30); NEUTROPHILS % (AUTO) 95.9 % (43.0-81.0); RED BLOOD CELL COUNT(AUTO) 3.48 MIL/uL (4.0-5.2)
[2022-02-20 04:59] LABS: CALCIUM, SERUM 7.3 mg/dL (8.5-10.1); CREATININE 1.2 mg/dL (0.6-1.3); MAGNESIUM 1.9 mg/dL (1.8-2.4); PHOSPHORUS 3.9 mg/dL (2.5-4.9); POTASSIUM 3.1 mmol/L (3.5-5.1)
[2022-02-20 05:18] LABS: PLATELET COUNT (AUTO) 13 K/uL (150-450)
--- NOTE | 2022-02-20 06:48 | NUR ---
ICU/ROLL GRINDER PLT ARE 13, YESTERDAY WAS 22. 1 UNIT OF PLT ORDERED FOR THIS PT. CHARGE NURSE PLACED ORDER FOR TYPE AND CROSS
[2022-02-20 08:50] LABS: ABG BASE EXCESS -7.5 mmol/L; ABG OXYGEN SATURATION 93.3 % (92.0-98.5); ABG PCO2 53.9 mmHg (35.0-45.0); ABG PH 7.203 (7.350-7.450); ABG PO2 74.2 mmHg (75.0-100.0); AaDO2 584.9 mmHg; COHb 0.8 % (0.5-1.5); MetHb 0.2 % (0.0-1.5); O2Hb 92.4 % (94.0-97.0); SITE, ABG Right Radial
[2022-02-20] MEDS: MULTIVITAMIN/LUTEIN/MINERALS 1 TAB PO SCH (09:00)
[2022-02-20] MEDS: PANTOPRAZOLE 40 MG VIAL IV SCH ×2 (09:01→17:25)
[2022-02-20] MEDS: MEROPENEM 500 MG in IV NS 0.9% 50 ML IV SCH ×2 (09:01→20:55)
[2022-02-20] MEDS: MICAFUNGIN SODIUM 100 MG in IV NS 0.9% 100 ML IV SCH (09:51)
[2022-02-20 10:43] LABS: BAND % (MANUAL) 6 % (0.0-5.0); BASOPHILS % (MANUAL) 0 % (0.0-2.0); EOSINOPHILS % (MANUAL) 2 % (0-4); LYMPHOCYTES % (MANUAL) 5 % (16-48); MONOCYTES % (MANUAL) 5 % (0-11.0); NEUTROPHILS % (MANUAL) 82 (42-76)
[2022-02-20] MEDS ORDERED: TPN BAG #17 IV SCH ×4 (13:00)
[2022-02-20] MEDS: FAT EMULSION 20% 500 ML in PREMIX 1 EA IV SCH (15:12)
[2022-02-20] MEDS: POTASSIUM CL. PREMIX PERIPHER. 50 ML IV SCH ×2 (15:16→16:29)
--- NOTE | 2022-02-20 16:16 | NUR ---
DR BENAVIDEZ AT THE UNIT MADE AWARE OF THE HIGH BP READING POST HD SESSION, NO ORDER MADE
--- NOTE | 2022-02-20 16:17 | NUR ---
NOTIFIED DR. LEHMAN REGARDING THE LAWRENCE DRAIN ABD. SITE WITH PUS-LIKE ON ITS AREA SURROUNDING THE LAWRENCE TUBE WITH PINKISH-RED WELL. NO NEW ORDER MADE. DR. BENAVIDEZ AT THE UNIT ALSO AWARE NO ORDER MADE. CHARGE NURSE AWARE.
--- NOTE | 2022-02-20 17:33 | NUR ---
RT PATIENT REMAINS ORALLY INTUBATED ON [facility] VENT WITH ORDERED SETTINGS. ETT SECURE AND IN PROPER POSITION. AIRWAY SUCTIONED AND PATENT. PATIENT IN CRITICAL CONDITION. AMBU BAG AT HOB. CONT CURRENT PLAN OF CARE. Addendum: 02/20/22 at 1734 by SLAVA SILVA RT Amended: Links added.
[2022-02-20] MEDS: IV NS 0.9% 250 ML IV PRN (17:36)
--- NOTE | 2022-02-20 22:30 | NUR ---
ICU/OXIDE FURNACE TENDER CHARGE NURSE SPOKE TO FAMILY ABOUT COMFORT CARE, THEY AGREED. THEY ASKED FOR HER TO TALK TO THE SON.
[2022-02-20] MEDS ORDERED: TPN BAG #18 IV SCH ×2 (23:00)
[2022-02-21] VITALS (48 sets, daily range): BP systolic 66–127; BP diastolic 26–94
--- NOTE | 2022-02-21 02:00 | NUR ---
ICU/SLEEVE MACHINE TENDER CHARGE NURSE SPOKE TO THE SON OF THE PT ABOUT COMFORT CARE. SON AGREED SAID TODAY HE WOULD LIKE FAMILY TO COME SAY GOOD BYE.
[2022-02-21] MEDS: PHENYLEPHRINE 100 MG in IV NS 0.9% 240 ML IV PRN ×2 (02:18→13:33)
[2022-02-21 03:58] LABS: BASOPHILS # (AUTO) 0.1 K/uL (0.0-0.2); BASOPHILS % (AUTO) 0.4 % (0.0-2.0); EOSINOPHILS % (AUTO) 3.3 % (0.0-6.0); HEMATOCRIT 28 % (33-45); HEMOGLOBIN 10.5 g/dL (11.5-14.8); LYMPHOCYTES # (AUTO) 0.2 K/uL (0.8-4.8); LYMPHOCYTES % (AUTO) 0.9 % (20.0-44.0); MEAN CORPUSCULAR HGB CONC 38 g/dl (31.0-36.0); MEAN CORPUSCULAR VOLUME 93 fL (82-100); MONOCYTES # (AUTO) 0.1 K/uL (0.1-1.30); MONOCYTES % (AUTO) 0.5 % (2.0-12.0); NEUTROPHILS # (AUTO) 21.7 K/uL (1.8-8.9); NEUTROPHILS % (AUTO) 94.9 % (43.0-81.0); WHITE BLOOD COUNT (AUTO) 22.8 K/uL (4.3-11.0)
[2022-02-21] MEDS: IPRATROPIUM NEB FS 0.5 MG/2.5 ML AMPUL.NEB NEB SCH ×3 (04:15→11:30)
[2022-02-21] MEDS: ALBUTEROL HALF STRENGTH 1.25 MG/3 ML VIAL.NEB NEB SCH ×3 (04:15→11:30)
[2022-02-21 04:26] LABS: PLATELET COUNT (AUTO) 33 K/uL (150-450)
[2022-02-21] MEDS: NOREPINEPHRINE 8 MG in IV NS 0.9% 242 ML IV PRN (04:32)
[2022-02-21] MEDS: CLINDAMYCIN 900 MG in IV D5W 50 ML IV SCH ×2 (04:36→13:36)
[2022-02-21 05:08] LABS: BAND % (MANUAL) 9 % (0.0-5.0); BASOPHILS % (MANUAL) 0 % (0.0-2.0); EOSINOPHILS % (MANUAL) 3 % (0-4); LYMPHOCYTES % (MANUAL) 4 % (16-48); MONOCYTES % (MANUAL) 3 % (0-11.0); NEUTROPHILS % (MANUAL) 81 (42-76)
[2022-02-21] MEDS: BLOOD SUGAR DIAGNOSTIC 1 EACH STRIP IN SCH ×2 (05:47→12:08)
[2022-02-21] MEDS: INSULIN REGULAR, HUMAN 100 UNIT/ML 3 ML VIAL SQ PRN ×2 (05:56→12:31)
--- NOTE | 2022-02-21 06:00 | NUR ---
icu/processing clerk hd stopped due to the fact pt is going to be comfort care.
[2022-02-21] MEDS ORDERED: NOREPINEPHRINE 32 MG in IV NS 0.9% 218 ML IV PRN (06:30)
--- NOTE | 2022-02-21 06:36 | NUR ---
ICU/MINER PICK SPOKE TO PHARMACY ABOUT CHANGING OVER THE LEVO TO 32MG FROM 8MG
--- NOTE | 2022-02-21 07:30 | NUR ---
RN NOTES PT FOUND SEMI FOWLERS DISPLAYING NO S/S OF ACUTE DISTRESS, FLACC = 0 AND BILATERAL RISE AND FALL OF THE CHEST OBSERVED. R NARE NGT HAS LOW INTERMITTENT SUCTIONING ONGOING. DARK FLUID OBSERVED IN TUBE BUT VERY LITTLE IN RESERVOIR. R UA PICC IS PATENT, BLOOD OBSERVED IN DRESSING. R IJ HD CATH DRESSING IS CLEAN AND DRY. LAWRENCE DRAIN IS INTACT, FLUID SIMILAR TO NGT. DIFFICULT TO OBTAIN BP. KELLY CATH RESERVOIR BELOW PATIENT DRAINING BY GRAVITY. RN WILL CONTINUE CARE PLAN AND ANTICIPATE NEEDS. SAFETY MEASURES IN PLACE, BED LOCKED AND IN LOWEST POSITION, SIDE RAILS UPX2, CALL LIGHT WITHIN REACH, BED ALARM ARMED.
[2022-02-21 08:01] LABS: CALCIUM, SERUM 6.9 mg/dL (8.5-10.1); CARBON DIOXIDE 18 mmol/L (21-32); CHLORIDE 94 mmol/L (98-107); CREATININE 1.1 mg/dL (0.6-1.3); GLUCOSE 241 mg/dL (74-106); MAGNESIUM 1.6 mg/dL (1.8-2.4); PHOSPHORUS 4.1 mg/dL (2.5-4.9); POTASSIUM 3.2 mmol/L (3.5-5.1); SODIUM SERUM 124 mmol/L (136-145); UREA NITROGEN, BLOOD 64 mg/dL (7-18)
[2022-02-21] MEDS ORDERED: TPN BAG #19 IV SCH ×4 (09:00)
[2022-02-21] MEDS: MULTIVITAMIN/LUTEIN/MINERALS 1 TAB PO SCH (09:00)
[2022-02-21] MEDS: PANTOPRAZOLE 40 MG VIAL IV SCH (09:14)
[2022-02-21] MEDS: MEROPENEM 500 MG in IV NS 0.9% 50 ML IV SCH (09:14)
[2022-02-21] MEDS: MICAFUNGIN SODIUM 100 MG in IV NS 0.9% 100 ML IV SCH (10:15)
--- NOTE | 2022-02-21 11:15 | NUR ---
MD VISIT DO BENAVIDEZ VISITED PT, HAD DISCUSSION WITH FAMILY, RN ABOUT TRANSITION TO COMFORT CARE. HOSPITALIST ORDERS ARE: AT 1600, CHANGE CODE STATUS TO COMFORT CARE, STOP ALL TREATMENTS, PUSH 4 MG MORPHINE IV FOLLOWED BY IV DRIP AT 4 MG/HR AND TITRATE FOR COMFORT, SCOPOLAMINE PATCH, EXTUBATE AND FOLLOW UP WITH 15L O2 NRB.
[2022-02-21] MEDS: Magnesium 1GM/D5W 100ML PREMIX 100 ML IV SCH ×2 (11:26→12:38)
[2022-02-21] MEDS: POTASSIUM CL. PREMIX PERIPHER. 50 ML IV SCH ×3 (11:26→13:37)
--- NOTE | 2022-02-21 14:20 | NUR ---
RN NOTE PT WAS SHOWING NO CARDIAC ACTIVITY ON BEDSIDE MONITOR. RN PERFORMED PALPATION OF FEMORAL ARTERY, FELT NO PULSE. PHOEBE TURNER ALSO PALPATED FEMORAL ARTERY AND COULD NOT DETECT PULSE. EYE BALLS WERE TOUCHED WITH STERILE SWAB, NO RESPONSE. ARM WAS LIFTED UP, FELL. AUSCULTATION FOUND NO S1 OR S2 APICALLY. BOTH PRIMARY RN AND CN JOHNNY PRONOUNCED PT AT 1420.
[2022-02-21] MEDS ORDERED: DC PROPOFOL WHEN EXTUBATED XX PRN (14:30)
[2022-02-21] MEDS ORDERED: MORPHINE SULFATE INJ 4 MG/ML DISP.SYRIN IV ONE (14:30)
[2022-02-21] MEDS ORDERED: MORPHINE SULFATE PF DRIP 250 MG in IV D5W 240 ML IV PRN (14:30)
[2022-02-21] MEDS ORDERED: SCOPOLAMINE PATCH 1 MG/72HR TD ONE (14:30)
--- NOTE | 2022-02-21 14:30 | NUR ---
RT PER MD ORDER PATIENT WAS TERMINALLY EXTUBATED. FAMILY AT BEDSIDE. Addendum: 02/21/22 at 1450 by SLAVA SILVA RT Amended: Links added.
--- NOTE | 2022-02-21 14:55 | NUR ---
[facility] [place] NUMBER [id number]
--- NOTE | 2022-02-21 16:45 | NUR ---
RN NOTE [facility] CLAIMED REMAINS. LEFT W/ AJIT.
[2022-02-21] MEDS ORDERED: TPN BAG #20 IV SCH ×4 (19:00)
[2022-02-22] MEDS ORDERED: TPN BAG #21 IV SCH ×2 (05:00)
== END 2022-02-21 17:21 | DRG 853 ==
LOC: ER 21:38 → MEDSG1 01-26 01:07 → TELE1 01-26 05:40 → ICU 01-26 08:00 → TELE-TD 01-31 11:52 → TELE1 02-01 12:53 → MEDSG1 02-04 20:21 → TELE1 02-08 18:02 → TELE-TD 02-08 19:11 → ICU 02-08 22:39
PROVIDERS: ADMIT Internal Medicine; ATTEND Student in an Organized Health Care Education/Training Program
PROC: 0DQ90ZZ Repair Duodenum, Open Approach (ICD-10-PCS; principal; 2022-01-26)
PROC: 5A1945Z Respiratory Ventilation, 24-96 Consecutive Hours (ICD-10-PCS; 2022-01-26)
PROC: 0BH18EZ Insertion of Endotracheal Airway into Trachea, Via Natural or Artificial Opening Endoscopic (ICD-10-PCS; 2022-01-26)
PROC: 0W9G00Z Drainage of Peritoneal Cavity with Drainage Device, Open Approach (ICD-10-PCS; 2022-01-26)
PROC: 05HB33Z Insertion of Infusion Device into Right Basilic Vein, Percutaneous Approach (ICD-10-PCS; 2022-01-26)
PROC: 30233N1 Transfusion of Nonautologous Red Blood Cells into Peripheral Vein, Percutaneous Approach (ICD-10-PCS; 2022-01-28)
PROC: 5A09457 Assistance with Respiratory Ventilation, 24-96 Consecutive Hours, Continuous Positive Airway Pressure (ICD-10-PCS; 2022-01-29)
PROC: 5A09357 Assistance with Respiratory Ventilation, Less than 24 Consecutive Hours, Continuous Positive Airway Pressure (ICD-10-PCS; 2022-02-09)
PROC: 0BH18EZ Insertion of Endotracheal Airway into Trachea, Via Natural or Artificial Opening Endoscopic (ICD-10-PCS; 2022-02-10)
PROC: 5A1955Z Respiratory Ventilation, Greater than 96 Consecutive Hours (ICD-10-PCS; 2022-02-10)
PROC: 02HV33Z Insertion of Infusion Device into Superior Vena Cava, Percutaneous Approach (ICD-10-PCS; 2022-02-10)
PROC: B548ZZA Ultrasonography of Superior Vena Cava, Guidance (ICD-10-PCS; 2022-02-10)
PROC: 5A1D70Z Performance of Urinary Filtration, Intermittent, Less than 6 Hours Per Day (ICD-10-PCS; 2022-02-17)
PROC: 05HM33Z Insertion of Infusion Device into Right Internal Jugular Vein, Percutaneous Approach (ICD-10-PCS; 2022-02-17)
PROC: B543ZZA Ultrasonography of Right Jugular Veins, Guidance (ICD-10-PCS; 2022-02-17)
PROC: 30233R1 Transfusion of Nonautologous Platelets into Peripheral Vein, Percutaneous Approach (ICD-10-PCS; 2022-02-20)
DX: A41.89 Other specified sepsis (principal); E43 Unspecified severe protein-calorie malnutrition; K26.5 Chronic or unspecified duodenal ulcer with perforation; U07.1 COVID-19; J96.01 Acute respiratory failure with hypoxia; K65.9 Peritonitis, unspecified; R65.21 Severe sepsis with septic shock; J96.02 Acute respiratory failure with hypercapnia; N17.0 Acute kidney failure with tubular necrosis; I21.4 Non-ST elevation (NSTEMI) myocardial infarction; J12.82 Pneumonia due to coronavirus disease 2019; E87.20 Acidosis, unspecified; E87.1 Hypo-osmolality and hyponatremia; M84.48XA Pathological fracture, other site, initial encounter for fracture; J98.11 Atelectasis; D68.59 Other primary thrombophilia; J90 Pleural effusion, not elsewhere classified; G93.40 Encephalopathy, unspecified; R64 Cachexia; M84.411A Pathological fracture, right shoulder, initial encounter for fracture; K91.89 Other postprocedural complications and disorders of digestive system; Y83.8 Other surgical procedures as the cause of abnormal reaction of the patient, or of later complication, without mention of misadventure at the time of the procedure; I10 Essential (primary) hypertension; K66.8 Other specified disorders of peritoneum; Z66 Do not resuscitate; Z51.5 Encounter for palliative care; Z91.81 History of falling; Z79.899 Other long term (current) drug therapy; D63.8 Anemia in other chronic diseases classified elsewhere; E87.5 Hyperkalemia; E87.6 Hypokalemia; T40.2X5A Adverse effect of other opioids, initial encounter; Y92.89 Other specified places as the place of occurrence of the external cause; E86.0 Dehydration; E78.1 Pure hyperglyceridemia; E83.39 Other disorders of phosphorus metabolism; E83.42 Hypomagnesemia; E88.09 Other disorders of plasma-protein metabolism, not elsewhere classified; E87.70 Fluid overload, unspecified; E83.51 Hypocalcemia; I48.91 Unspecified atrial fibrillation; B37.9 Candidiasis, unspecified; K56.41 Fecal impaction; Y95 Nosocomial condition; D69.6 Thrombocytopenia, unspecified
CPT/HCPCS: 31720; 36415; 36600; 71045-TC; 71250-TC; 74018; 76604-TC; 80048-TC; 80053-TC; 80061-TC; 80202-TC; 82040-TC; 82272-TC; 82310-TC; 82330; 82533; 82803-TC; 82962-TC; 83605-TC; 83735-TC; 83970; 84100-TC; 84132-TC; 84134-TC; 84478-TC; 84484-TC; 85025-TC; 85027-TC; 85378-TC; 85610-TC; 85730-TC; 86140-TC; 86706; 86850-TC; 87040-TC; 87070-TC; 87075-TC; 87081-TC; 87086-TC; 87186-TC; 87340; 90935-TC; 92526; 92611-TC; 92950-TC; 93307-TC; 93970-TC; 94002-TC; 94003-TC; 94760-TC; 94762-TC; 94799-TC; 95819-TC; 97110-TC; 97530-TC; A4216; A4217; A4624; A6253; A6403; C9113; C9803; G0378; J0171; J0282; J0610; J0690; J1644; J1720; J1815; J1940; J2185; J2248; J2250; J2270; J2370; J2405; J2543; J2765; J2920; J3010; J3370; J3475; J3480; J3490; J7030; J7040; J7042; J7050; J7060; P9016; P9034; Q9968